=== PATIENT | male | born 1960 | race American Indian/Alaskan Native ===

== ENCOUNTER 2018-09-25 06:04 | Inpatient (IN) | payer BC, OTHER, SELFPAY ==
[2018-09-25] MEDS ORDERED: NACL 0.9% 1000 ML 1,000 ML IV ONE ×2 (06:51→07:56)
[2018-09-25 07:13] LABS: Hematocrit 41.3 % (35.5-45.6); Hemoglobin 13.7 gm/dl (11.8-15.2); Mean Corpuscular HGB Conc 33 % (32-34); Mean Corpuscular Volume 85 fl (84-94); Platelet Count 237 K/mm3 (140-440); Red Blood Count 4.87 M/mm3 (3.65-5.03); Red Cell Distribution Width 15.4 % (13.2-15.2)
[2018-09-25 07:32] LABS: Albumin 3.8 g/dL (3.9-5); Calcium 9.1 mg/dL (8.4-10.2)
[2018-09-25 07:45] LABS: Bilirubin,Urine NEG (Negative); Blood,Urine MOD (Negative); Color,Urine Amber (Yellow)
[2018-09-25] MEDS ORDERED: ZOSYN/NS 4.5GM/100ML 4.5 GM/100 ML VIAL IV ONE (07:56)
[2018-09-25] MEDS ORDERED: SUBLIMAZE IV ONE (08:05)
[2018-09-25] MEDS ORDERED: ZOFRAN IV ONE (08:05)
--- NOTE | 2018-09-25 08:10 | Emergency Department Report ---
ED Abdominal Pain HPI - General Chief Complaint: Abdominal Pain Stated Complaint: ABD PAIN Time Seen by Provider: 09/25/18 07:47 Source: patient Mode of arrival: Ambulatory Limitations: No Limitations - History of Present Illness Initial Comments: This is a 50-year-old male with abdominal pain who has just been recently placed in the bed. He tells me he's had left lower quadrant pain for the past approximately 3 days. He is a bit vague as to the acuity of onset. He states it's been progressive over the last 3 days and have bring his ability to walk. This is his first medical evaluation. The pain is severe. He is found to have an exquisitely tender abdomen. He states he's had no prior abdominal surgery however examination revealed presence of a previous inguinal hernia repair. He states he's had a lumbar fusion. MD Complaint: abdominal pain -: Gradual Location: LLQ Radiation: none Migration to: no migration Severity scale (0 -10): 10 Consistency: constant Improves With: nothing Worsens With: nothing - Related Data Allergies Allergy/AdvReac Type Severity Reaction Status Date / Time No Known Allergies Allergy Unverified 09/25/18 06:51 ED Review of Systems ROS: Stated complaint: ABD PAIN Other details as noted in HPI Constitutional: denies: chills, fever Eyes: denies: eye pain, eye discharge, vision change ENT: denies: ear pain, throat pain Respiratory: denies: cough, shortness of breath, wheezing Cardiovascular: denies: chest pain, palpitations Endocrine: no symptoms reported Gastrointestinal: as per HPI, abdominal pain. denies: diarrhea Genitourinary: denies: urgency, dysuria Musculoskeletal: denies: back pain, joint swelling, arthralgia Skin: denies: rash, lesions Neurological: denies: headache, weakness, paresthesias Psychiatric: denies: anxiety, depression Hematological/Lymphatic: denies: easy bleeding, easy bruising ED Past Medical Hx - Past Medical History Hx Hypertension: Yes - Surgical History Additional Surgical History: Back Fusion, Bilateral Knee Replacement. - Social History Smoking Status: Current Every Day Smoker Substance Use Type: None ED Physical Exam - General Limitations: No Limitations General appearance: alert, in no apparent distress - Head Head exam: Present: atraumatic, normocephalic - Eye Eye exam: Present: normal appearance - ENT ENT exam: Present: mucous membranes moist - Neck Neck exam: Present: normal inspection - Respiratory Respiratory exam: Present: normal lung sounds bilaterally. Absent: respiratory distress - Cardiovascular Cardiovascular Exam: Present: regular rate, normal rhythm. Absent: systolic murmur, diastolic murmur, rubs, gallop - GI/Abdominal GI/Abdominal exam: Present: soft, distended, tenderness, guarding, rebound, rigid (somewhat), diminished bowel sounds - Rectal Rectal exam: Present: deferred - Extremities Exam Extremities exam: Present: normal inspection - Back Exam Back exam: Present: normal inspection - Neurological Exam Neurological exam: Present: alert, oriented X3, CN II-XII intact. Absent: motor sensory deficit - Psychiatric Psychiatric exam: Present: normal affect, normal mood - Skin Skin exam: Present: warm, dry, intact, normal color. Absent: rash ED Course Vital Signs 09/25/18 09/25/18 09/25/18 06:07 08:21 09:00 Temperature 99.7 F H Pulse Rate 129 H 121 H Respiratory 18 16 18 Rate Blood Pressure 131/79 Blood Pressure 138/92 [Left] O2 Sat by Pulse 96 95 Oximetry - Reevaluation(s) Reevaluation #1: Chest x-ray suggesting the possibility of pneumoperitoneum on the right. An emergency plain CT will be performed. The surgeon has been paged. 09/25/18 08:21 Reevaluation #2: Discussed with radiologist. Discussed with general surgeon. He requested admission to medicine. Surgeon has assumed care. 09/25/18 10:31 ED Medical Decision Making - Lab Data Result diagrams: 09/25/18 07:03 09/25/18 07:03 Critical Care Time: Yes Critical care time in (mins) excluding proc time.: 70 Critical care attestation.: If time is entered above; I have spent that time in minutes in the direct care of this critically ill patient, excluding procedure time. ED Disposition Clinical Impression: Perforation bowel, Diverticulitis, Phlegmon Abdominal pain Qualifiers: Abdominal location: generalized Qualified Code(s): R10.84 - Generalized abdominal pain Disposition: OP ADMIT IP TO THIS HOSP Is pt being admited?: Yes Does the pt Need Aspirin: No Condition: Stable Time of Disposition: 10:33
[2018-09-25 08:36] LABS: INR 1.14 (0.87-1.13)
[2018-09-25 08:37] LABS: Partial Thromboplastin Time 36.5 Sec. (24.2-36.6)
--- NOTE | 2018-09-25 08:52 | XRay Report ---
FINAL REPORT EXAM: XR CHEST 1V AP HISTORY: hypertension TECHNIQUE: AP portable view(s) of the chest obtained. PRIORS: None. FINDINGS: No mediastinal shift. Cardiac silhouette is not enlarged. No pneumothorax, effusion, or focal pulmona ry opacity identified. No acute skeletal findings. IMPRESSION: No acute pulmonary finding identified.
[2018-09-25 09:37] LABS: Basophils % (Manual) 0 % (0.0-1.8); Eosinophils % (Manual) 0 % (0.0-4.3); Total Cells Counted 100
[2018-09-25] MEDS ORDERED: SODIUM CHLORIDE FLUSH SYRINGE 10 ML IV PRN ×2 (09:38→09:42)
[2018-09-25] MEDS ORDERED: TYLENOL PO PRN ×2 (09:38→09:42)
[2018-09-25] MEDS ORDERED: ZOFRAN IV PRN (09:38)
[2018-09-25 09:39] LABS: Platelet Estimate Consistent w Auto; RBC Morphology Normal
--- NOTE | 2018-09-25 09:41 | Cat Scan Report ---
FINAL REPORT EXAM: CT ABDOMEN PELVIS WO CON HISTORY: abd pain, suspect pneumoperitoneum TECHNIQUE: CT of the abdomen and pelvis without IV contrast. Coronal and sagittal reconstructed imag ing provided. PRIORS: None currently available. FINDINGS: ABDOMEN: Discoid atelectasis and or linear scarring both lung bases appears mild. Mild cardiomegaly. No pericardial effusion. No significant coronary artery disease. Kidneys: Fat attenuating lesion in the mid right renal cortex measures 5.4 mm. No hydronephrosis. No nephroureteral stones. Liver: Low-attenuation lesion the left liver on series 2:21 measures 12 mm. Nonspecific. Gallbladder, stomach, spleen, pancreas, and adrenals are unremarkable. There is no abdominal aortic aneurysm. Mild atherosclerotic disease noted. IVC is unremarkable. There is no periaortic or retroperitoneal adenopathy or mass. Wall thickening of the sigmoid colon. Surrounding stranding. Series 2:120 demonstrates a pocket of ga s outside of the sigmoid colon which may represent a contained micro perforation. Nearby anterior flu id collection measures 4.0 x 1.7 cm. Stranding and fluid in the left colonic gutter. Remainder of the colon does not demonstrate any wall thickening. Fluid stool in the right colon with [id number] distension. Appendix is normal. Terminal ileum is unremarkable. Small bowel loops do not demonstrate any obstructive pattern. Mild wall thickening of the small bowel loops around the sigmoid colon inflammation. No evidence for fistula. Fat containing umbilical hernia without strangulation. PELVIS: Limited CT images of the prostate are grossly unremarkable. Bladder is unremarkable. There is no pelvic mass or adenopathy. Inguinal regions are unremarkable. Bones: No suspicious osseous lesions on this limited examination of the skeleton. Metastatic disease better evaluated with bone scan. Degenerative changes are in the spine. Bilateral L5 spondylolysis. Grade 1 anterior subluxation and s evere degenerative disc at L5-S1. Bilateral fusion hardware at L5-S1 is grossly intact. IMPRESSION: Sigmoid colitis or diverticulitis with contained micro perforation. Nearby fluid collection may repre sent fluid or abscess. Mild collateral inflammation of the adjacent with small-bowel loops. No eviden ce for fistula at this time. Suspect diarrhea in the right colon. 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 Nonspecific low-attenuation lesion the left liver. Differential diagnosis includes cyst and hemangiom a. September 25, 2018 at 0634 PST: I discussed the findings over phone with Dr. Costa.
--- NOTE | 2018-09-25 09:48 | History and Physical Report ---
History of Present Illness Date of examination: 09/25/18 Date of admission: 09/25/18 Chief complaint: Severe Abd pain for 3 days History of present illness: Severe abdominal pain for 3 days.Progressively increasing over last 3 days.Pain is 10/10.No fever.Nausea present.Pain is sharp. Past History Past Medical History: No medical history Past Surgical History: No surgical history Social history: no significant social history, lives with family, full code Family history: hypertension Medications and Allergies Allergies Allergy/AdvReac Type Severity Reaction Status Date / Time No Known Allergies Allergy Unverified 09/25/18 06:51 Active Meds: Active Medications Acetaminophen (Tylenol) 650 mg PO Q4H PRN PRN Reason: Pain MILD(1-3)/Fever >100.5/QUEVEDO Acetaminophen (Tylenol) 650 mg PO Q4H PRN PRN Reason: Pain MILD(1-3)/Fever >100.5/QUEVEDO Hydromorphone HCl (Dilaudid) 1 mg IV Q3H PRN PRN Reason: Pain , Severe (7-10) Sodium Chloride (Nacl 0.9% 1000 Ml) 1,000 mls @ 250 mls/hr IV ONCE ONE Stop: 09/25/18 10:50 Last Admin: 09/25/18 08:26 Dose: 250 mls/hr Documented by: Sodium Chloride (Nacl 0.9% 1000 Ml) 1,000 mls @ 125 mls/hr IV DIRECT SAMMY Ondansetron HCl (Zofran) 4 mg IV Q8H PRN PRN Reason: Nausea And Vomiting Ondansetron HCl (Zofran) 4 mg IV Q3H PRN PRN Reason: Nausea And Vomiting Sodium Chloride (Sodium Chloride Flush Syringe 10 Ml) 10 ml IV BID SAMMY Sodium Chloride (Sodium Chloride Flush Syringe 10 Ml) 10 ml IV PRN PRN PRN Reason: LINE FLUSH Sodium Chloride (Sodium Chloride Flush Syringe 10 Ml) 10 ml IV BID SAMMY Sodium Chloride (Sodium Chloride Flush Syringe 10 Ml) 10 ml IV PRN PRN PRN Reason: LINE FLUSH Review of Systems All systems: negative Gastrointestinal: abdominal pain (10/10 sharpin nature), nausea Exam - Constitutional Vitals: Temp Pulse Resp BP Pulse Ox 99.7 F H 129 H 16 131/79 96 09/25/18 06:07 09/25/18 06:07 09/25/18 08:21 09/25/18 06:07 09/25/18 06:07 General appearance: Present: mild distress, well-nourished - EENT Eyes: Present: PERRL ENT: hearing intact, clear oral mucosa - Neck Neck: Present: supple, normal ROM - Respiratory Respiratory effort: normal Respiratory: bilateral: CTA - Cardiovascular Heart rate: 98 Rhythm: regular Heart Sounds: Present: S1 & S2. Absent: rub, click - Extremities Extremities: no ischemia, pulses intact, pulses symmetrical, No edema Peripheral Pulses: within normal limits - Abdominal General gastrointestinal: Present: tender, non-distended, hypoactive bowel sounds Localized gastrointestinal: tender: diffuse, guarding: diffuse, rebound: diffuse Male genitourinary: Present: normal - Integumentary Integumentary: Present: clear, warm, dry - Musculoskeletal Musculoskeletal: gait normal, strength equal bilaterally - Psychiatric Psychiatric: appropriate mood/affect, intact judgment & insight - Neurologic Neurologic: CNII-XII intact, moves all extremities Results - Labs CBC & Chem 7: 09/26/18 05:46 09/26/18 05:46 Labs: Laboratory Last Values WBC 20.2 K/mm3 (4.5-11.0) H 09/25/18 07:03 RBC 4.87 M/mm3 (3.65-5.03) 09/25/18 07:03 Hgb 13.7 gm/dl (11.8-15.2) 09/25/18 07:03 Hct 41.3 % (35.5-45.6) 09/25/18 07:03 MCV 85 fl (84-94) 09/25/18 07:03 MCH 28 pg (28-32) 09/25/18 07:03 MCHC 33 % (32-34) 09/25/18 07:03 RDW 15.4 % (13.2-15.2) H 09/25/18 07:03 Plt Count 237 K/mm3 (140-440) 09/25/18 07:03 Add Manual Diff Complete 09/25/18 07:03 Total Counted 100 09/25/18 07:03 Seg Neutrophils % Director Of Business Applications 09/25/18 07:03 Seg Neuts % (Manual) 89.0 % (40.0-70.0) H 09/25/18 07:03 Band Neutrophils % 0 % 09/25/18 07:03 Lymphocytes % (Manual) 5.0 % (13.4-35.0) L 09/25/18 07:03 Reactive Lymphs % (Man) 0 % 09/25/18 07:03 Monocytes % (Manual) 6.0 % (0.0-7.3) 09/25/18 07:03 Eosinophils % (Manual) 0 % (0.0-4.3) 09/25/18 07:03 Basophils % (Manual) 0 % (0.0-1.8) 09/25/18 07:03 Metamyelocytes % 0 % 09/25/18 07:03 Myelocytes % 0 % 09/25/18 07:03 Promyelocytes % 0 % 09/25/18 07:03 Blast Cells % 0 % 09/25/18 07:03 Nucleated RBC % Not Reportable 09/25/18 07:03 Seg Neutrophils # Man 18.0 K/mm3 (1.8-7.7) H 09/25/18 07:03 Band Neutrophils # 0.0 K/mm3 09/25/18 07:03 Lymphocytes # (Manual) 1.0 K/mm3 (1.2-5.4) L 09/25/18 07:03 Abs React Lymphs (Man) 0.0 K/mm3 09/25/18 07:03 Monocytes # (Manual) 1.2 K/mm3 (0.0-0.8) H 09/25/18 07:03 Eosinophils # (Manual) 0.0 K/mm3 (0.0-0.4) 09/25/18 07:03 Basophils # (Manual) 0.0 K/mm3 (0.0-0.1) 09/25/18 07:03 Metamyelocytes # 0.0 K/mm3 09/25/18 07:03 Myelocytes # 0.0 K/mm3 09/25/18 07:03 Promyelocytes # 0.0 K/mm3 09/25/18 07:03 Blast Cells # 0.0 K/mm3 09/25/18 07:03 WBC Morphology Not Reportable 09/25/18 07:03 Hypersegmented Neuts Not Reportable 09/25/18 07:03 Hyposegmented Neuts Not Reportable 09/25/18 07:03 Hypogranular Neuts Not Reportable 09/25/18 07:03 Smudge Cells Not Reportable 09/25/18 07:03 Toxic Granulation Not Reportable 09/25/18 07:03 Toxic Vacuolation Not Reportable 09/25/18 07:03 Dohle Bodies Not Reportable 09/25/18 07:03 Pelger-Huet Anomaly Not Reportable 09/25/18 07:03 Nkechi Rods Not Reportable 09/25/18 07:03 Platelet Estimate Consistent w auto 09/25/18 07:03 Clumped Platelets Not Reportable 09/25/18 07:03 Plt Clumps, EDTA Not Reportable 09/25/18 07:03 Large Platelets Not Reportable 09/25/18 07:03 Giant Platelets Not Reportable 09/25/18 07:03 Platelet Satelliting Not Reportable 09/25/18 07:03 Plt Morphology Comment Not Reportable 09/25/18 07:03 RBC Morphology Normal 09/25/18 07:03 Dimorphic RBCs Not Reportable 09/25/18 07:03 Polychromasia Not Reportable 09/25/18 07:03 Hypochromasia Not Reportable 09/25/18 07:03 Poikilocytosis Not Reportable 09/25/18 07:03 Anisocytosis Not Reportable 09/25/18 07:03 Microcytosis Not Reportable 09/25/18 07:03 Macrocytosis Not Reportable 09/25/18 07:03 Spherocytes Not Reportable 09/25/18 07:03 Pappenheimer Bodies Not Reportable 09/25/18 07:03 Sickle Cells Not Reportable 09/25/18 07:03 Target Cells Not Reportable 09/25/18 07:03 Tear Drop Cells Not Reportable 09/25/18 07:03 Ovalocytes Not Reportable 09/25/18 07:03 Helmet Cells Not Reportable 09/25/18 07:03 Garcia-Bovey Bodies Not Reportable 09/25/18 07:03 [place] Rings Not Reportable 09/25/18 07:03 [place] Cells Not Reportable 09/25/18 07:03 Bite Cells Not Reportable 09/25/18 07:03 Crenated Cell Not Reportable 09/25/18 07:03 Elliptocytes Not Reportable 09/25/18 07:03 Acanthocytes (Spur) Not Reportable 09/25/18 07:03 Rouleaux Not Reportable 09/25/18 07:03 Hemoglobin C Crystals Not Reportable 09/25/18 07:03 Schistocytes Not Reportable 09/25/18 07:03 Malaria parasites Not Reportable 09/25/18 07:03 Salo Bodies Not Reportable 09/25/18 07:03 Hem Pathologist Commnt No 09/25/18 07:03 PT 15.0 Sec. (12.2-14.9) H 09/25/18 08:00 INR 1.14 (0.87-1.13) H 09/25/18 08:00 APTT 36.5 Sec. (24.2-36.6) 09/25/18 08:00 Sodium 139 mmol/L (137-145) 09/25/18 07:03 Potassium 4.2 mmol/L (3.6-5.0) 09/25/18 07:03 Chloride 101.6 mmol/L (98-107) 09/25/18 07:03 Carbon Dioxide 26 mmol/L (22-30) 09/25/18 07:03 Anion Gap 16 mmol/L 09/25/18 07:03 BUN 14 mg/dL (9-20) 09/25/18 07:03 Creatinine 1.4 mg/dL (0.8-1.5) 09/25/18 07:03 Estimated GFR 52 ml/min 09/25/18 07:03 BUN/Creatinine Ratio 10 % 09/25/18 07:03 Glucose 122 mg/dL (75-100) H 09/25/18 07:03 Lactic Acid 1.10 mmol/L (0.7-2.0) 09/25/18 08:00 Calcium 9.1 mg/dL (8.4-10.2) 09/25/18 07:03 Magnesium 1.90 mg/dL (1.7-2.3) 09/25/18 08:00 Total Bilirubin 1.40 mg/dL (0.1-1.2) H 09/25/18 07:03 AST 25 units/L (5-40) 09/25/18 07:03 ALT 17 units/L (7-56) 09/25/18 07:03 Alkaline Phosphatase 89 units/L (35-129) 09/25/18 07:03 NT-Pro-B Natriuret Pep 160.5 pg/mL (0-900) 09/25/18 08:00 Total Protein 8.1 g/dL (6.3-8.2) 09/25/18 07:03 Albumin 3.8 g/dL (3.9-5) L 09/25/18 07:03 Albumin/Globulin Ratio 0.9 % 09/25/18 07:03 Lipase 13 units/L (13-60) 09/25/18 07:03 Urine Color Tania (Yellow) 09/25/18 07:25 Urine Turbidity Clear (Clear) 09/25/18 07:25 Urine pH 5.0 (5.0-7.0) 09/25/18 07:25 Ur Specific Margie 1.014 (1.003-1.030) 09/25/18 07:25 Urine Protein 30 mg/dl mg/dL (Negative) 09/25/18 07:25 Urine Glucose (UA) Neg mg/dL (Negative) 09/25/18 07:25 Urine Ketones Neg mg/dL (Negative) 09/25/18 07:25 Urine Blood Mod (Negative) 09/25/18 07:25 Urine Nitrite Neg (Negative) 09/25/18 07:25 Urine Bilirubin Neg (Negative) 09/25/18 07:25 Urine Urobilinogen 4.0 mg/dL (<2.0) 09/25/18 07:25 Ur Leukocyte Esterase Neg (Negative) 09/25/18 07:25 Urine WBC (Auto) 7.0 /HPF (0.0-6.0) H 09/25/18 07:25 Urine RBC (Auto) 2.0 /HPF (0.0-6.0) 09/25/18 07:25 U Epithel Cells (Auto) < 1.0 /HPF (0-13.0) 09/25/18 07:25 Blood Type O POSITIVE 09/25/18 08:00 - Imaging and Cardiology Chest x-ray: report reviewed CT scan - abdomen: report reviewed Assessment and Plan Advance Directives: Yes (Full code) VTE prophylaxis?: Chemical Plan of care discussed with patient/family: Yes - Patient Problems (1) Sepsis Current Visit: Yes Status: Acute Plan to address problem: IV abx (2) Diverticulitis Current Visit: Yes Status: Acute Plan to address problem: Sigmoid diverticulitis with micro perforation IV Abx for now Surgery on board (3) Perforation bowel Current Visit: Yes Status: Acute Plan to address problem: Possible perforated appendix? Surgery consult Medically cleared for surgery (4) Abdominal pain Current Visit: Yes Status: Acute Qualifiers: Abdominal location: generalized Qualified Code(s): R10.84 - Generalized abdominal pain Plan to address problem: Pain management (5) DVT prophylaxis Current Visit: Yes Status: Acute Plan to address problem: On Scds
[2018-09-25] MEDS ORDERED: SODIUM CHLORIDE FLUSH SYRINGE 10 ML IV SCH (10:00)
--- NOTE | 2018-09-25 10:05 | Anesthesia Day of Surgery ---
Anesthesia Day of Surgery - Day of Surgery Patient Examined: Yes Patient H&P Reviewed: Yes Patient is NPO: Yes
--- NOTE | 2018-09-25 10:05 | Anesthesia Consultation ---
Anesthesia Consult and Med Hx Date of service: 09/25/18 - Airway Anesthetic Teeth Evaluation: Good ROM Head & Neck: Adequate Mental/Hyoid Distance: Adequate Mallampati Class: Class II Intubation Access Assessment: Good - Pulmonary Exam CTA: Yes - Cardiac Exam Cardiac Exam: No Murmur - Pre-Operative Health Status ASA Pre-Surgery Classification: ASA2 Proposed Anesthetic Plan: General - Pulmonary Hx Smoking: Yes - Cardiovascular System Hx Hypertension: Yes
[2018-09-25] MEDS ORDERED: DIPRIVAN 10 MG/ML IV ONE (10:09)
[2018-09-25] MEDS ORDERED: TORADOL ONE (10:09)
[2018-09-25] MEDS ORDERED: DECADRON ONE (10:09)
[2018-09-25] MEDS ORDERED: SUBLIMAZE ONE (10:11)
[2018-09-25] MEDS ORDERED: LEVAQUIN 500MG/100ML 500 MG/100 ML BAG IV SCH (11:00)
--- NOTE | 2018-09-25 11:26 | Consultation ---
History of Present Illness - Reason for Consult Consult date: 09/25/18 Diverticulitis, perforation Requesting physician: DEREK MARRERO - History of Present Illness The patient is a 58-year-old male who presented to the emergency room earlier today with complaints of abdominal pain that started about 3 days ago. Started off with some nausea and vomiting followed by abdominal pain. His appetite also went down and he was trying to force feed himself. He did not really notice any fevers or chills. Due to the worsening abdominal pain, almost 05/25, he came to the ER where he underwent a CT abdomen and pelvis which revealed findings concerning for diverticulitis with possible microperforation and associated abscess. General surgery and infectious diseases were consulted. Patient currently continues to have left lower quadrant abdominal pain. Denies any shortness of breath or cough. He denies any drug allergies. Denies any recreational drug use or alcohol use. He does smoke about half a pack of cigarettes per day. Denies any previous history of diverticulitis. He reports having a colonoscopy about 3 years ago which was reportedly unremarkable. Review of Systems: General: no fevers,chills or rigors HEENT: no new visual disturbance Respiratory: No cough, sputum, hemoptysis or shortness of breath Cardiovascular: No chest pain, syncope Gastrointestinal: + for nausea, vomiting and diarrhea Genitourinary: No dysuria or hematuria Musculoskeletal: No new or worsening neck pain or back pain Neurologic: No headaches, seizures Hematologic: No easy bruising or bleeding Endocrine: No night sweats or acute weight loss Skin: negative for rash, jaundice Psychiatric: No suicidal or homicidal ideation Past History Past Medical History: No medical history Past Surgical History: No surgical history Social history: no significant social history, lives with family, full code Family history: hypertension Medications and Allergies Allergies Allergy/AdvReac Type Severity Reaction Status Date / Time No Known Allergies Allergy Unverified 09/25/18 06:51 Active Meds: Active Medications Acetaminophen (Tylenol) 650 mg PO Q4H PRN PRN Reason: Pain MILD(1-3)/Fever >100.5/QUEVEDO Hydromorphone HCl (Dilaudid) 1 mg IV Q3H PRN PRN Reason: Pain , Severe (7-10) Sodium Chloride (Nacl 0.9% 1000 Ml) 1,000 mls @ 125 mls/hr IV DIRECT SAMMY Potassium Chloride/Dextrose/Sod Cl (D5w/0.45% Nacl/Kcl 30 Meq) 30 meq in 1,000 mls @ 125 mls/hr IV DIRECT SAMMY Levofloxacin/Dextrose (Levaquin 500mg/100ml) 500 mg in 100 mls @ 100 mls/hr IV Q24HR SAMMY; Protocol Metronidazole (Flagyl 500 Mg/100 Ml) 500 mg in 100 mls @ 100 mls/hr IV Q8HR SAMMY; Protocol Morphine Sulfate (Morphine) 2 mg IV Q3H PRN PRN Reason: Pain, Moderate (4-6) Ondansetron HCl (Zofran) 4 mg IV Q3H PRN PRN Reason: Nausea And Vomiting Sodium Chloride (Sodium Chloride Flush Syringe 10 Ml) 10 ml IV BID SAMMY Sodium Chloride (Sodium Chloride Flush Syringe 10 Ml) 10 ml IV PRN PRN PRN Reason: LINE FLUSH Physical Examination - Physical Exam Narrative exam: Physical Exam: Constitutional: Alert, cooperative. No acute distress Head, Ears, Nose: Normocephalic, atraumatic. External ears, nose normal Eyes: Conjunctivae/corneas clear. No icterus. No ptosis. Neck: Supple, no meningeal signs Oral: dentition few missing teeth, no thrush Cardiovascular: S1, S2 normal. Respiratory: Good air entry, clear to auscultation bilaterally GI: moderate to severe tenderness, much more in LLQ; bowel sounds + Musculoskeletal: No pedal edema, no cyanosis. Skin: No rash or abscess Hem/Lymphatic: No palpable cervical or supraclavicular nodes. No lymphangitis Psych: Mood ok. Affect normal Neurological: Awake, alert, oriented. No gross abnormality - Constitutional Vitals: Vital Signs Temp Pulse Resp BP Pulse Ox 99.7 F H 121 H 18 138/92 95 09/25/18 06:07 09/25/18 09:00 09/25/18 09:00 09/25/18 09:00 09/25/18 09:00 Temperature -Last 24 Hours Temperature 99.7 F Results - Labs CBC & Chem 7: 09/25/18 07:03 09/25/18 07:03 Labs: Abnormal lab results 09/25/18 09/25/18 09/25/18 Range/Units 07:03 07:03 07:25 WBC 20.2 H (4.5-11.0) K/mm3 RDW 15.4 H (13.2-15.2) % Seg Neuts % (Manual) 89.0 H (40.0-70.0) % Lymphocytes % (Manual) 5.0 L (13.4-35.0) % Seg Neutrophils # Man 18.0 H (1.8-7.7) K/mm3 Lymphocytes # (Manual) 1.0 L (1.2-5.4) K/mm3 Monocytes # (Manual) 1.2 H (0.0-0.8) K/mm3 PT (12.2-14.9) Sec. INR (0.87-1.13) Glucose 122 H (75-100) mg/dL Total Bilirubin 1.40 H (0.1-1.2) mg/dL Albumin 3.8 L (3.9-5) g/dL Urine WBC (Auto) 7.0 H (0.0-6.0) /HPF 09/25/18 Range/Units 08:00 WBC (4.5-11.0) K/mm3 RDW (13.2-15.2) % Seg Neuts % (Manual) (40.0-70.0) % Lymphocytes % (Manual) (13.4-35.0) % Seg Neutrophils # Man (1.8-7.7) K/mm3 Lymphocytes # (Manual) (1.2-5.4) K/mm3 Monocytes # (Manual) (0.0-0.8) K/mm3 PT 15.0 H (12.2-14.9) Sec. INR 1.14 H (0.87-1.13) Glucose (75-100) mg/dL Total Bilirubin (0.1-1.2) mg/dL Albumin (3.9-5) g/dL Urine WBC (Auto) (0.0-6.0) /HPF - Imaging and Cardiology Chest x-ray: report reviewed, image reviewed (no obvious pneumonia) CT scan - abdomen: report reviewed, image reviewed (Sigmoid colitis or diverticulitis with contained micro perforation. Nearby fluid collection? abscess.) Assessment and Plan Cultures: None this admission A/P: 58-year-old male with tobacco abuse admitted with: #1 SIRS v/s Sepsis secondary to intra-abdominal infection: CT scan revealed fi ndings of diverticulitis possible microperforation and associated intra- abdominal abscess: Gen. surgery on board, surgical plan not decided yet: Open drainage v/s IR. From an ID standpoint, we will start him on ceftriaxone and Flagyl and follow along. #2 RAMANDEEP: creatinine 1.4. on IV fluids. Monitor. Recs: Discontinued levofloxacin Started IV ceftriaxone 2 g every 24 hours Continue IV Flagyl 500 mg every 8 hours Pending source control: surgical v/s IR drainage Will follow. Please call with questions. MD Vandana Ferrara [facility] C: [phone] O: [phone] F: [phone]
[2018-09-25] MEDS: ROCEPHIN/NS 2 GM/100 ML 2 GM/100 ML BAG IV SCH (12:24)
[2018-09-25] MEDS: NACL 0.9% 1000 ML 1,000 ML IV SCH (12:25)
[2018-09-25] MEDS: MORPHINE IV PRN ×2 (12:25→20:16)
--- NOTE | 2018-09-25 12:25 | Consultation ---
REASON FOR CONSULTATION: Diverticulitis with contained microperforation. HISTORY OF PRESENT ILLNESS: The patient is a pleasant 58-year-old gentleman who presented to the Emergency Room with approximately 3-day history of progressively worsening left lower quadrant abdominal pain. Also had one episode of nausea and vomiting. PAST MEDICAL HISTORY: Negative. PAST SURGICAL HISTORY: Status post bilateral total knee replacements. Also back fusion. An umbilical hernia repair. ALLERGIES: No known allergies. MEDICATIONS: No medications. FAMILY HISTORY: Negative. SOCIAL HISTORY: Smokes half a pack a day for approximately 10 years. Denies any ethanol intake. PHYSICAL EXAMINATION: GENERAL: At this time reveals the patient to be awake, alert, cooperative, in moderate discomfort, but no acute distress. VITAL SIGNS: Show her to be running a low-grade temperature of 99.7. Blood pressure is 138/92, pulse of 121, respirations of 18. ABDOMEN: Reveals to be moderately obese. There is localized left lower quadrant tenderness with mild guarding. The other portions of the abdomen are much less tender. Bowel sounds are hypoactive. LABORATORY DATA: Lab work at present includes a CBC, which shows a white count of 20.2, H and H is 13.7 and 41.3. Electrolytes are essentially within normal limits including sodium 139, potassium 4.2, chloride 101, BUN is 14, creatinine is 1.4. LFTs are essentially normal. Total bilirubin is 1.4. Lipase is 13. CT scan of the abdomen has been performed, which I have reviewed with the radiologist. The CT is without any IV or p.o. contrast. There are significant inflammatory changes noted around the sigmoid colon with possible contained microperforation. No evidence of any free air or abscess formation at this time. IMPRESSION: At this time is that of 58-year-old gentleman, rule out diverticulitis with contained microperforation. Plans at this time would be to keep the patient n.p.o. Start IV Levaquin and Flagyl. Also, we will obtain Infectious Disease evaluation. We will also order a CT scan with p.o. and IV contrast to rule out any abscess formation. I will follow closely with you. Thank you very much for consultation. JOB# [id number] JULIAN/NTS
--- NOTE | 2018-09-25 15:14 | Cat Scan Report ---
FINAL REPORT EXAM: CT ABDOMEN PELVIS W CON HISTORY: r/o sigmoid diverticular abscess TECHNIQUE: CT of the abdomen and pelvis was performed after the administration of intravenous contra st. Subsequently, CT of the abdomen and pelvis was performed in the delayed phase. 100 cc of Omnipaqu e 300 intravenous contrast were given. Reconstructions were included in the coronal and sagittal planes. PRIORS: CT of the abdomen and pelvis from earlier today. FINDINGS: Lower thorax: Bilateral dependent atelectasis is seen. The visualized portions of the heart are natalee l. Liver: The liver is normal in attenuation. No intrahepatic biliary duct dilation. Probable simple lef t hepatic cyst is unchanged. Gallbladder/ biliary system: No cholelithiasis. The common bile duct appears nondilated. Spleen: No splenic lesions are seen. Pancreas: No pancreatic lesions are seen. No pancreatic duct dilation. Kidneys: Several small bilateral low attenuation renal lesions are seen. The largest is seen in the i nterpolar region of the right kidney on series 2, image 67 measuring 1.2 centimeters. This is higher in attenuation than a simple cyst although there is likely no significant enhancement. This lesion li ramsey represents a hemorrhagic cyst. No hydronephrosis is seen on either side. No ureteral filling def ects. An additional simple right renal cyst is seen. Adrenal glands: No adrenal masses. Vasculature: The abdominal and pelvic vasculature is patent without variant anatomy. Lymph nodes: No enlarged lymph nodes are seen in the abdomen or pelvis. Bowel, mesentery, peritoneum: No bowel obstruction. The appendix is normal. Again seen is wall thicke kevin with surrounding inflammation of the sigmoid colon with perforation with extraluminal gas along the anterior and inferior aspect of the sigmoid colon. Small adjacent focal fluid collection demonstr ates mild peripheral enhancement on series 2, image 138 measuring 4.4 x 1.4 centimeters. Urinary bladder: No filling defects are seen. Pelvis: Normal anatomy is noted. No masses. Abdominal wall: There is a small fat containing right inguinal hernia. There is a small fat containin g umbilical hernia. Bones: Degenerative changes are seen in the spine. Post lumbar fusion. Grade 1 anterolisthesis of L5 on S1 at the level of the spinal fusion is likely chronic. 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 IMPRESSION: Again seen are findings of sigmoid colon diverticulitis with evidence of perforation with contained e xtraluminal gas. Small adjacent focal fluid collection concerning for a small abscess.
[2018-09-25] MEDS: FLAGYL 500 MG/100 ML 500 MG/100 ML BAG IV SCH ×2 (15:35→21:35)
[2018-09-25] MEDS ORDERED: TYLENOL PR PRN (21:17)
[2018-09-25] MEDS: SODIUM CHLORIDE FLUSH SYRINGE 10 ML IV SCH (21:36)
[2018-09-26] MEDS: NACL 0.9% 1000 ML 1,000 ML IV SCH ×3 (00:54→22:47)
[2018-09-26] MEDS: FLAGYL 500 MG/100 ML 500 MG/100 ML BAG IV SCH ×3 (05:29→22:46)
[2018-09-26] MEDS: MORPHINE IV PRN ×2 (05:29→18:38)
[2018-09-26 06:29] LABS: Basophils % (Auto) 0.2 % (0.0-1.8); Eosinophils # (Auto) 0.1 K/mm3 (0.0-0.4); Eosinophils % (Auto) 0.5 % (0.0-4.3); Hemoglobin 12.1 gm/dl (11.8-15.2); Lymphocytes # (Auto) 0.7 K/mm3 (1.2-5.4); Lymphocytes % (Auto) 4.6 % (13.4-35.0); Mean Corpuscular HGB Conc 34 % (32-34); Mean Corpuscular Volume 86 fl (84-94); Monocytes # (Auto) 0.8 K/mm3 (0.0-0.8); Monocytes % (Auto) 5.8 % (0.0-7.3); Platelet Count 159 K/mm3 (140-440); Red Blood Count 4.21 M/mm3 (3.65-5.03); Red Cell Distribution Width 15.5 % (13.2-15.2)
[2018-09-26 06:52] LABS: BUN/Creatinine Ratio 13; Blood Urea Nitrogen 12 mg/dL (9-20); Calcium 8.2 mg/dL (8.4-10.2); Hemolysis Index 8
[2018-09-26] MEDS: ROCEPHIN/NS 2 GM/100 ML 2 GM/100 ML BAG IV SCH (09:38)
[2018-09-26] MEDS: SODIUM CHLORIDE FLUSH SYRINGE 10 ML IV SCH (09:39)
[2018-09-26] MEDS: DILAUDID IV PRN (11:56)
--- NOTE | 2018-09-26 13:02 | Progress Note ---
Assessment and Plan HD #1 Pt feeling slightly better. Abd - slightly decreased LLQ tenderness but still present along with some muscle guarding. -BS wbc down. CT with contrast reviewed with Dr. Abraham. feels too early to call any possible small abscess formation. stable continue NPO until pain completely resolved off of narcotics IV antibiotics as per ID may transfer to floor from surg perspective continue present care will need f/u CT in around I wk. will also need outpt colonoscopy in 1-2 months, once acute diverticulitis resolves. Selected Entries 09/26/18 09/26/18 03:50 04:00 Temperature 99.4 F Pulse Rate 85 Blood Pressure 129/84 Laboratory Tests 09/25/18 09/26/18 09/26/18 07:03 05:46 05:46 WBC 20.2 H 14.3 H Hgb 13.7 12.1 Hct 41.3 36.0 Sodium 142 Potassium 3.8 Chloride 109.6 H Carbon Dioxide 20 L BUN 12 Creatinine 0.9 Objective Vital Signs - 12hr 09/26/18 09/26/18 09/26/18 01:00 01:10 01:20 Temperature Pulse Rate 109 H 109 H 109 H Respiratory 20 22 21 Rate Blood Pressure 126/83 126/83 126/83 O2 Sat by Pulse 96 97 98 Oximetry 09/26/18 09/26/18 09/26/18 01:30 01:40 01:50 Temperature Pulse Rate 109 H 108 H 109 H Respiratory 18 18 19 Rate Blood Pressure 126/83 126/83 126/83 O2 Sat by Pulse 96 96 98 Oximetry 09/26/18 09/26/18 09/26/18 02:00 02:10 02:20 Temperature Pulse Rate 106 H 106 H 111 H Respiratory 19 17 23 Rate Blood Pressure 131/81 131/81 131/81 O2 Sat by Pulse 97 97 95 Oximetry 09/26/18 09/26/18 09/26/18 02:30 02:40 02:50 Temperature Pulse Rate 107 H 107 H 108 H Respiratory 21 21 23 Rate Blood Pressure 131/81 131/81 131/81 O2 Sat by Pulse 96 98 96 Oximetry 09/26/18 09/26/18 09/26/18 03:00 03:10 03:20 Temperature Pulse Rate 108 H 108 H 107 H Respiratory 23 23 19 Rate Blood Pressure 129/84 129/84 129/84 O2 Sat by Pulse 96 98 98 Oximetry 09/26/18 09/26/18 09/26/18 03:30 03:40 03:50 Temperature Pulse Rate 108 H 108 H 108 H Respiratory 22 23 22 Rate Blood Pressure 129/84 129/84 129/84 O2 Sat by Pulse 95 97 98 Oximetry 09/26/18 09/26/18 09/26/18 04:00 04:10 04:20 Temperature 99.4 F Pulse Rate 106 H 105 H 102 H Respiratory 25 H 19 18 Rate Blood Pressure 111/65 111/65 111/65 O2 Sat by Pulse 98 96 97 Oximetry 09/26/18 09/26/18 09/26/18 04:30 04:40 04:50 Temperature Pulse Rate 107 H 106 H 107 H Respiratory 21 22 22 Rate Blood Pressure 111/65 111/65 111/65 O2 Sat by Pulse 98 97 98 Oximetry 09/26/18 09/26/18 09/26/18 05:00 05:10 05:20 Temperature Pulse Rate 107 H 106 H 108 H Respiratory 23 21 24 Rate Blood Pressure 111/65 111/65 111/65 O2 Sat by Pulse 98 96 97 Oximetry 09/26/18 09/26/18 09/26/18 05:30 05:40 05:50 Temperature Pulse Rate 105 H 106 H 107 H Respiratory 22 24 13 Rate Blood Pressure 135/79 135/79 135/79 O2 Sat by Pulse 97 97 98 Oximetry 09/26/18 09/26/18 09/26/18 06:00 06:10 06:20 Temperature Pulse Rate 105 H 108 H 107 H Respiratory 15 23 21 Rate Blood Pressure 118/85 118/85 118/85 O2 Sat by Pulse 97 96 98 Oximetry 09/26/18 09/26/18 09/26/18 06:30 06:40 06:50 Temperature Pulse Rate 110 H 105 H 106 H Respiratory 22 18 18 Rate Blood Pressure 118/85 118/85 118/85 O2 Sat by Pulse 95 95 95 Oximetry 09/26/18 09/26/18 09/26/18 07:00 07:10 07:20 Temperature Pulse Rate 107 H 106 H 108 H Respiratory 21 22 21 Rate Blood Pressure 122/78 122/78 122/78 O2 Sat by Pulse 96 97 97 Oximetry 09/26/18 09/26/18 09/26/18 07:30 07:40 07:50 Temperature Pulse Rate 104 H 105 H 105 H Respiratory 15 19 22 Rate Blood Pressure 122/78 122/78 122/78 O2 Sat by Pulse 98 97 97 Oximetry - Labs 09/26/18 05:46 09/26/18 05:46 Diabetes panel 09/26/18 Range/Units 05:46 Sodium 142 (137-145) mmol/L Potassium 3.8 (3.6-5.0) mmol/L Chloride 109.6 H (98-107) mmol/L Carbon Dioxide 20 L (22-30) mmol/L BUN 12 (9-20) mg/dL Creatinine 0.9 (0.8-1.5) mg/dL Glucose 87 (75-100) mg/dL Calcium 8.2 L (8.4-10.2) mg/dL Calcium panel 09/26/18 Range/Units 05:46 Calcium 8.2 L (8.4-10.2) mg/dL Pituitary panel 09/26/18 Range/Units 05:46 Sodium 142 (137-145) mmol/L Potassium 3.8 (3.6-5.0) mmol/L Chloride 109.6 H (98-107) mmol/L Carbon Dioxide 20 L (22-30) mmol/L BUN 12 (9-20) mg/dL Creatinine 0.9 (0.8-1.5) mg/dL Glucose 87 (75-100) mg/dL Calcium 8.2 L (8.4-10.2) mg/dL Adrenal panel 09/26/18 Range/Units 05:46 Sodium 142 (137-145) mmol/L Potassium 3.8 (3.6-5.0) mmol/L Chloride 109.6 H (98-107) mmol/L Carbon Dioxide 20 L (22-30) mmol/L BUN 12 (9-20) mg/dL Creatinine 0.9 (0.8-1.5) mg/dL Glucose 87 (75-100) mg/dL Calcium 8.2 L (8.4-10.2) mg/dL
--- NOTE | 2018-09-26 15:14 | Progress Note ---
Assessment and Plan Cultures: blood culture: no growth A/P: 58-year-old male with tobacco abuse admitted with: #1 SIRS v/s Sepsis secondary to intra-abdominal infection: CT scan revealed findings of diverticulitis possible microperforation and associated intra- abdominal abscess: Gen. surgery on board, surgical plan not decided yet: conservative management v/s open drainage v/s IR depending on repeat CT. Currently planned for conservative management. From an ID standpoint, we will continue him on ceftriaxone and Flagyl and follow along. #2 RAMANDEEP: resolved. Monitor. Recs: continue IV ceftriaxone 2 g every 24 hours continue IV Flagyl 500 mg every 8 hours conservative management v/s open drainage v/s IR depending on repeat CT. Currently planned for conservative management. Will follow. Please call with questions. Gabo Umanzor MD [facility] C: [phone] O: [phone] F: [phone] Subjective Date of service: 09/26/18 Interval history: No fever. continues with left lower abdominal pain. remains NPO. Objective - Exam Narrative Exam: Physical Exam: Constitutional: Alert, cooperative. No acute distress Head, Ears, Nose: Normocephalic, atraumatic. External ears, nose normal Eyes: Conjunctivae/corneas clear. No icterus. No ptosis. Neck: Supple, no meningeal signs Oral: dentition few missing teeth, no thrush Cardiovascular: S1, S2 normal. Respiratory: Good air entry, clear to auscultation bilaterally GI: moderate tenderness, much more in LLQ; bowel sounds + Musculoskeletal: No pedal edema, no cyanosis. Skin: No rash or abscess Hem/Lymphatic: No palpable cervical or supraclavicular nodes. No lymphangitis Psych: Mood ok. Affect normal Neurological: Awake, alert, oriented. No gross abnormality - Constitutional Vitals: Vital Signs Temp Pulse Resp BP Pulse Ox 99.0 F 109 H 12 137/85 97 09/26/18 12:00 09/26/18 13:20 09/26/18 13:20 09/26/18 13:20 09/26/18 13:20 Temperature -Last 24 Hours Temperature 99.0 F Temperature 98.4 F Temperature 99.4 F Temperature 98.8 F Temperature 100.2 F - Labs CBC & Chem 7: 09/26/18 05:46 09/26/18 05:46 Labs: Abnormal lab results 09/26/18 09/26/18 Range/Units 05:46 05:46 WBC 14.3 H (4.5-11.0) K/mm3 RDW 15.5 H (13.2-15.2) % Lymph % (Auto) 4.6 L (13.4-35.0) % Lymph # 0.7 L (1.2-5.4) K/mm3 Seg Neutrophils % 88.9 H (40.0-70.0) % Seg Neutrophils # 12.7 H (1.8-7.7) K/mm3 Chloride 109.6 H (98-107) mmol/L Carbon Dioxide 20 L (22-30) mmol/L Calcium 8.2 L (8.4-10.2) mg/dL
[2018-09-27] MEDS: MORPHINE IV PRN ×2 (02:43→11:55)
[2018-09-27] MEDS: FLAGYL 500 MG/100 ML 500 MG/100 ML BAG IV SCH ×3 (06:02→21:17)
--- NOTE | 2018-09-27 07:38 | Progress Note ---
Assessment and Plan - Patient Problems (1) Sepsis Current Visit: Yes Status: Acute Plan to address problem: IV abx (2) Diverticulitis Current Visit: Yes Status: Acute Plan to address problem: Sigmoid diverticulitis with micro perforation IV Abx for now Surgery on board (3) Perforation bowel Current Visit: Yes Status: Acute Plan to address problem: Possible perforated appendix? Surgery consult Medically cleared for surgery (4) Abdominal pain Current Visit: Yes Status: Acute Qualifiers: Abdominal location: generalized Qualified Code(s): R10.84 - Generalized abdominal pain Plan to address problem: Pain management (5) DVT prophylaxis Current Visit: Yes Status: Acute Plan to address problem: On Scds Subjective Date of service: 09/26/18 Principal diagnosis: Acute diverticulitis and sepsis Interval history: Sx better Objective - Constitutional Vitals: Vital Signs - 12hr 09/26/18 09/26/18 09/26/18 19:40 19:50 20:00 Temperature 100.4 F H Pulse Rate 106 H 102 H 101 H Pulse Rate [ 97 H From Monitor] Respiratory 11 L 18 17 Rate Respiratory Rate [Left Lower Abdomen] Blood Pressure 147/88 147/88 142/80 O2 Sat by Pulse 98 97 96 Oximetry 09/26/18 09/26/18 09/26/18 20:10 20:20 20:30 Temperature Pulse Rate 102 H 102 H 100 H Pulse Rate [ From Monitor] Respiratory 20 13 19 Rate Respiratory Rate [Left Lower Abdomen] Blood Pressure 142/80 142/80 142/80 O2 Sat by Pulse 97 98 96 Oximetry 09/26/18 09/26/18 09/26/18 20:34 20:40 20:50 Temperature Pulse Rate 102 H 102 H 98 H Pulse Rate [ From Monitor] Respiratory 18 22 17 Rate Respiratory Rate [Left Lower Abdomen] Blood Pressure 142/80 142/80 142/80 O2 Sat by Pulse 97 97 97 Oximetry 09/26/18 09/26/18 09/26/18 21:00 21:10 21:20 Temperature Pulse Rate 99 H 99 H 100 H Pulse Rate [ From Monitor] Respiratory 11 L 22 15 Rate Respiratory Rate [Left Lower Abdomen] Blood Pressure 147/91 147/91 147/91 O2 Sat by Pulse 93 98 98 Oximetry 09/26/18 09/26/18 09/26/18 21:30 21:40 21:50 Temperature Pulse Rate 99 H 98 H 102 H Pulse Rate [ From Monitor] Respiratory 13 18 16 Rate Respiratory Rate [Left Lower Abdomen] Blood Pressure 147/91 147/91 147/91 O2 Sat by Pulse 98 99 98 Oximetry 09/26/18 09/26/18 09/26/18 22:00 22:10 22:20 Temperature Pulse Rate 97 H 98 H 99 H Pulse Rate [ From Monitor] Respiratory 13 21 19 Rate Respiratory 20 Rate [Left Lower Abdomen] Blood Pressure 141/90 141/90 141/90 O2 Sat by Pulse 92 98 97 Oximetry 09/26/18 09/26/18 09/26/18 22:30 22:40 22:50 Temperature Pulse Rate 105 H 97 H 93 H Pulse Rate [ From Monitor] Respiratory 10 L 20 19 Rate Respiratory Rate [Left Lower Abdomen] Blood Pressure 141/90 141/90 141/90 O2 Sat by Pulse 99 99 98 Oximetry 09/26/18 09/26/18 09/26/18 23:00 23:10 23:20 Temperature Pulse Rate 96 H 96 H 102 H Pulse Rate [ From Monitor] Respiratory 17 11 L 20 Rate Respiratory Rate [Left Lower Abdomen] Blood Pressure 129/88 129/88 129/88 O2 Sat by Pulse 95 100 100 Oximetry 09/26/18 09/26/18 09/26/18 23:30 23:40 23:50 Temperature Pulse Rate 101 H 99 H 96 H Pulse Rate [ From Monitor] Respiratory 12 22 10 L Rate Respiratory Rate [Left Lower Abdomen] Blood Pressure 129/88 129/88 129/88 O2 Sat by Pulse 99 97 98 Oximetry 09/27/18 09/27/18 09/27/18 00:00 00:10 00:20 Temperature 95.7 F L Pulse Rate 96 H 96 H 98 H Pulse Rate [ 97 H From Monitor] Respiratory 15 21 11 L Rate Respiratory Rate [Left Lower Abdomen] Blood Pressure 144/90 144/90 144/90 O2 Sat by Pulse 93 99 99 Oximetry 09/27/18 09/27/18 09/27/18 00:30 00:40 00:50 Temperature Pulse Rate 96 H 98 H 99 H Pulse Rate [ From Monitor] Respiratory 18 18 25 H Rate Respiratory Rate [Left Lower Abdomen] Blood Pressure 144/90 144/90 144/90 O2 Sat by Pulse 94 99 96 Oximetry 09/27/18 09/27/18 09/27/18 01:00 01:10 01:20 Temperature Pulse Rate 95 H 97 H 100 H Pulse Rate [ From Monitor] Respiratory 18 12 13 Rate Respiratory Rate [Left Lower Abdomen] Blood Pressure 144/90 144/90 131/82 O2 Sat by Pulse 97 99 97 Oximetry 09/27/18 09/27/18 09/27/18 01:30 01:40 01:50 Temperature Pulse Rate 99 H 98 H 100 H Pulse Rate [ From Monitor] Respiratory 16 20 16 Rate Respiratory Rate [Left Lower Abdomen] Blood Pressure 131/82 131/82 131/82 O2 Sat by Pulse 97 98 96 Oximetry 09/27/18 09/27/18 09/27/18 02:00 02:10 02:20 Temperature Pulse Rate 95 H 94 H 101 H Pulse Rate [ From Monitor] Respiratory 17 16 18 Rate Respiratory Rate [Left Lower Abdomen] Blood Pressure 120/70 120/70 120/70 O2 Sat by Pulse 93 96 98 Oximetry 09/27/18 09/27/18 09/27/18 02:30 02:40 02:50 Temperature Pulse Rate 99 H 101 H 97 H Pulse Rate [ From Monitor] Respiratory 14 19 21 Rate Respiratory Rate [Left Lower Abdomen] Blood Pressure 120/70 120/70 120/70 O2 Sat by Pulse 96 96 98 Oximetry 09/27/18 09/27/18 09/27/18 03:00 03:10 03:20 Temperature Pulse Rate 96 H 95 H 97 H Pulse Rate [ From Monitor] Respiratory 21 20 20 Rate Respiratory Rate [Left Lower Abdomen] Blood Pressure 128/68 128/68 128/68 O2 Sat by Pulse 95 96 97 Oximetry 09/27/18 09/27/18 09/27/18 04:00 04:10 04:20 Temperature 98.9 F Pulse Rate 95 H 100 H 98 H Pulse Rate [ 95 H From Monitor] Respiratory 17 13 23 Rate Respiratory Rate [Left Lower Abdomen] Blood Pressure 128/68 148/93 148/93 O2 Sat by Pulse 97 97 97 Oximetry 09/27/18 09/27/18 09/27/18 04:30 04:40 04:50 Temperature Pulse Rate 97 H 99 H 101 H Pulse Rate [ From Monitor] Respiratory 21 21 12 Rate Respiratory Rate [Left Lower Abdomen] Blood Pressure 148/93 148/93 148/93 O2 Sat by Pulse 97 97 98 Oximetry 09/27/18 09/27/18 09/27/18 05:00 05:10 05:20 Temperature Pulse Rate 97 H 94 H 93 H Pulse Rate [ From Monitor] Respiratory 24 14 16 Rate Respiratory Rate [Left Lower Abdomen] Blood Pressure 146/90 146/90 146/90 O2 Sat by Pulse 96 96 97 Oximetry 09/27/18 09/27/18 09/27/18 05:30 05:40 05:50 Temperature Pulse Rate 98 H 93 H 94 H Pulse Rate [ From Monitor] Respiratory 22 15 17 Rate Respiratory Rate [Left Lower Abdomen] Blood Pressure 146/90 146/90 146/90 O2 Sat by Pulse 97 96 95 Oximetry 09/27/18 09/27/18 06:00 06:10 Temperature Pulse Rate 96 H 96 H Pulse Rate [ From Monitor] Respiratory 11 L 16 Rate Respiratory Rate [Left Lower Abdomen] Blood Pressure 142/90 142/90 O2 Sat by Pulse 96 96 Oximetry General appearance: Present: no acute distress, well-nourished - EENT Eyes: PERRL, EOM intact ENT: hearing intact, clear oral mucosa Ears: bilateral: normal - Neck Neck: supple, normal ROM - Respiratory Respiratory effort: normal Respiratory: bilateral: CTA - Breasts Breasts: normal - Cardiovascular Rhythm: regular Heart Sounds: Present: S1 & S2. Absent: gallop, rub Extremities: pulses intact, No edema, normal color, Full ROM - Gastrointestinal General gastrointestinal: Present: soft, tender, non-distended, hypoactive bowel sounds - Genitourinary Male genitourinary: normal - Integumentary Integumentary: clear, warm, dry - Musculoskeletal Musculoskeletal: 1, strength equal bilaterally - Neurologic Neurologic: moves all extremities - Psychiatric Psychiatric: memory intact, appropriate mood/affect, intact judgment & insight - Labs CBC & Chem 7: 09/26/18 05:46 09/26/18 05:46
[2018-09-27 08:13] LABS: Basophils % (Auto) 0.4 % (0.0-1.8); Eosinophils # (Auto) 0.1 K/mm3 (0.0-0.4); Eosinophils % (Auto) 1.2 % (0.0-4.3); Hematocrit 32.8 % (35.5-45.6); Hemoglobin 11.1 gm/dl (11.8-15.2); Lymphocytes # (Auto) 0.6 K/mm3 (1.2-5.4); Lymphocytes % (Auto) 5.9 % (13.4-35.0); Mean Corpuscular HGB Conc 34 % (32-34); Mean Corpuscular Volume 85 fl (84-94); Monocytes # (Auto) 0.7 K/mm3 (0.0-0.8); Monocytes % (Auto) 7.1 % (0.0-7.3); Platelet Count 174 K/mm3 (140-440); Red Blood Count 3.85 M/mm3 (3.65-5.03); Red Cell Distribution Width 15.4 % (13.2-15.2)
[2018-09-27 08:33] LABS: BUN/Creatinine Ratio 13; Blood Urea Nitrogen 10 mg/dL (9-20); Calcium 8.2 mg/dL (8.4-10.2); Hemolysis Index 10
--- NOTE | 2018-09-27 08:52 | Progress Note ---
Assessment and Plan Pt feeling "better". slightly less pain Abd soft, slightly decreased tenderness wbc down to 9.3 (from 20) slow clinical improvement surgically stable continue present care may transfer to surgical floor (3 [facility]) Selected Entries 09/27/18 09/27/18 06:10 08:00 Temperature 98.8 F Pulse Rate 96 H Respiratory 16 Rate Blood Pressure 142/90 Laboratory Tests 09/27/18 09/27/18 07:54 07:54 WBC 9.3 Hgb 11.1 L Hct 32.8 L Sodium 141 Potassium 3.4 L Chloride 104.2 BUN 10 Creatinine 0.8 Objective Vital Signs - 12hr 09/26/18 09/26/18 09/26/18 21:00 21:10 21:20 Temperature Pulse Rate 99 H 99 H 100 H Pulse Rate [ From Monitor] Respiratory 11 L 22 15 Rate Respiratory Rate [Left Lower Abdomen] Blood Pressure 147/91 147/91 147/91 O2 Sat by Pulse 93 98 98 Oximetry 09/26/18 09/26/18 09/26/18 21:30 21:40 21:50 Temperature Pulse Rate 99 H 98 H 102 H Pulse Rate [ From Monitor] Respiratory 13 18 16 Rate Respiratory Rate [Left Lower Abdomen] Blood Pressure 147/91 147/91 147/91 O2 Sat by Pulse 98 99 98 Oximetry 09/26/18 09/26/18 09/26/18 22:00 22:10 22:20 Temperature Pulse Rate 97 H 98 H 99 H Pulse Rate [ From Monitor] Respiratory 13 21 19 Rate Respiratory 20 Rate [Left Lower Abdomen] Blood Pressure 141/90 141/90 141/90 O2 Sat by Pulse 92 98 97 Oximetry 09/26/18 09/26/18 09/26/18 22:30 22:40 22:50 Temperature Pulse Rate 105 H 97 H 93 H Pulse Rate [ From Monitor] Respiratory 10 L 20 19 Rate Respiratory Rate [Left Lower Abdomen] Blood Pressure 141/90 141/90 141/90 O2 Sat by Pulse 99 99 98 Oximetry 09/26/18 09/26/18 09/26/18 23:00 23:10 23:20 Temperature Pulse Rate 96 H 96 H 102 H Pulse Rate [ From Monitor] Respiratory 17 11 L 20 Rate Respiratory Rate [Left Lower Abdomen] Blood Pressure 129/88 129/88 129/88 O2 Sat by Pulse 95 100 100 Oximetry 09/26/18 09/26/18 09/26/18 23:30 23:40 23:50 Temperature Pulse Rate 101 H 99 H 96 H Pulse Rate [ From Monitor] Respiratory 12 22 10 L Rate Respiratory Rate [Left Lower Abdomen] Blood Pressure 129/88 129/88 129/88 O2 Sat by Pulse 99 97 98 Oximetry 09/27/18 09/27/18 09/27/18 00:00 00:10 00:20 Temperature 95.7 F L Pulse Rate 96 H 96 H 98 H Pulse Rate [ 97 H From Monitor] Respiratory 15 21 11 L Rate Respiratory Rate [Left Lower Abdomen] Blood Pressure 144/90 144/90 144/90 O2 Sat by Pulse 93 99 99 Oximetry 09/27/18 09/27/18 09/27/18 00:30 00:40 00:50 Temperature Pulse Rate 96 H 98 H 99 H Pulse Rate [ From Monitor] Respiratory 18 18 25 H Rate Respiratory Rate [Left Lower Abdomen] Blood Pressure 144/90 144/90 144/90 O2 Sat by Pulse 94 99 96 Oximetry 09/27/18 09/27/18 09/27/18 01:00 01:10 01:20 Temperature Pulse Rate 95 H 97 H 100 H Pulse Rate [ From Monitor] Respiratory 18 12 13 Rate Respiratory Rate [Left Lower Abdomen] Blood Pressure 144/90 144/90 131/82 O2 Sat by Pulse 97 99 97 Oximetry 09/27/18 09/27/18 09/27/18 01:30 01:40 01:50 Temperature Pulse Rate 99 H 98 H 100 H Pulse Rate [ From Monitor] Respiratory 16 20 16 Rate Respiratory Rate [Left Lower Abdomen] Blood Pressure 131/82 131/82 131/82 O2 Sat by Pulse 97 98 96 Oximetry 09/27/18 09/27/18 09/27/18 02:00 02:10 02:20 Temperature Pulse Rate 95 H 94 H 101 H Pulse Rate [ From Monitor] Respiratory 17 16 18 Rate Respiratory Rate [Left Lower Abdomen] Blood Pressure 120/70 120/70 120/70 O2 Sat by Pulse 93 96 98 Oximetry 09/27/18 09/27/18 09/27/18 02:30 02:40 02:50 Temperature Pulse Rate 99 H 101 H 97 H Pulse Rate [ From Monitor] Respiratory 14 19 21 Rate Respiratory Rate [Left Lower Abdomen] Blood Pressure 120/70 120/70 120/70 O2 Sat by Pulse 96 96 98 Oximetry 09/27/18 09/27/18 09/27/18 03:00 03:10 03:20 Temperature Pulse Rate 96 H 95 H 97 H Pulse Rate [ From Monitor] Respiratory 21 20 20 Rate Respiratory Rate [Left Lower Abdomen] Blood Pressure 128/68 128/68 128/68 O2 Sat by Pulse 95 96 97 Oximetry 09/27/18 09/27/18 09/27/18 04:00 04:10 04:20 Temperature 98.9 F Pulse Rate 95 H 100 H 98 H Pulse Rate [ 95 H From Monitor] Respiratory 17 13 23 Rate Respiratory Rate [Left Lower Abdomen] Blood Pressure 128/68 148/93 148/93 O2 Sat by Pulse 97 97 97 Oximetry 09/27/18 09/27/18 09/27/18 04:30 04:40 04:50 Temperature Pulse Rate 97 H 99 H 101 H Pulse Rate [ From Monitor] Respiratory 21 21 12 Rate Respiratory Rate [Left Lower Abdomen] Blood Pressure 148/93 148/93 148/93 O2 Sat by Pulse 97 97 98 Oximetry 09/27/18 09/27/18 09/27/18 05:00 05:10 05:20 Temperature Pulse Rate 97 H 94 H 93 H Pulse Rate [ From Monitor] Respiratory 24 14 16 Rate Respiratory Rate [Left Lower Abdomen] Blood Pressure 146/90 146/90 146/90 O2 Sat by Pulse 96 96 97 Oximetry 09/27/18 09/27/18 09/27/18 05:30 05:40 05:50 Temperature Pulse Rate 98 H 93 H 94 H Pulse Rate [ From Monitor] Respiratory 22 15 17 Rate Respiratory Rate [Left Lower Abdomen] Blood Pressure 146/90 146/90 146/90 O2 Sat by Pulse 97 96 95 Oximetry 09/27/18 09/27/18 09/27/18 06:00 06:10 08:00 Temperature 98.8 F Pulse Rate 96 H 96 H Pulse Rate [ From Monitor] Respiratory 11 L 16 Rate Respiratory Rate [Left Lower Abdomen] Blood Pressure 142/90 142/90 O2 Sat by Pulse 96 96 Oximetry - Labs 09/27/18 07:54 09/27/18 07:54 Diabetes panel 09/27/18 Range/Units 07:54 Sodium 141 (137-145) mmol/L Potassium 3.4 L (3.6-5.0) mmol/L Chloride 104.2 (98-107) mmol/L Carbon Dioxide 22 (22-30) mmol/L BUN 10 (9-20) mg/dL Creatinine 0.8 (0.8-1.5) mg/dL Glucose 77 (75-100) mg/dL Calcium 8.2 L (8.4-10.2) mg/dL Calcium panel 09/27/18 Range/Units 07:54 Calcium 8.2 L (8.4-10.2) mg/dL Pituitary panel 09/27/18 Range/Units 07:54 Sodium 141 (137-145) mmol/L Potassium 3.4 L (3.6-5.0) mmol/L Chloride 104.2 (98-107) mmol/L Carbon Dioxide 22 (22-30) mmol/L BUN 10 (9-20) mg/dL Creatinine 0.8 (0.8-1.5) mg/dL Glucose 77 (75-100) mg/dL Calcium 8.2 L (8.4-10.2) mg/dL Adrenal panel 09/27/18 Range/Units 07:54 Sodium 141 (137-145) mmol/L Potassium 3.4 L (3.6-5.0) mmol/L Chloride 104.2 (98-107) mmol/L Carbon Dioxide 22 (22-30) mmol/L BUN 10 (9-20) mg/dL Creatinine 0.8 (0.8-1.5) mg/dL Glucose 77 (75-100) mg/dL Calcium 8.2 L (8.4-10.2) mg/dL
[2018-09-27] MEDS: ROCEPHIN/NS 2 GM/100 ML 2 GM/100 ML BAG IV SCH (10:21)
[2018-09-27] MEDS: SODIUM CHLORIDE FLUSH SYRINGE 10 ML IV SCH ×2 (14:22→21:16)
[2018-09-27] MEDS: D5W/0.45% NACL/KCL 30 MEQ 30 MEQ/1,000 ML BAG IV SCH (16:30)
--- NOTE | 2018-09-27 16:53 | Progress Note ---
Assessment and Plan Cultures: blood culture: no growth A/P: 58-year-old male with tobacco abuse admitted with: #1 SIRS v/s Sepsis secondary to intra-abdominal infection: CT scan revealed findings of diverticulitis possible microperforation and associated intra- abdominal abscess: Gen. surgery on board, surgical plan not decided yet: conservative management v/s open drainage v/s IR depending on repeat CT. Currently planned for conservative management. From an ID standpoint, we will continue him on ceftriaxone and Flagyl and follow along. #2 RAMANDEEP: resolved. Monitor. Recs: continue IV ceftriaxone 2 g every 24 hours continue IV Flagyl 500 mg every 8 hours conservative management v/s open drainage v/s IR depending on repeat CT. Currently planned for conservative management. [facility] M: [phone] O:[phone] Subjective Date of service: 09/27/18 Principal diagnosis: Acute diverticulitis and sepsis Interval history: Patient seen and examined. Denied generalized pain, fever or rashes. Stated that he was feeling much better today. Nurses notes, labs and reports reviewed, discussed with patient, questions answered. Objective - Exam Narrative Exam: Constitutional: Alert, cooperative. No acute distress Head, Ears, Nose: Normocephalic, atraumatic. External ears, nose normal Eyes: Conjunctivae/corneas clear. No icterus. No ptosis. Neck: Supple, no meningeal signs Oral: dentition few missing teeth, no thrush Cardiovascular: S1, S2 normal. Respiratory: Good air entry, clear to auscultation bilaterally GI: moderate tenderness, much more in LLQ; bowel sounds + Musculoskeletal: No pedal edema, no cyanosis. Skin: No rash or abscess Hem/Lymphatic: No palpable cervical or supraclavicular nodes. No lymphangitis Psych: Mood ok. Affect normal Neurological: Awake, alert, oriented. No gross abnormality - Constitutional Vitals: Vital Signs Temp Pulse Resp BP Pulse Ox 98.5 F 98 H 15 146/66 95 09/27/18 13:00 09/27/18 15:49 09/27/18 15:41 09/27/18 15:41 09/27/18 15:49 Temperature -Last 24 Hours Temperature 98.5 F Temperature 98.2 F Temperature 98.8 F Temperature 98.9 F Temperature 95.7 F Temperature 98.7 F Temperature 100.4 F Temperature 100 F - Labs CBC & Chem 7: 09/27/18 07:54 09/27/18 07:54 Labs: Abnormal lab results 09/27/18 09/27/18 Range/Units 07:54 07:54 Hgb 11.1 L (11.8-15.2) gm/dl Hct 32.8 L (35.5-45.6) % RDW 15.4 H (13.2-15.2) % Lymph % (Auto) 5.9 L (13.4-35.0) % Lymph # 0.6 L (1.2-5.4) K/mm3 Seg Neutrophils % 85.4 H (40.0-70.0) % Seg Neutrophils # 7.9 H (1.8-7.7) K/mm3 Potassium 3.4 L (3.6-5.0) mmol/L Calcium 8.2 L (8.4-10.2) mg/dL
--- NOTE | 2018-09-27 17:53 | Progress Note ---
Assessment and Plan Assessment and plan: Sigmoid diverticulitis with perforation - Patient's nothing by mouth - IV fluids - IV antibiotics - Showed improvement, conservative management - Surgery and ID is on board Disposition - Continue inpatient care History Interval history: Patient was seen and evaluated this morning, patient was admitted for diverticulitis with perforation. Hospitalist Physical - Physical exam Narrative exam: Patient was in distress from pain. The patient appeared well nourished and normally developed. Vital signs as documented. Head exam is unremarkable. No scleral icterus . Neck is without jugular venous distension, thyromegaly, or carotid bruits. Lungs are clear to auscultation. Cardiac exam reveals regular rate and Rhythm. First and second heart sounds normal. No murmurs, rubs or gallops. Abdominal exam reveals soft nontender, no guarding or rigidity. Extremities are nonedematous and both femoral and pedal pulses are normal. BRANCH ASSISTANT: Alert and oriented 3. No focal weakness. - Constitutional Vitals: Temp Pulse Resp BP Pulse Ox 98.5 F 98 H 15 146/66 95 09/27/18 13:00 09/27/18 15:49 09/27/18 15:41 09/27/18 15:41 09/27/18 15:49 General appearance: Present: no acute distress, well-nourished Results - Labs CBC & Chem 7: 09/28/18 11:15 09/28/18 11:15 Labs: Laboratory Last Values WBC 9.3 K/mm3 (4.5-11.0) 09/27/18 07:54 RBC 3.85 M/mm3 (3.65-5.03) 09/27/18 07:54 Hgb 11.1 gm/dl (11.8-15.2) L 09/27/18 07:54 Hct 32.8 % (35.5-45.6) L 09/27/18 07:54 MCV 85 fl (84-94) 09/27/18 07:54 MCH 29 pg (28-32) 09/27/18 07:54 MCHC 34 % (32-34) 09/27/18 07:54 RDW 15.4 % (13.2-15.2) H 09/27/18 07:54 Plt Count 174 K/mm3 (140-440) 09/27/18 07:54 Lymph % (Auto) 5.9 % (13.4-35.0) L 09/27/18 07:54 [place] % (Auto) 7.1 % (0.0-7.3) 09/27/18 07:54 Eos % (Auto) 1.2 % (0.0-4.3) 09/27/18 07:54 Baso % (Auto) 0.4 % (0.0-1.8) 09/27/18 07:54 Lymph # 0.6 K/mm3 (1.2-5.4) L 09/27/18 07:54 [place] # 0.7 K/mm3 (0.0-0.8) 09/27/18 07:54 Eos # 0.1 K/mm3 (0.0-0.4) 09/27/18 07:54 Baso # 0.0 K/mm3 (0.0-0.1) 09/27/18 07:54 Add Manual Diff Complete 09/25/18 07:03 Total Counted 100 09/25/18 07:03 Seg Neutrophils % 85.4 % (40.0-70.0) H 09/27/18 07:54 Seg Neuts % (Manual) 89.0 % (40.0-70.0) H 09/25/18 07:03 Band Neutrophils % 0 % 09/25/18 07:03 Lymphocytes % (Manual) 5.0 % (13.4-35.0) L 09/25/18 07:03 Reactive Lymphs % (Man) 0 % 09/25/18 07:03 Monocytes % (Manual) 6.0 % (0.0-7.3) 09/25/18 07:03 Eosinophils % (Manual) 0 % (0.0-4.3) 09/25/18 07:03 Basophils % (Manual) 0 % (0.0-1.8) 09/25/18 07:03 Metamyelocytes % 0 % 09/25/18 07:03 Myelocytes % 0 % 09/25/18 07:03 Promyelocytes % 0 % 09/25/18 07:03 Blast Cells % 0 % 09/25/18 07:03 Nucleated RBC % Not Reportable 09/25/18 07:03 Seg Neutrophils # 7.9 K/mm3 (1.8-7.7) H 09/27/18 07:54 Seg Neutrophils # Man 18.0 K/mm3 (1.8-7.7) H 09/25/18 07:03 Band Neutrophils # 0.0 K/mm3 09/25/18 07:03 Lymphocytes # (Manual) 1.0 K/mm3 (1.2-5.4) L 09/25/18 07:03 Abs React Lymphs (Man) 0.0 K/mm3 09/25/18 07:03 Monocytes # (Manual) 1.2 K/mm3 (0.0-0.8) H 09/25/18 07:03 Eosinophils # (Manual) 0.0 K/mm3 (0.0-0.4) 09/25/18 07:03 Basophils # (Manual) 0.0 K/mm3 (0.0-0.1) 09/25/18 07:03 Metamyelocytes # 0.0 K/mm3 09/25/18 07:03 Myelocytes # 0.0 K/mm3 09/25/18 07:03 Promyelocytes # 0.0 K/mm3 09/25/18 07:03 Blast Cells # 0.0 K/mm3 09/25/18 07:03 WBC Morphology Not Reportable 09/25/18 07:03 Hypersegmented Neuts Not Reportable 09/25/18 07:03 Hyposegmented Neuts Not Reportable 09/25/18 07:03 Hypogranular Neuts Not Reportable 09/25/18 07:03 Smudge Cells Not Reportable 09/25/18 07:03 Toxic Granulation Not Reportable 09/25/18 07:03 Toxic Vacuolation Not Reportable 09/25/18 07:03 Dohle Bodies Not Reportable 09/25/18 07:03 Pelger-Huet Anomaly Not Reportable 09/25/18 07:03 Nkechi Rods Not Reportable 09/25/18 07:03 Platelet Estimate Consistent w auto 09/25/18 07:03 Clumped Platelets Not Reportable 09/25/18 07:03 Plt Clumps, EDTA Not Reportable 09/25/18 07:03 Large Platelets Not Reportable 09/25/18 07:03 Giant Platelets Not Reportable 09/25/18 07:03 Platelet Satelliting Not Reportable 09/25/18 07:03 Plt Morphology Comment Not Reportable 09/25/18 07:03 RBC Morphology Normal 09/25/18 07:03 Dimorphic RBCs Not Reportable 09/25/18 07:03 Polychromasia Not Reportable 09/25/18 07:03 Hypochromasia Not Reportable 09/25/18 07:03 Poikilocytosis Not Reportable 09/25/18 07:03 Anisocytosis Not Reportable 09/25/18 07:03 Microcytosis Not Reportable 09/25/18 07:03 Macrocytosis Not Reportable 09/25/18 07:03 Spherocytes Not Reportable 09/25/18 07:03 Pappenheimer Bodies Not Reportable 09/25/18 07:03 Sickle Cells Not Reportable 09/25/18 07:03 Target Cells Not Reportable 09/25/18 07:03 Tear Drop Cells Not Reportable 09/25/18 07:03 Ovalocytes Not Reportable 09/25/18 07:03 Helmet Cells Not Reportable 09/25/18 07:03 [place] Bodies Not Reportable 09/25/18 07:03 [place] Rings Not Reportable 09/25/18 07:03 Kati Cells Not Reportable 09/25/18 07:03 Bite Cells Not Reportable 09/25/18 07:03 Crenated Cell Not Reportable 09/25/18 07:03 Elliptocytes Not Reportable 09/25/18 07:03 Acanthocytes (Spur) Not Reportable 09/25/18 07:03 Rouleaux Not Reportable 09/25/18 07:03 Hemoglobin C Crystals Not Reportable 09/25/18 07:03 Schistocytes Not Reportable 09/25/18 07:03 Malaria parasites Not Reportable 09/25/18 07:03 Salo Bodies Not Reportable 09/25/18 07:03 Hem Pathologist Commnt No 09/25/18 07:03 PT 15.0 Sec. (12.2-14.9) H 09/25/18 08:00 INR 1.14 (0.87-1.13) H 09/25/18 08:00 APTT 36.5 Sec. (24.2-36.6) 09/25/18 08:00 Sodium 141 mmol/L (137-145) 09/27/18 07:54 Potassium 3.4 mmol/L (3.6-5.0) L 09/27/18 07:54 Chloride 104.2 mmol/L (98-107) 09/27/18 07:54 Carbon Dioxide 22 mmol/L (22-30) 09/27/18 07:54 Anion Gap 18 mmol/L 09/27/18 07:54 BUN 10 mg/dL (9-20) 09/27/18 07:54 Creatinine 0.8 mg/dL (0.8-1.5) 09/27/18 07:54 Estimated GFR > 60 ml/min 09/27/18 07:54 BUN/Creatinine Ratio 13 % 09/27/18 07:54 Glucose 77 mg/dL (75-100) 09/27/18 07:54 Lactic Acid 1.10 mmol/L (0.7-2.0) 09/25/18 08:00 Calcium 8.2 mg/dL (8.4-10.2) L 09/27/18 07:54 Magnesium 1.90 mg/dL (1.7-2.3) 09/25/18 08:00 Total Bilirubin 1.40 mg/dL (0.1-1.2) H 09/25/18 07:03 AST 25 units/L (5-40) 09/25/18 07:03 ALT 17 units/L (7-56) 09/25/18 07:03 Alkaline Phosphatase 89 units/L (35-129) 09/25/18 07:03 NT-Pro-B Natriuret Pep 160.5 pg/mL (0-900) 09/25/18 08:00 Total Protein 8.1 g/dL (6.3-8.2) 09/25/18 07:03 Albumin 3.8 g/dL (3.9-5) L 09/25/18 07:03 Albumin/Globulin Ratio 0.9 % 09/25/18 07:03 Lipase 13 units/L (13-60) 09/25/18 07:03 Urine Color Tania (Yellow) 09/25/18 07:25 Urine Turbidity Clear (Clear) 09/25/18 07:25 Urine pH 5.0 (5.0-7.0) 09/25/18 07:25 Ur Specific [place] 1.014 (1.003-1.030) 09/25/18 07:25 Urine Protein 30 mg/dl mg/dL (Negative) 09/25/18 07:25 Urine Glucose (UA) Neg mg/dL (Negative) 09/25/18 07:25 Urine Ketones Neg mg/dL (Negative) 09/25/18 07:25 Urine Blood Mod (Negative) 09/25/18 07:25 Urine Nitrite Neg (Negative) 09/25/18 07:25 Urine Bilirubin Neg (Negative) 09/25/18 07:25 Urine Urobilinogen 4.0 mg/dL (<2.0) 09/25/18 07:25 Ur Leukocyte Esterase Neg (Negative) 09/25/18 07:25 Urine WBC (Auto) 7.0 /HPF (0.0-6.0) H 09/25/18 07:25 Urine RBC (Auto) 2.0 /HPF (0.0-6.0) 09/25/18 07:25 U Epithel Cells (Auto) < 1.0 /HPF (0-13.0) 09/25/18 07:25 Blood Type O POSITIVE 09/25/18 08:00 Antibody Screen Negative 09/25/18 08:00
[2018-09-28] MEDS: D5W/0.45% NACL/KCL 30 MEQ 30 MEQ/1,000 ML BAG IV SCH (00:11)
[2018-09-28] MEDS: FLAGYL 500 MG/100 ML 500 MG/100 ML BAG IV SCH ×3 (05:27→21:38)
[2018-09-28 06:10] LABS: BUN/Creatinine Ratio 11; Blood Urea Nitrogen 9 mg/dL (9-20); Calcium 8.6 mg/dL (8.4-10.2); Hemolysis Index 2
[2018-09-28] MEDS: MORPHINE IV PRN (08:24)
[2018-09-28] MEDS: DILAUDID IV PRN ×2 (10:14→21:37)
[2018-09-28] MEDS: ROCEPHIN/NS 2 GM/100 ML 2 GM/100 ML BAG IV SCH (10:35)
--- NOTE | 2018-09-28 10:42 | Progress Note ---
Assessment and Plan Cultures: blood culture: no growth A/P: 58-year-old male with tobacco abuse admitted with: #1 SIRS v/s Sepsis Improved. secondary to intra-abdominal infection: CT scan revealed findings of diverticulitis possible microperforation and associated intra-abdominal abscess: Increased LLQ pain today. Repeat CT today shows Persistent sigmoid diverticulitis. There is increased free intraperitoneal air and fluid since 09/25/18 examination- taken to the OR for exploaratory lap- Surgery following #2 RAMANDEEP: resolved. Monitor. Recs: continue IV ceftriaxone 2 g every 24 hours continue IV Flagyl 500 mg every 8 hours [facility] M: [id number] O:[phone] Subjective Date of service: 09/28/18 Principal diagnosis: Acute diverticulitis and sepsis Interval history: Patient seen and examined. States that he is having LLQ pain 8/10 on numeric pain scale. Nurse at bedside and is aware. Objective - Exam Narrative Exam: Constitutional: Alert, acute distress observed, LLQ pain 8/10 on numeric pain scale Head, Ears, Nose: Normocephalic, atraumatic. External ears, nose normal Eyes: Conjunctivae/corneas clear. No icterus. No ptosis. Neck: Supple, no meningeal signs Oral: dentition few missing teeth, no thrush Cardiovascular: S1, S2 normal. Respiratory: Good air entry, clear to auscultation bilaterally GI: bowel sounds +, +pain LLQ Musculoskeletal: No pedal edema, no cyanosis. Skin: No rash or abscess Hem/Lymphatic: No palpable cervical or supraclavicular nodes. No lymphangitis Psych: Mood ok. Affect normal Neurological: Awake, alert, oriented. No gross abnormality - Constitutional Vitals: Vital Signs Temp Pulse Resp BP Pulse Ox 98.2 F 88 18 142/89 99 09/28/18 07:08 09/28/18 07:08 09/28/18 07:08 09/28/18 07:08 09/28/18 07:08 Temperature -Last 24 Hours Temperature 98.2 F Temperature 98.3 F Temperature 98.5 F Temperature 98.2 F - Labs CBC & Chem 7: 09/28/18 11:15 09/28/18 11:15 Labs: Abnormal lab results 09/28/18 Range/Units 05:26 Glucose 112 H (75-100) mg/dL
[2018-09-28] MEDS ORDERED: DILAUDID IV ONE (10:45)
--- NOTE | 2018-09-28 10:46 | Progress Note ---
Assessment and Plan Pt just began experiencing new onset of sudden lower abd pain Abd - increased lower abd tenderness r/o free perforation with peritonitis? STAT CT abd & pelvis now may need to proceed with expl lap pending CT findings Objective Vital Signs - 12hr 09/28/18 09/28/18 05:22 07:08 Temperature 98.2 F Pulse Rate 89 88 Respiratory 20 18 Rate Blood Pressure 142/96 142/89 O2 Sat by Pulse 98 99 Oximetry - Labs 09/27/18 07:54 09/28/18 05:26 Diabetes panel 09/28/18 Range/Units 05:26 Sodium 140 (137-145) mmol/L Potassium 3.6 (3.6-5.0) mmol/L Chloride 104.5 (98-107) mmol/L Carbon Dioxide 23 (22-30) mmol/L BUN 9 (9-20) mg/dL Creatinine 0.8 (0.8-1.5) mg/dL Glucose 112 H (75-100) mg/dL Calcium 8.6 (8.4-10.2) mg/dL Calcium panel 09/28/18 Range/Units 05:26 Calcium 8.6 (8.4-10.2) mg/dL Pituitary panel 09/28/18 Range/Units 05:26 Sodium 140 (137-145) mmol/L Potassium 3.6 (3.6-5.0) mmol/L Chloride 104.5 (98-107) mmol/L Carbon Dioxide 23 (22-30) mmol/L BUN 9 (9-20) mg/dL Creatinine 0.8 (0.8-1.5) mg/dL Glucose 112 H (75-100) mg/dL Calcium 8.6 (8.4-10.2) mg/dL Adrenal panel 09/28/18 Range/Units 05:26 Sodium 140 (137-145) mmol/L Potassium 3.6 (3.6-5.0) mmol/L Chloride 104.5 (98-107) mmol/L Carbon Dioxide 23 (22-30) mmol/L BUN 9 (9-20) mg/dL Creatinine 0.8 (0.8-1.5) mg/dL Glucose 112 H (75-100) mg/dL Calcium 8.6 (8.4-10.2) mg/dL
[2018-09-28 11:44] LABS: Hemoglobin 13.9 gm/dl (11.8-15.2); Mean Corpuscular HGB Conc 33 % (32-34); Mean Corpuscular Volume 86 fl (84-94); Red Blood Count 4.91 M/mm3 (3.65-5.03); Red Cell Distribution Width 15.2 % (13.2-15.2)
[2018-09-28] MEDS: ZOFRAN IV PRN ×2 (11:45→21:38)
[2018-09-28 11:57] LABS: BUN/Creatinine Ratio 10; Blood Urea Nitrogen 9 mg/dL (9-20); Calcium 8.6 mg/dL (8.4-10.2); Hemolysis Index 15
[2018-09-28 12:43] LABS: Anisocytosis 1+; Basophils % (Manual) 0 % (0.0-1.8); Eosinophils % (Manual) 0 % (0.0-4.3); Ovalocytes Few; Platelet Count 139 K/mm3 (140-440); Platelet Estimate Consistent w Auto; Poikilocytosis 1+; Total Cells Counted 100
[2018-09-28] MEDS ORDERED: DILAUDID ONE (14:03)
[2018-09-28] MEDS ORDERED: XYLOCAINE MPF 2% ONE (14:03)
[2018-09-28] MEDS ORDERED: ZEMURON IV ONE ×2 (14:04→16:19)
[2018-09-28] MEDS ORDERED: QUELICIN ONE (14:04)
[2018-09-28] MEDS ORDERED: AMIDATE IV ONE (14:04)
--- NOTE | 2018-09-28 14:04 | Cat Scan Report ---
CT ABDOMEN PELVIS WITH CONTRAST: HISTORY: Abdominal pain and cramping, peritonitis. COMPARISON: 09/25/18. TECHNIQUE: Helical CT in 1.25mm intervals following IV contrast. Sagittal and coronal reconstructions. FINDINGS: There is increased free intraperitoneal air and fluid since the previous examination. There are persistent findings of sigmoid diverticulitis. The previously described fluid collection in the anterior left lower quadrant measures 4.9 x 1.6 cm in axial plane but today this collection demonstrates trace internal oral contrast and increased gas. A developing abscess is suspected. The liver, biliary system, pancreas, spleen, kidneys, collecting systems and adrenal glands remain unremarkable. Heart size is within normal limits. The visualized lung bases are clear. IMPRESSION: Persistent sigmoid diverticulitis. There is increased free intraperitoneal air and fluid since 09/25/18 examination. Please see above. These findings were discussed with Dr. Antunez at 1343 hrs.
[2018-09-28] MEDS ORDERED: LACTATED RINGERS 1,000 ML ONE ×3 (14:29→18:42)
[2018-09-28] MEDS ORDERED: ZOFRAN IV PRN (14:36)
--- NOTE | 2018-09-28 14:38 | Anesthesia Day of Surgery ---
Anesthesia Day of Surgery - Day of Surgery Patient Examined: Yes Patient H&P Reviewed: Yes Patient is NPO: Yes
[2018-09-28] MEDS ORDERED: DIPRIVAN 10 MG/ML IV ONE (14:50)
[2018-09-28] MEDS ORDERED: VERSED IV NR (15:00)
[2018-09-28] MEDS ORDERED: LACTATED RINGERS 1,000 ML IV SCH (15:27)
--- NOTE | 2018-09-28 17:06 | Progress Note ---
Assessment and Plan Assessment and plan: 58-year-old male was admitted for measurement of sigmoid diverticulitis is perforation. Patient was treated with IV antibiotics and was getting better. Today the patient started to have lower abdominal pain, associated guarding and rigidity Stat CT was done and showed increased air in the peritoneum, and worsening of sigmoid diverticulitis. Surgery was notified and to OR urgently. Patient may go to ICU after surgery. History Interval history: Patient was seen and evaluated this morning, patient was admitted for diverticulitis with perforation. Patient is complaining severe lower abdominal pain, with guarding and tenderness. Hospitalist Physical - Physical exam Narrative exam: Patient was in distress from pain. The patient appeared well nourished and normally developed. Vital signs as documented. Head exam is unremarkable. No scleral icterus . Neck is without jugular venous distension, thyromegaly, or carotid bruits. Lungs are clear to auscultation. Cardiac exam reveals regular rate and Rhythm. First and second heart sounds normal. No murmurs, rubs or gallops. Abdominal exam reveals lower abdominal tenderness, was guarding and rigidity. Extremities are nonedematous and both femoral and pedal pulses are normal. INSTRUCTIONAL TECHNOLOGY FACILITATOR: Alert and oriented 3. No focal weakness. - Constitutional Vitals: Temp Pulse Resp BP Pulse Ox 103 F H 112 H 16 128/80 95 09/28/18 15:03 09/28/18 15:03 09/28/18 15:03 09/28/18 15:03 09/28/18 15:03 General appearance: Present: no acute distress, well-nourished Results - Labs CBC & Chem 7: 09/28/18 11:15 09/28/18 11:15 Labs: Laboratory Last Values WBC 8.7 K/mm3 (4.5-11.0) 09/28/18 11:15 RBC 4.91 M/mm3 (3.65-5.03) 09/28/18 11:15 Hgb 13.9 gm/dl (11.8-15.2) 09/28/18 11:15 Hct 42.0 % (35.5-45.6) D 09/28/18 11:15 MCV 86 fl (84-94) 09/28/18 11:15 MCH 28 pg (28-32) 09/28/18 11:15 MCHC 33 % (32-34) 09/28/18 11:15 RDW 15.2 % (13.2-15.2) 09/28/18 11:15 Plt Count 139 K/mm3 (140-440) L 09/28/18 11:15 Lymph % (Auto) Freezer Assistant 09/28/18 11:15 [place] % (Auto) Freezer Assistant 09/28/18 11:15 Eos % (Auto) Freezer Assistant 09/28/18 11:15 Baso % (Auto) Freezer Assistant 09/28/18 11:15 Lymph # Freezer Assistant 09/28/18 11:15 [place] # Freezer Assistant 09/28/18 11:15 Eos # Freezer Assistant 09/28/18 11:15 Baso # Freezer Assistant 09/28/18 11:15 Add Manual Diff Complete 09/28/18 11:15 Total Counted 100 09/28/18 11:15 Seg Neutrophils % Freezer Assistant 09/28/18 11:15 Seg Neuts % (Manual) 92.0 % (40.0-70.0) H 09/28/18 11:15 Band Neutrophils % 0 % 09/28/18 11:15 Lymphocytes % (Manual) 5.0 % (13.4-35.0) L 09/28/18 11:15 Reactive Lymphs % (Man) 0 % 09/28/18 11:15 Monocytes % (Manual) 3.0 % (0.0-7.3) 09/28/18 11:15 Eosinophils % (Manual) 0 % (0.0-4.3) 09/28/18 11:15 Basophils % (Manual) 0 % (0.0-1.8) 09/28/18 11:15 Metamyelocytes % 0 % 09/28/18 11:15 Myelocytes % 0 % 09/28/18 11:15 Promyelocytes % 0 % 09/28/18 11:15 Blast Cells % 0 % 09/28/18 11:15 Nucleated RBC % Not Reportable 09/28/18 11:15 Seg Neutrophils # Freezer Assistant 09/28/18 11:15 Seg Neutrophils # Man 8.0 K/mm3 (1.8-7.7) H 09/28/18 11:15 Band Neutrophils # 0.0 K/mm3 09/28/18 11:15 Lymphocytes # (Manual) 0.4 K/mm3 (1.2-5.4) L 09/28/18 11:15 Abs React Lymphs (Man) 0.0 K/mm3 09/28/18 11:15 Monocytes # (Manual) 0.3 K/mm3 (0.0-0.8) 09/28/18 11:15 Eosinophils # (Manual) 0.0 K/mm3 (0.0-0.4) 09/28/18 11:15 Basophils # (Manual) 0.0 K/mm3 (0.0-0.1) 09/28/18 11:15 Metamyelocytes # 0.0 K/mm3 09/28/18 11:15 Myelocytes # 0.0 K/mm3 09/28/18 11:15 Promyelocytes # 0.0 K/mm3 09/28/18 11:15 Blast Cells # 0.0 K/mm3 09/28/18 11:15 WBC Morphology Not Reportable 09/28/18 11:15 Hypersegmented Neuts Not Reportable 09/28/18 11:15 Hyposegmented Neuts Not Reportable 09/28/18 11:15 Hypogranular Neuts Not Reportable 09/28/18 11:15 Smudge Cells Not Reportable 09/28/18 11:15 Toxic Granulation Not Reportable 09/28/18 11:15 Toxic Vacuolation Not Reportable 09/28/18 11:15 Dohle Bodies Not Reportable 09/28/18 11:15 Pelger-Huet Anomaly Not Reportable 09/28/18 11:15 Nkechi Rods Not Reportable 09/28/18 11:15 Platelet Estimate Consistent w auto 09/28/18 11:15 Clumped Platelets Not Reportable 09/28/18 11:15 Plt Clumps, EDTA Not Reportable 09/28/18 11:15 Large Platelets Not Reportable 09/28/18 11:15 Giant Platelets Not Reportable 09/28/18 11:15 Platelet Satelliting Not Reportable 09/28/18 11:15 Plt Morphology Comment Not Reportable 09/28/18 11:15 RBC Morphology Not Reportable 09/28/18 11:15 Dimorphic RBCs Not Reportable 09/28/18 11:15 Polychromasia Not Reportable 09/28/18 11:15 Hypochromasia Not Reportable 09/28/18 11:15 Poikilocytosis 1+ 09/28/18 11:15 Anisocytosis 1+ 09/28/18 11:15 Microcytosis Not Reportable 09/28/18 11:15 Macrocytosis Not Reportable 09/28/18 11:15 Spherocytes Not Reportable 09/28/18 11:15 Pappenheimer Bodies Not Reportable 09/28/18 11:15 Sickle Cells Not Reportable 09/28/18 11:15 Target Cells Not Reportable 09/28/18 11:15 Tear Drop Cells Not Reportable 09/28/18 11:15 Ovalocytes Few 09/28/18 11:15 Helmet Cells Not Reportable 09/28/18 11:15 [place] Bodies Not Reportable 09/28/18 11:15 Metcalf Rings Not Reportable 09/28/18 11:15 [place] Cells Not Reportable 09/28/18 11:15 Bite Cells Not Reportable 09/28/18 11:15 Crenated Cell Not Reportable 09/28/18 11:15 Elliptocytes Not Reportable 09/28/18 11:15 Acanthocytes (Spur) Not Reportable 09/28/18 11:15 Rouleaux Not Reportable 09/28/18 11:15 Hemoglobin C Crystals Not Reportable 09/28/18 11:15 Schistocytes Not Reportable 09/28/18 11:15 Malaria parasites Not Reportable 09/28/18 11:15 Salo Bodies Not Reportable 09/28/18 11:15 Hem Pathologist Commnt No 09/28/18 11:15 PT 15.0 Sec. (12.2-14.9) H 09/25/18 08:00 INR 1.14 (0.87-1.13) H 09/25/18 08:00 APTT 36.5 Sec. (24.2-36.6) 09/25/18 08:00 Sodium 141 mmol/L (137-145) 09/28/18 11:15 Potassium 3.3 mmol/L (3.6-5.0) L 09/28/18 11:15 Chloride 103.8 mmol/L (98-107) 09/28/18 11:15 Carbon Dioxide 23 mmol/L (22-30) 09/28/18 11:15 Anion Gap 18 mmol/L 09/28/18 11:15 BUN 9 mg/dL (9-20) 09/28/18 11:15 Creatinine 0.9 mg/dL (0.8-1.5) 09/28/18 11:15 Estimated GFR > 60 ml/min 09/28/18 11:15 BUN/Creatinine Ratio 10 % 09/28/18 11:15 Glucose 113 mg/dL (75-100) H 09/28/18 11:15 Lactic Acid 2.60 mmol/L (0.7-2.0) H* 09/28/18 11:15 Calcium 8.6 mg/dL (8.4-10.2) 09/28/18 11:15 Magnesium 1.90 mg/dL (1.7-2.3) 09/25/18 08:00 Total Bilirubin 1.40 mg/dL (0.1-1.2) H 09/25/18 07:03 AST 25 units/L (5-40) 09/25/18 07:03 ALT 17 units/L (7-56) 09/25/18 07:03 Alkaline Phosphatase 89 units/L (35-129) 09/25/18 07:03 NT-Pro-B Natriuret Pep 160.5 pg/mL (0-900) 09/25/18 08:00 Total Protein 8.1 g/dL (6.3-8.2) 09/25/18 07:03 Albumin 3.8 g/dL (3.9-5) L 09/25/18 07:03 Albumin/Globulin Ratio 0.9 % 09/25/18 07:03 Lipase 13 units/L (13-60) 09/25/18 07:03 Urine Color Tania (Yellow) 09/25/18 07:25 Urine Turbidity Clear (Clear) 09/25/18 07:25 Urine pH 5.0 (5.0-7.0) 09/25/18 07:25 Ur Specific [place] 1.014 (1.003-1.030) 09/25/18 07:25 Urine Protein 30 mg/dl mg/dL (Negative) 09/25/18 07:25 Urine Glucose (UA) Neg mg/dL (Negative) 09/25/18 07:25 Urine Ketones Neg mg/dL (Negative) 09/25/18 07:25 Urine Blood Mod (Negative) 09/25/18 07:25 Urine Nitrite Neg (Negative) 09/25/18 07:25 Urine Bilirubin Neg (Negative) 09/25/18 07:25 Urine Urobilinogen 4.0 mg/dL (<2.0) 09/25/18 07:25 Ur Leukocyte Esterase Neg (Negative) 09/25/18 07:25 Urine WBC (Auto) 7.0 /HPF (0.0-6.0) H 09/25/18 07:25 Urine RBC (Auto) 2.0 /HPF (0.0-6.0) 09/25/18 07:25 U Epithel Cells (Auto) < 1.0 /HPF (0-13.0) 09/25/18 07:25 Blood Type O POSITIVE 09/28/18 14:20 Antibody Screen Negative 09/28/18 14:20 Lactic acidosis
[2018-09-28] MEDS ORDERED: NACL 0.9% IR ONE (17:30)
[2018-09-28] MEDS: SUBLIMAZE IV PRN ×3 (18:34→19:42)
--- NOTE | 2018-09-28 18:39 | Operative Report ---
PREOPERATIVE DIAGNOSIS: Rule out diverticulitis with perforation, abscess formation. POSTOPERATIVE DIAGNOSIS: Rule out diverticulitis with perforation, abscess formation. PROCEDURE: 1. Emergency exploratory laparotomy. 2. Sigmoid colectomy. 3. End colostomy. 4. Vega pouch. 5. Partial omentectomy. 6. Extended mobilization of the colon past the splenic flexure. SURGEON: Nikos Antunez MD CHARGE AUDITOR: Dr. Lam. ANESTHESIA: General. ESTIMATED BLOOD LOSS: 300 mL. PROCEDURE: Triple lumen the wall drain, Sump drain was left draining the left colonic gutter and pelvis. COMPLICATIONS: No complications. PROCEDURE IN THE DETAIL: The patient was taken to the operating room, prepped and draped in usual sterile fashion. Midline incision was made and abdomen entered. Upon entrance into the abdomen, a large phlegmon around the sigmoid colon was noted. Perforation was also seen. Some purulence was noted. Aerobic and anaerobic cultures were taken. OUSMANE was used to transect the colon distal to the area of pathology. The left colon was then mobilized past the splenic flexure. The entire colon was mobilized, past the splenic flexure and again carefully inspected. The area proximal to the pathology was then also transected with a OUSMANE. The mesentery of the perforated site was then secured with the Harmonic scalpel. The entire area was irrigated copiously and dried. Checked for hemostasis and noted to be dry. Then, packing the left colonic gutter and pelvis. The spleen and stomach were inspected and no iatrogenic injuries noted. The colon was then brought out through a colostomy site that had to be brought up in the left upper quadrant of the abdomen. The colon was secured to the fascia with interrupted 3-0 Vicryl sutures. Internally the colon was also sutured to the peritoneum with interrupted 2-0 Vicryl suture. NG tube was then palpated and noted to be within the gastric lumen. The entire abdomen then copiously irrigated and suctioned dry. Checked for hemostasis and noted to be dry. A portion of the omentum were noted to be somewhat necrotic and adhered with a fibrinous infected exudate. A partial omentectomy was then performed. Once again, the entire abdomen was copiously irrigated including the subphrenic space as well as a colonic gutters and pelvis until the aspirate was crystal clear. A triple lumen sump drain was then brought out through the separate stab incision and placed to drain the left colonic gutter and pelvis. The drain was secured to the skin with 3-0 silk sutures. Fascia was closed with interrupted #1 Vicryl suture. Subcutaneous tissues irrigated. Skin closed loosely with minnie and packed with Telfa mason soaked with Betadine. The incision was then covered with a towel. A colostomy was then matured using a Malia type technique closing the skin to the lower portion of the serosa by the fascia and then up on the mucosa on top just to prevent any retraction as the patient is quite obese and there was significant inflammation around the colon as well as mesentery. After completion of maturing the colostomy, small finger with K-wire was then placed through the lumen and noted to be intact. The patient tolerated procedure well, but remains in guarded condition secondary to sepsis and peritonitis. JOB# [id number] JULIAN/LEATHA
[2018-09-28] MEDS ORDERED: NORMODYNE IV ONE (19:35)
--- NOTE | 2018-09-28 20:22 | Post Anesthesia Evaluation ---
- Post Anesthesia Evaluation Patient Participated: Yes Airway Patent: Yes Stable Respiratory Function: Yes Nausea/Vomiting: No Temp > 96.8F: Yes Pain Manageable: Yes Adequeate Hydration: Yes Anesthesia Complications: No Block Receding Appropriately: Not Applicable
[2018-09-28] MEDS: PEPCID IV SCH (21:38)
[2018-09-29] MEDS: DILAUDID IV PRN ×7 (00:06→21:16)
[2018-09-29 06:14] LABS: Basophils % (Auto) 0.3 % (0.0-1.8); Hematocrit 40.9 % (35.5-45.6); Hemoglobin 13.4 gm/dl (11.8-15.2); Lymphocytes # (Auto) 0.4 K/mm3 (1.2-5.4); Lymphocytes % (Auto) 2.6 % (13.4-35.0); Mean Corpuscular HGB Conc 33 % (32-34); Mean Corpuscular Volume 85 fl (84-94); Monocytes # (Auto) 1.2 K/mm3 (0.0-0.8); Monocytes % (Auto) 7.6 % (0.0-7.3); Platelet Count 234 K/mm3 (140-440); Red Blood Count 4.83 M/mm3 (3.65-5.03); Red Cell Distribution Width 15.8 % (13.2-15.2)
[2018-09-29 06:30] LABS: Alanine Aminotransferase 12 units/L (7-56); Albumin 2.6 g/dL (3.9-5); BUN/Creatinine Ratio 8; Blood Urea Nitrogen 9 mg/dL (9-20); Calcium 7.7 mg/dL (8.4-10.2); Hemolysis Index 5
[2018-09-29] MEDS: FLAGYL 500 MG/100 ML 500 MG/100 ML BAG IV SCH (08:34)
[2018-09-29] MEDS: ROCEPHIN/NS 2 GM/100 ML 2 GM/100 ML BAG IV SCH (09:45)
[2018-09-29] MEDS: PEPCID IV SCH ×2 (09:46→21:19)
--- NOTE | 2018-09-29 11:20 | Progress Note ---
Assessment and Plan Cultures: blood culture: no growth 09/28/2018 OR culture: GNR A/P: 58-year-old male with tobacco abuse admitted with: #1 Sepsis secondary to intra-abdominal infection: diverticulitis with microperforation and associated intra-abdominal abscess: now s/p surgery on 09/28/2018. Had ex-lap, sigmoid colectomy with end colostomy creation. Given high fevers, will expand abx coverage to high dose Zosyn. #2 RAMANDEEP: resolved. Monitor. Recs: discontinued Ceftriaxone and Flagyl started high dose IV Zosyn 4.5 gm q6 hrs f/u OR culture results and clinical course Will follow. Please call with questions. Gabo Umanzor MD [facility] C: [phone] O: [phone] F: [phone] Subjective Date of service: 09/29/18 Principal diagnosis: Acute diverticulitis and sepsis Interval history: Spiking fevers. Went to OR yesterday, underwent ex-lap and colostomy. Complaining of abdominal pain. Moved to [facility] post surgery. Objective - Exam Narrative Exam: Physical Exam: Constitutional: Alert, cooperative. No acute distress Head, Ears, Nose: Normocephalic, atraumatic. External ears, nose normal Eyes: Conjunctivae/corneas clear. No icterus. No ptosis. Neck: Supple, no meningeal signs Oral: dentition few missing teeth, no thrush Cardiovascular: S1, S2 normal. Respiratory: Good air entry, clear to auscultation bilaterally GI: tenderness, colostomy +, drain + bowel sounds absent Musculoskeletal: No pedal edema, no cyanosis. Skin: No rash or abscess Hem/Lymphatic: No palpable cervical or supraclavicular nodes. No lymphangitis Psych: Mood ok. Affect normal Neurological: Awake, alert, oriented. No gross abnormality - Constitutional Vitals: Vital Signs Temp Pulse Resp BP Pulse Ox 99.0 F 118 H 17 112/77 95 09/28/18 20:15 09/29/18 09:00 09/29/18 09:00 09/29/18 09:00 09/29/18 09:58 Temperature -Last 24 Hours Temperature 99.0 F Temperature 97.5 F Temperature 103 F Temperature 103 F Temperature 100.1 F Temperature 98.4 F - Labs CBC & Chem 7: 09/29/18 05:42 09/29/18 05:42 Labs: Abnormal lab results 09/28/18 09/28/18 09/28/18 Range/Units 11:15 11:15 11:15 WBC (4.5-11.0) K/mm3 RDW (13.2-15.2) % Plt Count 139 L (140-440) K/mm3 Lymph % (Auto) (13.4-35.0) % [place] % (Auto) (0.0-7.3) % Lymph # (1.2-5.4) K/mm3 [place] # (0.0-0.8) K/mm3 Seg Neutrophils % (40.0-70.0) % Seg Neuts % (Manual) 92.0 H (40.0-70.0) % Lymphocytes % (Manual) 5.0 L (13.4-35.0) % Seg Neutrophils # (1.8-7.7) K/mm3 Seg Neutrophils # Man 8.0 H (1.8-7.7) K/mm3 Lymphocytes # (Manual) 0.4 L (1.2-5.4) K/mm3 Potassium 3.3 L (3.6-5.0) mmol/L Glucose 113 H (75-100) mg/dL Lactic Acid 2.60 H* (0.7-2.0) mmol/L Calcium (8.4-10.2) mg/dL Total Bilirubin (0.1-1.2) mg/dL Total Protein (6.3-8.2) g/dL Albumin (3.9-5) g/dL 09/29/18 09/29/18 Range/Units 05:42 05:42 WBC 16.2 H (4.5-11.0) K/mm3 RDW 15.8 H (13.2-15.2) % Plt Count (140-440) K/mm3 Lymph % (Auto) 2.6 L (13.4-35.0) % [place] % (Auto) 7.6 H (0.0-7.3) % Lymph # 0.4 L (1.2-5.4) K/mm3 [place] # 1.2 H (0.0-0.8) K/mm3 Seg Neutrophils % 89.5 H (40.0-70.0) % Seg Neuts % (Manual) (40.0-70.0) % Lymphocytes % (Manual) (13.4-35.0) % Seg Neutrophils # 14.6 H (1.8-7.7) K/mm3 Seg Neutrophils # Man (1.8-7.7) K/mm3 Lymphocytes # (Manual) (1.2-5.4) K/mm3 Potassium (3.6-5.0) mmol/L Glucose 127 H (75-100) mg/dL Lactic Acid (0.7-2.0) mmol/L Calcium 7.7 L (8.4-10.2) mg/dL Total Bilirubin 2.50 H (0.1-1.2) mg/dL Total Protein 6.2 L D (6.3-8.2) g/dL Albumin 2.6 L (3.9-5) g/dL - Imaging and cardiology CT scan - abdomen: report reviewed, image reviewed (09/28/2018 showed increased free intra-peritoneal air.)
[2018-09-29] MEDS: D5W/0.45% NACL/KCL 30 MEQ 30 MEQ/1,000 ML BAG IV SCH (12:54)
[2018-09-29] MEDS: ZOSYN/NS 4.5GM/100ML 4.5 GM/100 ML VIAL IV SCH ×3 (12:55→23:53)
[2018-09-29] MEDS ORDERED: CHLORASEPTIC MM PRN (13:01)
--- NOTE | 2018-09-29 13:01 | Progress Note ---
Assessment and Plan POD #1 Pt sitting up in bed. resting comfortably. no specific compl Abd soft, dressing dry, ostomy pink surgically stable continue present care Selected Entries 09/28/18 09/29/18 09/29/18 07:08 05:00 05:10 Temperature 98.2 F Pulse Rate 88 115 H Respiratory 18 15 Rate Blood Pressure 142/89 118/56 Laboratory Tests 09/29/18 09/29/18 05:42 05:42 WBC 16.2 H Hgb 13.4 Hct 40.9 Sodium 141 Potassium 4.1 D Chloride 105.9 Carbon Dioxide 24 Anion Gap 15 Glucose 127 H Total Bilirubin 2.50 H AST 17 ALT 12 Alkaline Phosphatase 59 Objective Vital Signs - 12hr 09/29/18 09/29/18 09/29/18 01:10 01:20 01:30 Pulse Rate 116 H 114 H 114 H Pulse Rate [ From Monitor] Respiratory 20 18 13 Rate Blood Pressure 122/81 122/81 122/81 O2 Sat by Pulse 99 99 99 Oximetry 09/29/18 09/29/18 09/29/18 01:40 01:50 02:00 Pulse Rate 113 H 114 H 113 H Pulse Rate [ 114 H From Monitor] Respiratory 12 13 13 Rate Blood Pressure 122/81 122/81 124/77 O2 Sat by Pulse 98 98 98 Oximetry 09/29/18 09/29/18 09/29/18 02:10 02:20 02:30 Pulse Rate 114 H 114 H 116 H Pulse Rate [ From Monitor] Respiratory 11 L 13 16 Rate Blood Pressure 124/77 122/81 122/81 O2 Sat by Pulse 99 98 99 Oximetry 09/29/18 09/29/18 09/29/18 02:40 02:50 03:00 Pulse Rate 115 H 113 H 113 H Pulse Rate [ From Monitor] Respiratory 12 16 24 Rate Blood Pressure 122/81 124/77 124/77 O2 Sat by Pulse 98 99 98 Oximetry 09/29/18 09/29/18 09/29/18 03:10 03:20 03:30 Pulse Rate 112 H 115 H 119 H Pulse Rate [ From Monitor] Respiratory 19 24 13 Rate Blood Pressure 141/81 141/81 141/81 O2 Sat by Pulse 99 99 97 Oximetry 09/29/18 09/29/18 09/29/18 03:40 03:50 04:00 Pulse Rate 115 H 114 H 117 H Pulse Rate [ From Monitor] Respiratory 22 13 22 Rate Blood Pressure 141/81 141/81 139/79 O2 Sat by Pulse 99 98 98 Oximetry 09/29/18 09/29/18 09/29/18 04:10 04:20 04:30 Pulse Rate 112 H 113 H 114 H Pulse Rate [ From Monitor] Respiratory 15 10 L 9 L Rate Blood Pressure 139/79 139/79 139/79 O2 Sat by Pulse 98 99 97 Oximetry 09/29/18 09/29/18 09/29/18 04:40 04:50 05:00 Pulse Rate 118 H 113 H 115 H Pulse Rate [ From Monitor] Respiratory 27 H 17 14 Rate Blood Pressure 139/79 139/79 118/56 O2 Sat by Pulse 98 97 99 Oximetry 09/29/18 09/29/18 09/29/18 05:10 05:20 05:30 Pulse Rate 115 H 115 H 114 H Pulse Rate [ From Monitor] Respiratory 15 13 12 Rate Blood Pressure 118/56 118/56 118/56 O2 Sat by Pulse 98 92 95 Oximetry 09/29/18 09/29/18 09/29/18 05:40 05:50 06:00 Pulse Rate 114 H 116 H 116 H Pulse Rate [ From Monitor] Respiratory 11 L 14 12 Rate Blood Pressure 118/56 118/56 126/67 O2 Sat by Pulse 91 95 95 Oximetry 09/29/18 09/29/18 09/29/18 06:10 06:20 06:30 Pulse Rate 113 H 114 H 114 H Pulse Rate [ From Monitor] Respiratory 10 L 8 L 12 Rate Blood Pressure 126/67 126/67 126/67 O2 Sat by Pulse 95 92 96 Oximetry 09/29/18 09/29/18 09/29/18 06:40 06:50 07:00 Pulse Rate 116 H 115 H 117 H Pulse Rate [ From Monitor] Respiratory 13 12 12 Rate Blood Pressure 126/67 126/67 122/72 O2 Sat by Pulse 97 96 100 Oximetry 09/29/18 09/29/18 09/29/18 07:10 07:20 07:30 Pulse Rate 118 H 114 H 116 H Pulse Rate [ From Monitor] Respiratory 13 17 14 Rate Blood Pressure 122/72 122/72 122/72 O2 Sat by Pulse 97 93 95 Oximetry 09/29/18 09/29/18 09/29/18 07:40 07:50 08:00 Pulse Rate 115 H 115 H 120 H Pulse Rate [ From Monitor] Respiratory 22 12 16 Rate Blood Pressure 122/72 122/72 112/77 O2 Sat by Pulse 91 94 96 Oximetry 09/29/18 09/29/18 09/29/18 08:10 08:20 08:30 Pulse Rate 114 H 119 H 117 H Pulse Rate [ From Monitor] Respiratory 16 13 13 Rate Blood Pressure 112/77 112/77 112/77 O2 Sat by Pulse 95 95 92 Oximetry 09/29/18 09/29/18 09/29/18 08:40 08:50 09:00 Pulse Rate 118 H 117 H 118 H Pulse Rate [ From Monitor] Respiratory 14 16 17 Rate Blood Pressure 112/77 112/77 112/77 O2 Sat by Pulse 96 95 94 Oximetry 09/29/18 09:58 Pulse Rate Pulse Rate [ From Monitor] Respiratory Rate Blood Pressure O2 Sat by Pulse 95 Oximetry - Labs 09/29/18 05:42 09/29/18 05:42 Diabetes panel 09/29/18 Range/Units 05:42 Sodium 141 (137-145) mmol/L Potassium 4.1 D (3.6-5.0) mmol/L Chloride 105.9 (98-107) mmol/L Carbon Dioxide 24 (22-30) mmol/L BUN 9 (9-20) mg/dL Creatinine 1.1 (0.8-1.5) mg/dL Glucose 127 H (75-100) mg/dL Calcium 7.7 L (8.4-10.2) mg/dL AST 17 (5-40) units/L ALT 12 (7-56) units/L Alkaline Phosphatase 59 (35-129) units/L Total Protein 6.2 L D (6.3-8.2) g/dL Albumin 2.6 L (3.9-5) g/dL Calcium panel 09/29/18 Range/Units 05:42 Calcium 7.7 L (8.4-10.2) mg/dL Albumin 2.6 L (3.9-5) g/dL Pituitary panel 09/29/18 Range/Units 05:42 Sodium 141 (137-145) mmol/L Potassium 4.1 D (3.6-5.0) mmol/L Chloride 105.9 (98-107) mmol/L Carbon Dioxide 24 (22-30) mmol/L BUN 9 (9-20) mg/dL Creatinine 1.1 (0.8-1.5) mg/dL Glucose 127 H (75-100) mg/dL Calcium 7.7 L (8.4-10.2) mg/dL Adrenal panel 09/29/18 Range/Units 05:42 Sodium 141 (137-145) mmol/L Potassium 4.1 D (3.6-5.0) mmol/L Chloride 105.9 (98-107) mmol/L Carbon Dioxide 24 (22-30) mmol/L BUN 9 (9-20) mg/dL Creatinine 1.1 (0.8-1.5) mg/dL Glucose 127 H (75-100) mg/dL Calcium 7.7 L (8.4-10.2) mg/dL Total Bilirubin 2.50 H (0.1-1.2) mg/dL AST 17 (5-40) units/L ALT 12 (7-56) units/L Alkaline Phosphatase 59 (35-129) units/L Total Protein 6.2 L D (6.3-8.2) g/dL Albumin 2.6 L (3.9-5) g/dL
--- NOTE | 2018-09-29 15:12 | Progress Note ---
Assessment and Plan Assessment and plan: Sigmoid diverticulitis with perforation, yesterday patient has worsening perforation evidenced by abdominal pain, guarding and rigidity Patient was taken to or and laparotomy with colostomy placement was done - Patient's nothing by mouth - IV fluids - IV antibiotics - Surgery and ID is on board Disposition - Continue inpatient care History Interval history: Patient was seen and evaluated this morning, patient was not in pain or distress. Hospitalist Physical - Physical exam Narrative exam: Patient was in distress from pain. The patient appeared well nourished and normally developed. Vital signs as documented. Head exam is unremarkable. No scleral icterus . Neck is without jugular venous distension, thyromegaly, or carotid bruits. Lungs are clear to auscultation. Cardiac exam reveals regular rate and Rhythm. First and second heart sounds normal. No murmurs, rubs or gallops. Abdominal exam status post laparotomy and ostomy tube in place. Extremities are nonedematous and both femoral and pedal pulses are normal. 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 No focal weakness. - Constitutional Vitals: Temp Pulse Resp BP Pulse Ox 99.0 F 118 H 10 L 92/70 91 09/28/18 20:15 09/29/18 14:40 09/29/18 14:40 09/29/18 14:40 09/29/18 14:40 General appearance: Present: no acute distress, well-nourished Results - Labs CBC & Chem 7: 09/29/18 05:42 09/29/18 05:42 Labs: Laboratory Last Values WBC 16.2 K/mm3 (4.5-11.0) H 09/29/18 05:42 RBC 4.83 M/mm3 (3.65-5.03) 09/29/18 05:42 Hgb 13.4 gm/dl (11.8-15.2) 09/29/18 05:42 Hct 40.9 % (35.5-45.6) 09/29/18 05:42 MCV 85 fl (84-94) 09/29/18 05:42 MCH 28 pg (28-32) 09/29/18 05:42 MCHC 33 % (32-34) 09/29/18 05:42 RDW 15.8 % (13.2-15.2) H 09/29/18 05:42 Plt Count 234 K/mm3 (140-440) 09/29/18 05:42 Lymph % (Auto) 2.6 % (13.4-35.0) L 09/29/18 05:42 [place] % (Auto) 7.6 % (0.0-7.3) H 09/29/18 05:42 Eos % (Auto) 0.0 % (0.0-4.3) 09/29/18 05:42 Baso % (Auto) 0.3 % (0.0-1.8) 09/29/18 05:42 Lymph # 0.4 K/mm3 (1.2-5.4) L 09/29/18 05:42 [place] # 1.2 K/mm3 (0.0-0.8) H 09/29/18 05:42 Eos # 0.0 K/mm3 (0.0-0.4) 09/29/18 05:42 Baso # 0.0 K/mm3 (0.0-0.1) 09/29/18 05:42 Add Manual Diff Complete 09/28/18 11:15 Total Counted 100 09/28/18 11:15 Seg Neutrophils % 89.5 % (40.0-70.0) H 09/29/18 05:42 Seg Neuts % (Manual) 92.0 % (40.0-70.0) H 09/28/18 11:15 Band Neutrophils % 0 % 09/28/18 11:15 Lymphocytes % (Manual) 5.0 % (13.4-35.0) L 09/28/18 11:15 Reactive Lymphs % (Man) 0 % 09/28/18 11:15 Monocytes % (Manual) 3.0 % (0.0-7.3) 09/28/18 11:15 Eosinophils % (Manual) 0 % (0.0-4.3) 09/28/18 11:15 Basophils % (Manual) 0 % (0.0-1.8) 09/28/18 11:15 Metamyelocytes % 0 % 09/28/18 11:15 Myelocytes % 0 % 09/28/18 11:15 Promyelocytes % 0 % 09/28/18 11:15 Blast Cells % 0 % 09/28/18 11:15 Nucleated RBC % Not Reportable 09/28/18 11:15 Seg Neutrophils # 14.6 K/mm3 (1.8-7.7) H 09/29/18 05:42 Seg Neutrophils # Man 8.0 K/mm3 (1.8-7.7) H 09/28/18 11:15 Band Neutrophils # 0.0 K/mm3 09/28/18 11:15 Lymphocytes # (Manual) 0.4 K/mm3 (1.2-5.4) L 09/28/18 11:15 Abs React Lymphs (Man) 0.0 K/mm3 09/28/18 11:15 Monocytes # (Manual) 0.3 K/mm3 (0.0-0.8) 09/28/18 11:15 Eosinophils # (Manual) 0.0 K/mm3 (0.0-0.4) 09/28/18 11:15 Basophils # (Manual) 0.0 K/mm3 (0.0-0.1) 09/28/18 11:15 Metamyelocytes # 0.0 K/mm3 09/28/18 11:15 Myelocytes # 0.0 K/mm3 09/28/18 11:15 Promyelocytes # 0.0 K/mm3 09/28/18 11:15 Blast Cells # 0.0 K/mm3 09/28/18 11:15 WBC Morphology Not Reportable 09/28/18 11:15 Hypersegmented Neuts Not Reportable 09/28/18 11:15 Hyposegmented Neuts Not Reportable 09/28/18 11:15 Hypogranular Neuts Not Reportable 09/28/18 11:15 Smudge Cells Not Reportable 09/28/18 11:15 Toxic Granulation Not Reportable 09/28/18 11:15 Toxic Vacuolation Not Reportable 09/28/18 11:15 Dohle Bodies Not Reportable 09/28/18 11:15 Pelger-Huet Anomaly Not Reportable 09/28/18 11:15 Nkechi Rods Not Reportable 09/28/18 11:15 Platelet Estimate Consistent w auto 09/28/18 11:15 Clumped Platelets Not Reportable 09/28/18 11:15 Plt Clumps, EDTA Not Reportable 09/28/18 11:15 Large Platelets Not Reportable 09/28/18 11:15 Giant Platelets Not Reportable 09/28/18 11:15 Platelet Satelliting Not Reportable 09/28/18 11:15 Plt Morphology Comment Not Reportable 09/28/18 11:15 RBC Morphology Not Reportable 09/28/18 11:15 Dimorphic RBCs Not Reportable 09/28/18 11:15 Polychromasia Not Reportable 09/28/18 11:15 Hypochromasia Not Reportable 09/28/18 11:15 Poikilocytosis 1+ 09/28/18 11:15 Anisocytosis 1+ 09/28/18 11:15 Microcytosis Not Reportable 09/28/18 11:15 Macrocytosis Not Reportable 09/28/18 11:15 Spherocytes Not Reportable 09/28/18 11:15 Pappenheimer Bodies Not Reportable 09/28/18 11:15 Sickle Cells Not Reportable 09/28/18 11:15 Target Cells Not Reportable 09/28/18 11:15 Tear Drop Cells Not Reportable 09/28/18 11:15 Ovalocytes Few 09/28/18 11:15 Helmet Cells Not Reportable 09/28/18 11:15 Garcia-[place] Bodies Not Reportable 09/28/18 11:15 [place] Rings Not Reportable 09/28/18 11:15 Kati Cells Not Reportable 09/28/18 11:15 Bite Cells Not Reportable 09/28/18 11:15 Crenated Cell Not Reportable 09/28/18 11:15 Elliptocytes Not Reportable 09/28/18 11:15 Acanthocytes (Spur) Not Reportable 09/28/18 11:15 Rouleaux Not Reportable 09/28/18 11:15 Hemoglobin C Crystals Not Reportable 09/28/18 11:15 Schistocytes Not Reportable 09/28/18 11:15 Malaria parasites Not Reportable 09/28/18 11:15 Salo Bodies Not Reportable 09/28/18 11:15 Hem Pathologist Commnt No 09/28/18 11:15 PT 15.0 Sec. (12.2-14.9) H 09/25/18 08:00 INR 1.14 (0.87-1.13) H 09/25/18 08:00 APTT 36.5 Sec. (24.2-36.6) 09/25/18 08:00 Sodium 141 mmol/L (137-145) 09/29/18 05:42 Potassium 4.1 mmol/L (3.6-5.0) D 09/29/18 05:42 Chloride 105.9 mmol/L (98-107) 09/29/18 05:42 Carbon Dioxide 24 mmol/L (22-30) 09/29/18 05:42 Anion Gap 15 mmol/L 09/29/18 05:42 BUN 9 mg/dL (9-20) 09/29/18 05:42 Creatinine 1.1 mg/dL (0.8-1.5) 09/29/18 05:42 Estimated GFR > 60 ml/min 09/29/18 05:42 BUN/Creatinine Ratio 8 % 09/29/18 05:42 Glucose 127 mg/dL (75-100) H 09/29/18 05:42 Lactic Acid 1.10 mmol/L (0.7-2.0) 09/28/18 21:44 Calcium 7.7 mg/dL (8.4-10.2) L 09/29/18 05:42 Magnesium 1.90 mg/dL (1.7-2.3) 09/25/18 08:00 Total Bilirubin 2.50 mg/dL (0.1-1.2) H 09/29/18 05:42 AST 17 units/L (5-40) 09/29/18 05:42 ALT 12 units/L (7-56) 09/29/18 05:42 Alkaline Phosphatase 59 units/L (35-129) 09/29/18 05:42 NT-Pro-B Natriuret Pep 160.5 pg/mL (0-900) 09/25/18 08:00 Total Protein 6.2 g/dL (6.3-8.2) L D 09/29/18 05:42 Albumin 2.6 g/dL (3.9-5) L 09/29/18 05:42 Albumin/Globulin Ratio 0.7 % 09/29/18 05:42 Lipase 13 units/L (13-60) 09/25/18 07:03 Urine Color Tania (Yellow) 09/25/18 07:25 Urine Turbidity Clear (Clear) 09/25/18 07:25 Urine pH 5.0 (5.0-7.0) 09/25/18 07:25 Ur Specific [place] 1.014 (1.003-1.030) 09/25/18 07:25 Urine Protein 30 mg/dl mg/dL (Negative) 09/25/18 07:25 Urine Glucose (UA) Neg mg/dL (Negative) 09/25/18 07:25 Urine Ketones Neg mg/dL (Negative) 09/25/18 07:25 Urine Blood Mod (Negative) 09/25/18 07:25 Urine Nitrite Neg (Negative) 09/25/18 07:25 Urine Bilirubin Neg (Negative) 09/25/18 07:25 Urine Urobilinogen 4.0 mg/dL (<2.0) 09/25/18 07:25 Ur Leukocyte Esterase Neg (Negative) 09/25/18 07:25 Urine WBC (Auto) 7.0 /HPF (0.0-6.0) H 09/25/18 07:25 Urine RBC (Auto) 2.0 /HPF (0.0-6.0) 09/25/18 07:25 U Epithel Cells (Auto) < 1.0 /HPF (0-13.0) 09/25/18 07:25 Blood Type O POSITIVE 09/28/18 14:20 Antibody Screen Negative 09/28/18 14:20
--- NOTE | 2018-09-29 22:31 | XRay Report ---
FINAL REPORT PROCEDURE: XR ABDOMEN 1V AP TECHNIQUE: Two views of the abdomen HISTORY: nasal gastric tube placement COMPARISON: No prior studies are available for comparison. FINDINGS: Feeding tube extends to the stomach in the left upper quadrant. There is no dilated bowel. There is c ontrast in the colon. There is skin minnie. There is postoperative change of the spine. IMPRESSION: Feeding tube extends to the stomach.
[2018-09-30] MEDS: DILAUDID IV PRN ×5 (02:36→21:46)
[2018-09-30 05:01] LABS: Basophils # (Auto) 0.1 K/mm3 (0.0-0.1); Basophils % (Auto) 0.7 % (0.0-1.8); Eosinophils # (Auto) 0.2 K/mm3 (0.0-0.4); Eosinophils % (Auto) 1.2 % (0.0-4.3); Hematocrit 34.8 % (35.5-45.6); Hemoglobin 11.5 gm/dl (11.8-15.2); Lymphocytes # (Auto) 0.6 K/mm3 (1.2-5.4); Lymphocytes % (Auto) 3.7 % (13.4-35.0); Mean Corpuscular HGB Conc 33 % (32-34); Mean Corpuscular Volume 85 fl (84-94); Monocytes # (Auto) 1.4 K/mm3 (0.0-0.8); Monocytes % (Auto) 8.7 % (0.0-7.3); Platelet Count 184 K/mm3 (140-440); Red Blood Count 4.09 M/mm3 (3.65-5.03)
[2018-09-30] MEDS: ZOSYN/NS 4.5GM/100ML 4.5 GM/100 ML VIAL IV SCH ×4 (06:23→23:11)
[2018-09-30 06:25] LABS: Alanine Aminotransferase 15 units/L (7-56); Albumin 2.5 g/dL (3.9-5); BUN/Creatinine Ratio 9; Blood Urea Nitrogen 9 mg/dL (9-20); Calcium 7.9 mg/dL (8.4-10.2); Hemolysis Index 31
[2018-09-30] MEDS: D5W/0.45% NACL/KCL 30 MEQ 30 MEQ/1,000 ML BAG IV SCH ×2 (08:47→18:43)
[2018-09-30] MEDS: PEPCID IV SCH ×2 (10:10→23:14)
--- NOTE | 2018-09-30 11:05 | Progress Note ---
Assessment and Plan Cultures: blood culture: no growth 09/28/2018 OR culture: GNR A/P: 58-year-old male with tobacco abuse admitted with: #1 Sepsis secondary to intra-abdominal infection: diverticulitis with microperforation and associated intra-abdominal abscess: now s/p surgery on 09/28/2018. Had ex-lap, sigmoid colectomy with end colostomy creation. Given high fevers, will expand abx coverage to high dose Zosyn. #2 RMAANDEEP: resolved. Monitor. Recs: continue higher dose IV Zosyn 4.5 gm q6 hrs f/u OR culture results and clinical course Will follow. Please call with questions. Gabo Umanzor MD [facility] C: [phone] O: [phone] F: [phone] Subjective Date of service: 09/30/18 Principal diagnosis: Acute diverticulitis and sepsis Interval history: Denies any fever. Abdominal pain well controlled. Tolerating current abx, no rash. Objective - Exam Narrative Exam: Physical Exam: Constitutional: Alert, cooperative. No acute distress Head, Ears, Nose: Normocephalic, atraumatic. External ears, nose normal Eyes: Conjunctivae/corneas clear. No icterus. No ptosis. Neck: Supple, no meningeal signs Oral: dentition few missing teeth, no thrush Cardiovascular: S1, S2 normal. Respiratory: Good air entry, clear to auscultation bilaterally GI: mild distension, tenderness, colostomy +, drain + bowel sounds hypoactive Musculoskeletal: No pedal edema, no cyanosis. Skin: No rash or abscess Hem/Lymphatic: No palpable cervical or supraclavicular nodes. No lymphangitis Psych: Mood ok. Affect normal Neurological: Awake, alert, oriented. No gross abnormality - Constitutional Vitals: Vital Signs Temp Pulse Resp BP Pulse Ox 99.0 F 111 H 15 119/62 95 09/28/18 20:15 09/30/18 09:40 09/30/18 09:40 09/30/18 09:40 09/30/18 09:40 - Labs CBC & Chem 7: 09/30/18 04:28 09/30/18 04:28 Labs: Abnormal lab results 09/30/18 09/30/18 Range/Units 04:28 04:28 WBC 15.8 H (4.5-11.0) K/mm3 Hgb 11.5 L (11.8-15.2) gm/dl Hct 34.8 L D (35.5-45.6) % RDW 16.0 H (13.2-15.2) % Lymph % (Auto) 3.7 L (13.4-35.0) % [place] % (Auto) 8.7 H (0.0-7.3) % Lymph # 0.6 L (1.2-5.4) K/mm3 [place] # 1.4 H (0.0-0.8) K/mm3 Seg Neutrophils % 85.7 H (40.0-70.0) % Seg Neutrophils # 13.5 H (1.8-7.7) K/mm3 Chloride 108.1 H (98-107) mmol/L Glucose 140 H (75-100) mg/dL Calcium 7.9 L (8.4-10.2) mg/dL Total Bilirubin 3.50 H (0.1-1.2) mg/dL Albumin 2.5 L (3.9-5) g/dL
--- NOTE | 2018-09-30 12:21 | Progress Note ---
Assessment and Plan POD # 2 Pt feeling well. no compl Abd soft. non tender surgically stable monitor h/h may transfer to surgical floor from our perspective Selected Entries 09/30/18 00:50 Pulse Rate 122 H Respiratory 19 Rate Blood Pressure 114/68 Laboratory Tests 09/29/18 09/30/18 09/30/18 05:42 04:28 04:28 WBC 16.2 H 15.8 H Hgb 13.4 11.5 L Hct 40.9 34.8 L D Sodium 145 Potassium 4.5 Chloride 108.1 H BUN 9 Creatinine 1.0 Objective Vital Signs - 12hr 09/30/18 09/30/18 09/30/18 00:30 00:40 00:50 Pulse Rate 122 H 121 H 122 H Respiratory 16 14 19 Rate Blood Pressure 114/68 114/68 114/68 O2 Sat by Pulse 93 96 98 Oximetry 09/30/18 09/30/18 09/30/18 01:00 01:10 01:21 Pulse Rate 123 H 121 H 121 H Respiratory 20 19 18 Rate Blood Pressure 114/68 114/68 O2 Sat by Pulse 95 96 97 Oximetry 09/30/18 09/30/18 09/30/18 01:31 01:40 01:51 Pulse Rate 121 H 120 H 119 H Respiratory 19 19 18 Rate Blood Pressure 114/68 114/68 122/82 O2 Sat by Pulse 97 95 96 Oximetry 09/30/18 09/30/18 09/30/18 02:00 02:11 02:20 Pulse Rate 119 H 120 H 121 H Respiratory 15 24 23 Rate Blood Pressure 125/80 125/80 125/80 O2 Sat by Pulse 94 96 98 Oximetry 09/30/18 09/30/18 09/30/18 02:31 02:40 02:50 Pulse Rate 121 H 118 H 119 H Respiratory 14 16 25 H Rate Blood Pressure 125/80 125/80 125/80 O2 Sat by Pulse 93 95 100 Oximetry 09/30/18 09/30/18 09/30/18 03:00 03:10 03:20 Pulse Rate 120 H 118 H 118 H Respiratory 16 13 15 Rate Blood Pressure 121/70 121/70 121/70 O2 Sat by Pulse 92 93 95 Oximetry 09/30/18 09/30/18 09/30/18 03:30 03:40 03:51 Pulse Rate 118 H 117 H 117 H Respiratory 13 11 L 12 Rate Blood Pressure 121/70 121/70 121/70 O2 Sat by Pulse 97 96 97 Oximetry 09/30/18 09/30/18 09/30/18 04:00 04:11 04:21 Pulse Rate 116 H 116 H 116 H Respiratory 16 13 10 L Rate Blood Pressure 116/77 116/77 116/77 O2 Sat by Pulse 96 95 96 Oximetry 09/30/18 09/30/18 09/30/18 04:31 04:40 04:51 Pulse Rate 114 H 116 H 114 H Respiratory 16 11 L 15 Rate Blood Pressure 116/77 116/77 116/77 O2 Sat by Pulse 96 97 94 Oximetry 09/30/18 09/30/18 09/30/18 05:00 05:11 05:20 Pulse Rate 115 H 114 H 117 H Respiratory 13 13 15 Rate Blood Pressure 114/84 114/84 114/84 O2 Sat by Pulse 95 98 96 Oximetry 09/30/18 09/30/18 09/30/18 05:31 05:40 05:51 Pulse Rate 114 H 114 H 115 H Respiratory 15 14 17 Rate Blood Pressure 114/84 114/84 114/84 O2 Sat by Pulse 95 96 98 Oximetry 09/30/18 09/30/18 09/30/18 06:00 06:11 06:20 Pulse Rate 114 H 114 H 112 H Respiratory 13 15 15 Rate Blood Pressure 118/82 118/82 118/82 O2 Sat by Pulse 94 97 96 Oximetry 09/30/18 09/30/18 09/30/18 06:31 06:40 06:51 Pulse Rate 112 H 113 H 119 H Respiratory 12 11 L 28 H Rate Blood Pressure 118/82 118/82 118/82 O2 Sat by Pulse 95 93 95 Oximetry 09/30/18 09/30/18 09/30/18 07:00 07:11 07:20 Pulse Rate 117 H 114 H 117 H Respiratory 20 10 L 13 Rate Blood Pressure 110/86 110/86 110/86 O2 Sat by Pulse 96 95 94 Oximetry 09/30/18 09/30/18 09/30/18 07:31 07:40 07:51 Pulse Rate 113 H 112 H 115 H Respiratory 16 15 28 H Rate Blood Pressure 110/86 110/86 110/86 O2 Sat by Pulse 94 Oximetry 09/30/18 09/30/18 09/30/18 08:00 08:11 08:20 Pulse Rate 116 H 116 H 116 H Respiratory 14 16 16 Rate Blood Pressure 116/81 116/81 116/81 O2 Sat by Pulse 94 94 97 Oximetry 09/30/18 09/30/18 09/30/18 08:27 08:31 08:41 Pulse Rate 111 H 112 H Respiratory 10 L 10 L Rate Blood Pressure 116/81 116/81 O2 Sat by Pulse 98 95 96 Oximetry 09/30/18 09/30/18 09/30/18 08:50 09:00 09:10 Pulse Rate 111 H 115 H 115 H Respiratory 11 L 21 14 Rate Blood Pressure 116/81 119/62 119/62 O2 Sat by Pulse 95 96 96 Oximetry 09/30/18 09/30/18 09/30/18 09:21 09:30 09:40 Pulse Rate 114 H 110 H 111 H Respiratory 10 L 13 15 Rate Blood Pressure 119/62 119/62 119/62 O2 Sat by Pulse 98 97 95 Oximetry - Labs 09/30/18 04:28 09/30/18 04:28 Diabetes panel 09/30/18 Range/Units 04:28 Sodium 145 (137-145) mmol/L Potassium 4.5 (3.6-5.0) mmol/L Chloride 108.1 H (98-107) mmol/L Carbon Dioxide 27 (22-30) mmol/L BUN 9 (9-20) mg/dL Creatinine 1.0 (0.8-1.5) mg/dL Glucose 140 H (75-100) mg/dL Calcium 7.9 L (8.4-10.2) mg/dL AST 33 (5-40) units/L ALT 15 (7-56) units/L Alkaline Phosphatase 69 (35-129) units/L Total Protein 6.4 (6.3-8.2) g/dL Albumin 2.5 L (3.9-5) g/dL Calcium panel 09/30/18 Range/Units 04:28 Calcium 7.9 L (8.4-10.2) mg/dL Albumin 2.5 L (3.9-5) g/dL Pituitary panel 09/30/18 Range/Units 04:28 Sodium 145 (137-145) mmol/L Potassium 4.5 (3.6-5.0) mmol/L Chloride 108.1 H (98-107) mmol/L Carbon Dioxide 27 (22-30) mmol/L BUN 9 (9-20) mg/dL Creatinine 1.0 (0.8-1.5) mg/dL Glucose 140 H (75-100) mg/dL Calcium 7.9 L (8.4-10.2) mg/dL Adrenal panel 09/30/18 Range/Units 04:28 Sodium 145 (137-145) mmol/L Potassium 4.5 (3.6-5.0) mmol/L Chloride 108.1 H (98-107) mmol/L Carbon Dioxide 27 (22-30) mmol/L BUN 9 (9-20) mg/dL Creatinine 1.0 (0.8-1.5) mg/dL Glucose 140 H (75-100) mg/dL Calcium 7.9 L (8.4-10.2) mg/dL Total Bilirubin 3.50 H (0.1-1.2) mg/dL AST 33 (5-40) units/L ALT 15 (7-56) units/L Alkaline Phosphatase 69 (35-129) units/L Total Protein 6.4 (6.3-8.2) g/dL Albumin 2.5 L (3.9-5) g/dL
--- NOTE | 2018-09-30 16:27 | Progress Note ---
Assessment and Plan Assessment and plan: Sigmoid diverticulitis with perforation status post sigmoid colectomy with end colostomy Sepsis - Patient's nothing by mouth - IV fluids - IV zosyn - Surgery and ID is on board Disposition - Continue inpatient care History Interval history: Patient was seen and evaluated this morning, patient was not in pain or distress. Hospitalist Physical - Physical exam Narrative exam: Patient was in distress from pain. The patient appeared well nourished and normally developed. Vital signs as documented. Head exam is unremarkable. No scleral icterus . Neck is without jugular venous distension, thyromegaly, or carotid bruits. Lungs are clear to auscultation. Cardiac exam reveals regular rate and Rhythm. First and second heart sounds normal. No murmurs, rubs or gallops. Abdominal exam status post laparotomy and ostomy tube in place. Extremities are nonedematous and both femoral and pedal pulses are normal. 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 No focal weakness. - Constitutional Vitals: Temp Pulse Resp BP Pulse Ox 99.0 F 111 H 15 119/62 95 09/28/18 20:15 09/30/18 09:40 09/30/18 09:40 09/30/18 09:40 09/30/18 09:40 General appearance: Present: no acute distress, well-nourished Results - Labs CBC & Chem 7: 09/30/18 04:28 09/30/18 04:28 Labs: Laboratory Last Values WBC 15.8 K/mm3 (4.5-11.0) H 09/30/18 04:28 RBC 4.09 M/mm3 (3.65-5.03) 09/30/18 04:28 Hgb 11.5 gm/dl (11.8-15.2) L 09/30/18 04:28 Hct 34.8 % (35.5-45.6) L D 09/30/18 04:28 MCV 85 fl (84-94) 09/30/18 04:28 MCH 28 pg (28-32) 09/30/18 04:28 MCHC 33 % (32-34) 09/30/18 04:28 RDW 16.0 % (13.2-15.2) H 09/30/18 04:28 Plt Count 184 K/mm3 (140-440) 09/30/18 04:28 Lymph % (Auto) 3.7 % (13.4-35.0) L 09/30/18 04:28 [place] % (Auto) 8.7 % (0.0-7.3) H 09/30/18 04:28 Eos % (Auto) 1.2 % (0.0-4.3) 09/30/18 04:28 Baso % (Auto) 0.7 % (0.0-1.8) 09/30/18 04:28 Lymph # 0.6 K/mm3 (1.2-5.4) L 09/30/18 04:28 [place] # 1.4 K/mm3 (0.0-0.8) H 09/30/18 04:28 Eos # 0.2 K/mm3 (0.0-0.4) 09/30/18 04:28 Baso # 0.1 K/mm3 (0.0-0.1) 09/30/18 04:28 Add Manual Diff Complete 09/28/18 11:15 Total Counted 100 09/28/18 11:15 Seg Neutrophils % 85.7 % (40.0-70.0) H 09/30/18 04:28 Seg Neuts % (Manual) 92.0 % (40.0-70.0) H 09/28/18 11:15 Band Neutrophils % 0 % 09/28/18 11:15 Lymphocytes % (Manual) 5.0 % (13.4-35.0) L 09/28/18 11:15 Reactive Lymphs % (Man) 0 % 09/28/18 11:15 Monocytes % (Manual) 3.0 % (0.0-7.3) 09/28/18 11:15 Eosinophils % (Manual) 0 % (0.0-4.3) 09/28/18 11:15 Basophils % (Manual) 0 % (0.0-1.8) 09/28/18 11:15 Metamyelocytes % 0 % 09/28/18 11:15 Myelocytes % 0 % 09/28/18 11:15 Promyelocytes % 0 % 09/28/18 11:15 Blast Cells % 0 % 09/28/18 11:15 Nucleated RBC % Not Reportable 09/28/18 11:15 Seg Neutrophils # 13.5 K/mm3 (1.8-7.7) H 09/30/18 04:28 Seg Neutrophils # Man 8.0 K/mm3 (1.8-7.7) H 09/28/18 11:15 Band Neutrophils # 0.0 K/mm3 09/28/18 11:15 Lymphocytes # (Manual) 0.4 K/mm3 (1.2-5.4) L 09/28/18 11:15 Abs React Lymphs (Man) 0.0 K/mm3 09/28/18 11:15 Monocytes # (Manual) 0.3 K/mm3 (0.0-0.8) 09/28/18 11:15 Eosinophils # (Manual) 0.0 K/mm3 (0.0-0.4) 09/28/18 11:15 Basophils # (Manual) 0.0 K/mm3 (0.0-0.1) 09/28/18 11:15 Metamyelocytes # 0.0 K/mm3 09/28/18 11:15 Myelocytes # 0.0 K/mm3 09/28/18 11:15 Promyelocytes # 0.0 K/mm3 09/28/18 11:15 Blast Cells # 0.0 K/mm3 09/28/18 11:15 WBC Morphology Not Reportable 09/28/18 11:15 Hypersegmented Neuts Not Reportable 09/28/18 11:15 Hyposegmented Neuts Not Reportable 09/28/18 11:15 Hypogranular Neuts Not Reportable 09/28/18 11:15 Smudge Cells Not Reportable 09/28/18 11:15 Toxic Granulation Not Reportable 09/28/18 11:15 Toxic Vacuolation Not Reportable 09/28/18 11:15 Dohle Bodies Not Reportable 09/28/18 11:15 Pelger-Huet Anomaly Not Reportable 09/28/18 11:15 Nkechi Rods Not Reportable 09/28/18 11:15 Platelet Estimate Consistent w auto 09/28/18 11:15 Clumped Platelets Not Reportable 09/28/18 11:15 Plt Clumps, EDTA Not Reportable 09/28/18 11:15 Large Platelets Not Reportable 09/28/18 11:15 Giant Platelets Not Reportable 09/28/18 11:15 Platelet Satelliting Not Reportable 09/28/18 11:15 Plt Morphology Comment Not Reportable 09/28/18 11:15 RBC Morphology Not Reportable 09/28/18 11:15 Dimorphic RBCs Not Reportable 09/28/18 11:15 Polychromasia Not Reportable 09/28/18 11:15 Hypochromasia Not Reportable 09/28/18 11:15 Poikilocytosis 1+ 09/28/18 11:15 Anisocytosis 1+ 09/28/18 11:15 Microcytosis Not Reportable 09/28/18 11:15 Macrocytosis Not Reportable 09/28/18 11:15 Spherocytes Not Reportable 09/28/18 11:15 Pappenheimer Bodies Not Reportable 09/28/18 11:15 Sickle Cells Not Reportable 09/28/18 11:15 Target Cells Not Reportable 09/28/18 11:15 Tear Drop Cells Not Reportable 09/28/18 11:15 Ovalocytes Few 09/28/18 11:15 Helmet Cells Not Reportable 09/28/18 11:15 Garcia-[place] Bodies Not Reportable 09/28/18 11:15 [place] Rings Not Reportable 09/28/18 11:15 Kati Cells Not Reportable 09/28/18 11:15 Bite Cells Not Reportable 09/28/18 11:15 Crenated Cell Not Reportable 09/28/18 11:15 Elliptocytes Not Reportable 09/28/18 11:15 Acanthocytes (Spur) Not Reportable 09/28/18 11:15 Rouleaux Not Reportable 09/28/18 11:15 Hemoglobin C Crystals Not Reportable 09/28/18 11:15 Schistocytes Not Reportable 09/28/18 11:15 Malaria parasites Not Reportable 09/28/18 11:15 Salo Bodies Not Reportable 09/28/18 11:15 Hem Pathologist Commnt No 09/28/18 11:15 PT 15.0 Sec. (12.2-14.9) H 09/25/18 08:00 INR 1.14 (0.87-1.13) H 09/25/18 08:00 APTT 36.5 Sec. (24.2-36.6) 09/25/18 08:00 Sodium 145 mmol/L (137-145) 09/30/18 04:28 Potassium 4.5 mmol/L (3.6-5.0) 09/30/18 04:28 Chloride 108.1 mmol/L (98-107) H 09/30/18 04:28 Carbon Dioxide 27 mmol/L (22-30) 09/30/18 04:28 Anion Gap 14 mmol/L 09/30/18 04:28 BUN 9 mg/dL (9-20) 09/30/18 04:28 Creatinine 1.0 mg/dL (0.8-1.5) 09/30/18 04:28 Estimated GFR > 60 ml/min 09/30/18 04:28 BUN/Creatinine Ratio 9 % 09/30/18 04:28 Glucose 140 mg/dL (75-100) H 09/30/18 04:28 POC Glucose 114 (70-105) H 09/30/18 09:40 Lactic Acid 1.10 mmol/L (0.7-2.0) 09/28/18 21:44 Calcium 7.9 mg/dL (8.4-10.2) L 09/30/18 04:28 Magnesium 1.90 mg/dL (1.7-2.3) 09/25/18 08:00 Total Bilirubin 3.50 mg/dL (0.1-1.2) H 09/30/18 04:28 AST 33 units/L (5-40) 09/30/18 04:28 ALT 15 units/L (7-56) 09/30/18 04:28 Alkaline Phosphatase 69 units/L (35-129) 09/30/18 04:28 NT-Pro-B Natriuret Pep 160.5 pg/mL (0-900) 09/25/18 08:00 Total Protein 6.4 g/dL (6.3-8.2) 09/30/18 04:28 Albumin 2.5 g/dL (3.9-5) L 09/30/18 04:28 Albumin/Globulin Ratio 0.6 % 09/30/18 04:28 Lipase 13 units/L (13-60) 09/25/18 07:03 Urine Color Tania (Yellow) 09/25/18 07:25 Urine Turbidity Clear (Clear) 09/25/18 07:25 Urine pH 5.0 (5.0-7.0) 09/25/18 07:25 Ur Specific G[place]rie 1.014 (1.003-1.030) 09/25/18 07:25 Urine Protein 30 mg/dl mg/dL (Negative) 09/25/18 07:25 Urine Glucose (UA) Neg mg/dL (Negative) 09/25/18 07:25 Urine Ketones Neg mg/dL (Negative) 09/25/18 07:25 Urine Blood Mod (Negative) 09/25/18 07:25 Urine Nitrite Neg (Negative) 09/25/18 07:25 Urine Bilirubin Neg (Negative) 09/25/18 07:25 Urine Urobilinogen 4.0 mg/dL (<2.0) 09/25/18 07:25 Ur Leukocyte Esterase Neg (Negative) 09/25/18 07:25 Urine WBC (Auto) 7.0 /HPF (0.0-6.0) H 09/25/18 07:25 Urine RBC (Auto) 2.0 /HPF (0.0-6.0) 09/25/18 07:25 U Epithel Cells (Auto) < 1.0 /HPF (0-13.0) 09/25/18 07:25 Blood Type O POSITIVE 09/28/18 14:20 Antibody Screen Negative 09/28/18 14:20 Nutrition/Malnutrition Assess - Dietary Evaluation Nutrition/Malnutrition Findings: Nutrition Notes Start: 09/30/18 12:11 Freq: Status: Active Protocol: Document 09/30/18 12:11 CT (Rec: 09/30/18 12:25 CT [id number]) Co-Sign 09/30/18 12:11 LP Nutrition Notes Need for Assessment generated from: LOS Initial or Follow up Brief Note Current Diagnosis Sepsis Other Pertinent Diagnosis diverticulitis Current Diet NPO Subjective/Other Information Screened for LOS. Pt asleep at time of visit and s/p colostomy yesterday. Nutrition Intervention Follow-Up By: 10/04/18 Additional Comments F/U: diet advancement, diverticulitis education
[2018-10-01] MEDS: D5W/0.45% NACL/KCL 30 MEQ 30 MEQ/1,000 ML BAG IV SCH (02:14)
[2018-10-01 05:13] LABS: Basophils # (Auto) 0.1 K/mm3 (0.0-0.1); Basophils % (Auto) 0.6 % (0.0-1.8); Eosinophils # (Auto) 0.6 K/mm3 (0.0-0.4); Eosinophils % (Auto) 4.1 % (0.0-4.3); Hematocrit 32.8 % (35.5-45.6); Hemoglobin 10.9 gm/dl (11.8-15.2); Lymphocytes # (Auto) 0.7 K/mm3 (1.2-5.4); Lymphocytes % (Auto) 4.8 % (13.4-35.0); Mean Corpuscular HGB Conc 33 % (32-34); Mean Corpuscular Volume 85 fl (84-94); Monocytes # (Auto) 0.9 K/mm3 (0.0-0.8); Monocytes % (Auto) 6.5 % (0.0-7.3); Platelet Count 300 K/mm3 (140-440); Red Blood Count 3.88 M/mm3 (3.65-5.03); Red Cell Distribution Width 15.8 % (13.2-15.2)
[2018-10-01] MEDS: DILAUDID IV PRN ×4 (05:16→21:24)
[2018-10-01] MEDS: ZOSYN/NS 4.5GM/100ML 4.5 GM/100 ML VIAL IV SCH (05:18)
--- NOTE | 2018-10-01 09:18 | Progress Note ---
Assessment and Plan POD # 3 Pt feeling well. hungry Abd non tender. dressings dry. ostomy pink. neg flatus in bag stable may transfer to surgical floor from our perspective ambulate down halls as chuckie continue present care Selected Entries 10/01/18 10/01/18 03:59 05:30 Temperature 99.4 F Pulse Rate 111 H O2 Sat by Pulse 82 L Oximetry Blood Pressure 151/99 Laboratory Tests 09/30/18 10/01/18 04:28 04:52 WBC 14.7 H Hgb 11.5 L 10.9 L Hct 34.8 L D 32.8 L Objective Vital Signs - 12hr 09/30/18 09/30/18 09/30/18 21:20 21:30 21:40 Temperature Pulse Rate 114 H 109 H 111 H Pulse Rate [ From Monitor] Respiratory 17 22 24 Rate Blood Pressure 143/89 143/89 143/89 O2 Sat by Pulse 93 94 96 Oximetry 09/30/18 09/30/18 09/30/18 21:50 22:00 22:10 Temperature Pulse Rate 110 H 109 H 110 H Pulse Rate [ From Monitor] Respiratory 17 8 L 12 Rate Blood Pressure 143/89 119/83 119/83 O2 Sat by Pulse 94 97 96 Oximetry 09/30/18 09/30/18 09/30/18 22:20 22:30 22:40 Temperature Pulse Rate 108 H 113 H 108 H Pulse Rate [ From Monitor] Respiratory 11 L 12 13 Rate Blood Pressure 143/89 143/89 143/89 O2 Sat by Pulse 95 90 89 Oximetry 09/30/18 09/30/18 09/30/18 22:50 23:00 23:10 Temperature Pulse Rate 109 H 105 H 109 H Pulse Rate [ From Monitor] Respiratory 13 10 L 14 Rate Blood Pressure 143/89 143/89 143/89 O2 Sat by Pulse 90 91 90 Oximetry 09/30/18 09/30/18 09/30/18 23:20 23:30 23:40 Temperature Pulse Rate 108 H 102 H 100 H Pulse Rate [ From Monitor] Respiratory 13 19 17 Rate Blood Pressure 143/89 143/89 143/89 O2 Sat by Pulse 92 90 92 Oximetry 09/30/18 10/01/18 10/01/18 23:50 00:00 00:10 Temperature 98.6 F Pulse Rate 101 H 99 H 107 H Pulse Rate [ 100 H From Monitor] Respiratory 13 18 15 Rate Blood Pressure 143/89 143/89 143/89 O2 Sat by Pulse 89 99 90 Oximetry 10/01/18 10/01/18 10/01/18 00:20 00:30 00:40 Temperature Pulse Rate 99 H 101 H 106 H Pulse Rate [ From Monitor] Respiratory 15 12 19 Rate Blood Pressure 143/89 143/89 143/89 O2 Sat by Pulse 90 91 90 Oximetry 10/01/18 10/01/18 10/01/18 00:50 01:00 01:10 Temperature Pulse Rate 106 H 103 H 98 H Pulse Rate [ From Monitor] Respiratory 19 16 14 Rate Blood Pressure 143/89 143/89 143/89 O2 Sat by Pulse 87 89 90 Oximetry 10/01/18 10/01/18 10/01/18 01:20 01:30 01:40 Temperature Pulse Rate 106 H 107 H 102 H Pulse Rate [ From Monitor] Respiratory 21 14 16 Rate Blood Pressure 143/89 143/89 143/89 O2 Sat by Pulse 89 89 90 Oximetry 10/01/18 10/01/18 10/01/18 01:50 02:00 02:10 Temperature Pulse Rate 103 H 101 H 102 H Pulse Rate [ From Monitor] Respiratory 17 24 15 Rate Blood Pressure 143/89 143/89 143/89 O2 Sat by Pulse 91 91 91 Oximetry 10/01/18 10/01/18 10/01/18 02:20 02:30 02:40 Temperature Pulse Rate 105 H 106 H 105 H Pulse Rate [ From Monitor] Respiratory 22 18 17 Rate Blood Pressure 138/90 138/90 138/90 O2 Sat by Pulse 91 92 93 Oximetry 10/01/18 10/01/18 10/01/18 02:50 03:00 03:10 Temperature Pulse Rate 102 H 102 H 102 H Pulse Rate [ From Monitor] Respiratory 16 14 15 Rate Blood Pressure 138/90 127/83 127/83 O2 Sat by Pulse 92 90 90 Oximetry 10/01/18 10/01/18 10/01/18 03:20 03:30 03:40 Temperature Pulse Rate 108 H 107 H 111 H Pulse Rate [ From Monitor] Respiratory 20 19 20 Rate Blood Pressure 127/83 138/90 138/90 O2 Sat by Pulse 90 90 92 Oximetry 10/01/18 10/01/18 10/01/18 03:50 03:59 04:00 Temperature 99.4 F Pulse Rate 110 H 106 H Pulse Rate [ 102 H From Monitor] Respiratory 17 16 Rate Blood Pressure 138/90 142/95 O2 Sat by Pulse 89 92 Oximetry 10/01/18 10/01/18 10/01/18 04:10 04:20 04:30 Temperature Pulse Rate 106 H 104 H 108 H Pulse Rate [ From Monitor] Respiratory 18 19 16 Rate Blood Pressure 142/95 142/95 142/95 O2 Sat by Pulse 92 92 88 Oximetry 10/01/18 10/01/18 10/01/18 04:40 04:50 05:00 Temperature Pulse Rate 104 H 113 H 110 H Pulse Rate [ From Monitor] Respiratory 16 26 H 21 Rate Blood Pressure 142/95 142/95 151/99 O2 Sat by Pulse 91 91 89 Oximetry 10/01/18 10/01/18 10/01/18 05:10 05:20 05:30 Temperature Pulse Rate 112 H 112 H 111 H Pulse Rate [ From Monitor] Respiratory 14 14 15 Rate Blood Pressure 151/99 151/99 151/99 O2 Sat by Pulse 90 87 82 L Oximetry 10/01/18 10/01/18 10/01/18 05:40 05:50 06:00 Temperature Pulse Rate 107 H 111 H 114 H Pulse Rate [ From Monitor] Respiratory 14 16 11 L Rate Blood Pressure 151/99 151/99 152/90 O2 Sat by Pulse 87 86 89 Oximetry 10/01/18 10/01/18 06:10 06:20 Temperature Pulse Rate 102 H 115 H Pulse Rate [ From Monitor] Respiratory 14 18 Rate Blood Pressure 152/90 152/90 O2 Sat by Pulse 89 87 Oximetry - Labs 10/01/18 04:52 09/30/18 04:28
[2018-10-01] MEDS: MAXIPIME/NS 1 GM/100 ML 1 GM/100 ML BAG IV SCH (09:43)
[2018-10-01] MEDS: PEPCID IV SCH ×2 (09:44→21:23)
--- NOTE | 2018-10-01 14:14 | Event Note ---
Date: 10/01/18 Noted surgical culture growing E.coli x 2 types, one of them is I to Zosyn. Switched to Cefepime 2 gm q8 hrs and Flagyl 500 mg q8 hrs.
--- NOTE | 2018-10-01 14:32 | Progress Note ---
Assessment and Plan Assessment and plan: Sigmoid diverticulitis with perforation status post sigmoid colectomy with end colostomy Sepsis - Patient's nothing by mouth - IV fluids - IV zosyn changed to cefepime and falgyl per culture result - WBC is trending down - Surgery and ID is on board Sinus tach - likely due to the above - No chest pain or shortness of breath Disposition -Transfer to surgical floor History Interval history: Patient was seen and evaluated this morning, patient was not in pain or distress. Hospitalist Physical - Physical exam Narrative exam: Patient was in distress from pain. The patient appeared well nourished and normally developed. Vital signs as documented. Head exam is unremarkable. No scleral icterus . Neck is without jugular venous distension, thyromegaly, or carotid bruits. Lungs are clear to auscultation. Cardiac exam reveals regular rate and Rhythm. First and second heart sounds normal. No murmurs, rubs or gallops. Abdominal exam status post laparotomy and ostomy tube in place. Extremities are nonedematous and both femoral and pedal pulses are normal. [employer]: Alert and oriented 3. No focal weakness. - Constitutional Vitals: Temp Pulse Resp BP Pulse Ox 99.4 F 99 H 17 144/102 98 10/01/18 03:59 10/01/18 12:00 10/01/18 12:00 10/01/18 12:00 10/01/18 12:00 General appearance: Present: no acute distress, well-nourished Results - Labs CBC & Chem 7: 10/01/18 04:52 09/30/18 04:28 Labs: Laboratory Last Values WBC 14.7 K/mm3 (4.5-11.0) H 10/01/18 04:52 RBC 3.88 M/mm3 (3.65-5.03) 10/01/18 04:52 Hgb 10.9 gm/dl (11.8-15.2) L 10/01/18 04:52 Hct 32.8 % (35.5-45.6) L 10/01/18 04:52 MCV 85 fl (84-94) 10/01/18 04:52 MCH 28 pg (28-32) 10/01/18 04:52 MCHC 33 % (32-34) 10/01/18 04:52 RDW 15.8 % (13.2-15.2) H 10/01/18 04:52 Plt Count 300 K/mm3 (140-440) 10/01/18 04:52 Lymph % (Auto) 4.8 % (13.4-35.0) L 10/01/18 04:52 [place] % (Auto) 6.5 % (0.0-7.3) 10/01/18 04:52 Eos % (Auto) 4.1 % (0.0-4.3) 10/01/18 04:52 Baso % (Auto) 0.6 % (0.0-1.8) 10/01/18 04:52 Lymph # 0.7 K/mm3 (1.2-5.4) L 10/01/18 04:52 [place] # 0.9 K/mm3 (0.0-0.8) H 10/01/18 04:52 Eos # 0.6 K/mm3 (0.0-0.4) H 10/01/18 04:52 Baso # 0.1 K/mm3 (0.0-0.1) 10/01/18 04:52 Add Manual Diff Complete 09/28/18 11:15 Total Counted 100 09/28/18 11:15 Seg Neutrophils % 84.0 % (40.0-70.0) H 10/01/18 04:52 Seg Neuts % (Manual) 92.0 % (40.0-70.0) H 09/28/18 11:15 Band Neutrophils % 0 % 09/28/18 11:15 Lymphocytes % (Manual) 5.0 % (13.4-35.0) L 09/28/18 11:15 Reactive Lymphs % (Man) 0 % 09/28/18 11:15 Monocytes % (Manual) 3.0 % (0.0-7.3) 09/28/18 11:15 Eosinophils % (Manual) 0 % (0.0-4.3) 09/28/18 11:15 Basophils % (Manual) 0 % (0.0-1.8) 09/28/18 11:15 Metamyelocytes % 0 % 09/28/18 11:15 Myelocytes % 0 % 09/28/18 11:15 Promyelocytes % 0 % 09/28/18 11:15 Blast Cells % 0 % 09/28/18 11:15 Nucleated RBC % Not Reportable 09/28/18 11:15 Seg Neutrophils # 12.3 K/mm3 (1.8-7.7) H 10/01/18 04:52 Seg Neutrophils # Man 8.0 K/mm3 (1.8-7.7) H 09/28/18 11:15 Band Neutrophils # 0.0 K/mm3 09/28/18 11:15 Lymphocytes # (Manual) 0.4 K/mm3 (1.2-5.4) L 09/28/18 11:15 Abs React Lymphs (Man) 0.0 K/mm3 09/28/18 11:15 Monocytes # (Manual) 0.3 K/mm3 (0.0-0.8) 09/28/18 11:15 Eosinophils # (Manual) 0.0 K/mm3 (0.0-0.4) 09/28/18 11:15 Basophils # (Manual) 0.0 K/mm3 (0.0-0.1) 09/28/18 11:15 Metamyelocytes # 0.0 K/mm3 09/28/18 11:15 Myelocytes # 0.0 K/mm3 09/28/18 11:15 Promyelocytes # 0.0 K/mm3 09/28/18 11:15 Blast Cells # 0.0 K/mm3 09/28/18 11:15 WBC Morphology Not Reportable 09/28/18 11:15 Hypersegmented Neuts Not Reportable 09/28/18 11:15 Hyposegmented Neuts Not Reportable 09/28/18 11:15 Hypogranular Neuts Not Reportable 09/28/18 11:15 Smudge Cells Not Reportable 09/28/18 11:15 Toxic Granulation Not Reportable 09/28/18 11:15 Toxic Vacuolation Not Reportable 09/28/18 11:15 Dohle Bodies Not Reportable 09/28/18 11:15 Pelger-Huet Anomaly Not Reportable 09/28/18 11:15 [place] Rods Not Reportable 09/28/18 11:15 Platelet Estimate Consistent w auto 09/28/18 11:15 Clumped Platelets Not Reportable 09/28/18 11:15 Plt Clumps, EDTA Not Reportable 09/28/18 11:15 Large Platelets Not Reportable 09/28/18 11:15 Giant Platelets Not Reportable 09/28/18 11:15 Platelet Satelliting Not Reportable 09/28/18 11:15 Plt Morphology Comment Not Reportable 09/28/18 11:15 RBC Morphology Not Reportable 09/28/18 11:15 Dimorphic RBCs Not Reportable 09/28/18 11:15 Polychromasia Not Reportable 09/28/18 11:15 Hypochromasia Not Reportable 09/28/18 11:15 Poikilocytosis 1+ 09/28/18 11:15 Anisocytosis 1+ 09/28/18 11:15 Microcytosis Not Reportable 09/28/18 11:15 Macrocytosis Not Reportable 09/28/18 11:15 Spherocytes Not Reportable 09/28/18 11:15 Pappenheimer Bodies Not Reportable 09/28/18 11:15 Sickle Cells Not Reportable 09/28/18 11:15 Target Cells Not Reportable 09/28/18 11:15 Tear Drop Cells Not Reportable 09/28/18 11:15 Ovalocytes Few 09/28/18 11:15 Helmet Cells Not Reportable 09/28/18 11:15 [place] Bodies Not Reportable 09/28/18 11:15 [place] Rings Not Reportable 09/28/18 11:15 [place] Cells Not Reportable 09/28/18 11:15 Bite Cells Not Reportable 09/28/18 11:15 Crenated Cell Not Reportable 09/28/18 11:15 Elliptocytes Not Reportable 09/28/18 11:15 Acanthocytes (Spur) Not Reportable 09/28/18 11:15 Rouleaux Not Reportable 09/28/18 11:15 Hemoglobin C Crystals Not Reportable 09/28/18 11:15 Schistocytes Not Reportable 09/28/18 11:15 Malaria parasites Not Reportable 09/28/18 11:15 Salo Bodies Not Reportable 09/28/18 11:15 Hem Pathologist Commnt No 09/28/18 11:15 PT 15.0 Sec. (12.2-14.9) H 09/25/18 08:00 INR 1.14 (0.87-1.13) H 09/25/18 08:00 APTT 36.5 Sec. (24.2-36.6) 09/25/18 08:00 Sodium 145 mmol/L (137-145) 09/30/18 04:28 Potassium 4.5 mmol/L (3.6-5.0) 09/30/18 04:28 Chloride 108.1 mmol/L (98-107) H 09/30/18 04:28 Carbon Dioxide 27 mmol/L (22-30) 09/30/18 04:28 Anion Gap 14 mmol/L 09/30/18 04:28 BUN 9 mg/dL (9-20) 09/30/18 04:28 Creatinine 1.0 mg/dL (0.8-1.5) 09/30/18 04:28 Estimated GFR > 60 ml/min 09/30/18 04:28 BUN/Creatinine Ratio 9 % 09/30/18 04:28 Glucose 140 mg/dL (75-100) H 09/30/18 04:28 POC Glucose 114 (70-105) H 09/30/18 09:40 Lactic Acid 1.10 mmol/L (0.7-2.0) 09/28/18 21:44 Calcium 7.9 mg/dL (8.4-10.2) L 09/30/18 04:28 Magnesium 1.90 mg/dL (1.7-2.3) 09/25/18 08:00 Total Bilirubin 3.50 mg/dL (0.1-1.2) H 09/30/18 04:28 AST 33 units/L (5-40) 09/30/18 04:28 ALT 15 units/L (7-56) 09/30/18 04:28 Alkaline Phosphatase 69 units/L (35-129) 09/30/18 04:28 NT-Pro-B Natriuret Pep 160.5 pg/mL (0-900) 09/25/18 08:00 Total Protein 6.4 g/dL (6.3-8.2) 09/30/18 04:28 Albumin 2.5 g/dL (3.9-5) L 09/30/18 04:28 Albumin/Globulin Ratio 0.6 % 09/30/18 04:28 Lipase 13 units/L (13-60) 09/25/18 07:03 Urine Color [place] (Yellow) 09/25/18 07:25 Urine Turbidity Clear (Clear) 09/25/18 07:25 Urine pH 5.0 (5.0-7.0) 09/25/18 07:25 Ur Specific [place] 1.014 (1.003-1.030) 09/25/18 07:25 Urine Protein 30 mg/dl mg/dL (Negative) 09/25/18 07:25 Urine Glucose (UA) Neg mg/dL (Negative) 09/25/18 07:25 Urine Ketones Neg mg/dL (Negative) 09/25/18 07:25 Urine Blood Mod (Negative) 09/25/18 07:25 Urine Nitrite Neg (Negative) 09/25/18 07:25 Urine Bilirubin Neg (Negative) 09/25/18 07:25 Urine Urobilinogen 4.0 mg/dL (<2.0) 09/25/18 07:25 Ur Leukocyte Esterase Neg (Negative) 09/25/18 07:25 Urine WBC (Auto) 7.0 /HPF (0.0-6.0) H 09/25/18 07:25 Urine RBC (Auto) 2.0 /HPF (0.0-6.0) 09/25/18 07:25 U Epithel Cells (Auto) < 1.0 /HPF (0-13.0) 09/25/18 07:25 Blood Type O POSITIVE 09/28/18 14:20 Antibody Screen Negative 09/28/18 14:20 Nutrition/Malnutrition Assess - Dietary Evaluation Nutrition/Malnutrition Findings: Nutrition Notes Start: 09/30/18 12:11 Freq: Status: Active Protocol: Document 09/30/18 12:11 CT (Rec: 09/30/18 12:25 CT [id number]) Co-Sign 09/30/18 12:11 LP Nutrition Notes Need for Assessment generated from: LOS Initial or Follow up Brief Note Current Diagnosis Sepsis Other Pertinent Diagnosis diverticulitis Current Diet NPO Subjective/Other Information Screened for LOS. Pt asleep at time of visit and s/p colostomy yesterday. Nutrition Intervention Follow-Up By: 10/04/18 Additional Comments F/U: diet advancement, diverticulitis education
[2018-10-01] MEDS: MAXIPIME/NS 2 GM/100 ML 2 GM/100 ML BAG IV SCH ×2 (16:39→21:24)
[2018-10-01] MEDS: FLAGYL 500 MG/100 ML 500 MG/100 ML BAG IV SCH ×2 (18:22→22:51)
[2018-10-02] MEDS: D5/0.45NS 1,000 ML IV SCH ×3 (00:04→21:53)
[2018-10-02] MEDS: DILAUDID IV PRN ×5 (03:17→23:36)
[2018-10-02] MEDS: MAXIPIME/NS 1 GM/100 ML 1 GM/100 ML BAG IV SCH (03:23)
[2018-10-02 04:44] LABS: Basophils # (Auto) 0.1 K/mm3 (0.0-0.1); Basophils % (Auto) 0.6 % (0.0-1.8); Eosinophils # (Auto) 0.4 K/mm3 (0.0-0.4); Eosinophils % (Auto) 3.5 % (0.0-4.3); Hemoglobin 10.9 gm/dl (11.8-15.2); Lymphocytes # (Auto) 0.6 K/mm3 (1.2-5.4); Lymphocytes % (Auto) 4.9 % (13.4-35.0); Mean Corpuscular HGB Conc 34 % (32-34); Mean Corpuscular Volume 84 fl (84-94); Monocytes # (Auto) 0.8 K/mm3 (0.0-0.8); Platelet Count 265 K/mm3 (140-440); Red Cell Distribution Width 15.8 % (13.2-15.2)
[2018-10-02] MEDS: FLAGYL 500 MG/100 ML 500 MG/100 ML BAG IV SCH ×3 (05:30→21:51)
[2018-10-02] MEDS: MAXIPIME/NS 2 GM/100 ML 2 GM/100 ML BAG IV SCH ×3 (06:33→21:51)
[2018-10-02] MEDS: PEPCID IV SCH ×2 (09:02→21:51)
--- NOTE | 2018-10-02 10:24 | Progress Note ---
Assessment and Plan POD #4 Pt feeling well. Abd soft. dressings dry. + BS. minimal gas and fluid in osotmy bag stable probable d/c of ng in am Selected Entries 10/02/18 08:58 Temperature 99.2 F Pulse Rate 107 H Respiratory 20 Rate Blood Pressure 163/98 Laboratory Tests 10/01/18 10/02/18 04:52 04:17 WBC 14.7 H 11.4 H Hgb 10.9 L 10.9 L Hct 32.8 L 32.0 L Objective Vital Signs - 12hr 10/01/18 10/02/18 10/02/18 23:44 04:23 08:58 Temperature 99.8 F H 99.6 F 99.2 F Pulse Rate 98 H 106 H 107 H Respiratory 20 20 20 Rate Blood Pressure 158/93 147/92 163/98 O2 Sat by Pulse 93 91 92 Oximetry 10/02/18 09:08 Temperature Pulse Rate Respiratory Rate Blood Pressure O2 Sat by Pulse 94 Oximetry - Labs 10/02/18 04:17 09/30/18 04:28
--- NOTE | 2018-10-02 10:58 | Progress Note ---
Assessment and Plan Assessment and plan: Sigmoid diverticulitis with perforation status post sigmoid colectomy with end colostomy Sepsis - Patient's nothing by mouth - IV fluids - IV zosyn changed to cefepime and falgyl per culture result - WBC is trending down - Surgery and ID is on board - surgery said possible NG tube removal in the morning Sinus tach - likely due to the above - No chest pain or shortness of breath Disposition -Transfer to surgical floor History Interval history: Patient was seen and evaluated this morning, patient was not in pain or distress. Patient was asking when is going to start eating. Hospitalist Physical - Physical exam Narrative exam: Patient was in distress from pain. The patient appeared well nourished and normally developed. Vital signs as documented. Head exam is unremarkable. No scleral icterus . Neck is without jugular venous distension, thyromegaly, or carotid bruits. Lungs are clear to auscultation. Cardiac exam reveals regular rate and Rhythm. First and second heart sounds normal. No murmurs, rubs or gallops. Abdominal exam status post laparotomy and ostomy tube in place. Extremities are nonedematous and both femoral and pedal pulses are normal. CONDENSER TESTER: Alert and oriented 3. No focal weakness. - Constitutional Vitals: Temp Pulse Resp BP Pulse Ox 99.2 F 107 H 20 163/98 94 10/02/18 08:58 10/02/18 08:58 10/02/18 08:58 10/02/18 08:58 10/02/18 09:08 General appearance: Present: no acute distress, well-nourished Results - Labs CBC & Chem 7: 10/02/18 04:17 09/30/18 04:28 Labs: Laboratory Last Values WBC 11.4 K/mm3 (4.5-11.0) H 10/02/18 04:17 RBC 3.80 M/mm3 (3.65-5.03) 10/02/18 04:17 Hgb 10.9 gm/dl (11.8-15.2) L 10/02/18 04:17 Hct 32.0 % (35.5-45.6) L 10/02/18 04:17 MCV 84 fl (84-94) 10/02/18 04:17 MCH 29 pg (28-32) 10/02/18 04:17 MCHC 34 % (32-34) 10/02/18 04:17 RDW 15.8 % (13.2-15.2) H 10/02/18 04:17 Plt Count 265 K/mm3 (140-440) 10/02/18 04:17 Lymph % (Auto) 4.9 % (13.4-35.0) L 10/02/18 04:17 [place] % (Auto) 7.0 % (0.0-7.3) 10/02/18 04:17 Eos % (Auto) 3.5 % (0.0-4.3) 10/02/18 04:17 Baso % (Auto) 0.6 % (0.0-1.8) 10/02/18 04:17 Lymph # 0.6 K/mm3 (1.2-5.4) L 10/02/18 04:17 [place] # 0.8 K/mm3 (0.0-0.8) 10/02/18 04:17 Eos # 0.4 K/mm3 (0.0-0.4) 10/02/18 04:17 Baso # 0.1 K/mm3 (0.0-0.1) 10/02/18 04:17 Add Manual Diff Complete 09/28/18 11:15 Total Counted 100 09/28/18 11:15 Seg Neutrophils % 84.0 % (40.0-70.0) H 10/02/18 04:17 Seg Neuts % (Manual) 92.0 % (40.0-70.0) H 09/28/18 11:15 Band Neutrophils % 0 % 09/28/18 11:15 Lymphocytes % (Manual) 5.0 % (13.4-35.0) L 09/28/18 11:15 Reactive Lymphs % (Man) 0 % 09/28/18 11:15 Monocytes % (Manual) 3.0 % (0.0-7.3) 09/28/18 11:15 Eosinophils % (Manual) 0 % (0.0-4.3) 09/28/18 11:15 Basophils % (Manual) 0 % (0.0-1.8) 09/28/18 11:15 Metamyelocytes % 0 % 09/28/18 11:15 Myelocytes % 0 % 09/28/18 11:15 Promyelocytes % 0 % 09/28/18 11:15 Blast Cells % 0 % 09/28/18 11:15 Nucleated RBC % Not Reportable 09/28/18 11:15 Seg Neutrophils # 9.6 K/mm3 (1.8-7.7) H 10/02/18 04:17 Seg Neutrophils # Man 8.0 K/mm3 (1.8-7.7) H 09/28/18 11:15 Band Neutrophils # 0.0 K/mm3 09/28/18 11:15 Lymphocytes # (Manual) 0.4 K/mm3 (1.2-5.4) L 09/28/18 11:15 Abs React Lymphs (Man) 0.0 K/mm3 09/28/18 11:15 Monocytes # (Manual) 0.3 K/mm3 (0.0-0.8) 09/28/18 11:15 Eosinophils # (Manual) 0.0 K/mm3 (0.0-0.4) 09/28/18 11:15 Basophils # (Manual) 0.0 K/mm3 (0.0-0.1) 09/28/18 11:15 Metamyelocytes # 0.0 K/mm3 09/28/18 11:15 Myelocytes # 0.0 K/mm3 09/28/18 11:15 Promyelocytes # 0.0 K/mm3 09/28/18 11:15 Blast Cells # 0.0 K/mm3 09/28/18 11:15 WBC Morphology Not Reportable 09/28/18 11:15 Hypersegmented Neuts Not Reportable 09/28/18 11:15 Hyposegmented Neuts Not Reportable 09/28/18 11:15 Hypogranular Neuts Not Reportable 09/28/18 11:15 Smudge Cells Not Reportable 09/28/18 11:15 Toxic Granulation Not Reportable 09/28/18 11:15 Toxic Vacuolation Not Reportable 09/28/18 11:15 Dohle Bodies Not Reportable 09/28/18 11:15 Pelger-Huet Anomaly Not Reportable 09/28/18 11:15 Nkechi Rods Not Reportable 09/28/18 11:15 Platelet Estimate Consistent w auto 09/28/18 11:15 Clumped Platelets Not Reportable 09/28/18 11:15 Plt Clumps, EDTA Not Reportable 09/28/18 11:15 Large Platelets Not Reportable 09/28/18 11:15 Giant Platelets Not Reportable 09/28/18 11:15 Platelet Satelliting Not Reportable 09/28/18 11:15 Plt Morphology Comment Not Reportable 09/28/18 11:15 RBC Morphology Not Reportable 09/28/18 11:15 Dimorphic RBCs Not Reportable 09/28/18 11:15 Polychromasia Not Reportable 09/28/18 11:15 Hypochromasia Not Reportable 09/28/18 11:15 Poikilocytosis 1+ 09/28/18 11:15 Anisocytosis 1+ 09/28/18 11:15 Microcytosis Not Reportable 09/28/18 11:15 Macrocytosis Not Reportable 09/28/18 11:15 Spherocytes Not Reportable 09/28/18 11:15 Pappenheimer Bodies Not Reportable 09/28/18 11:15 Sickle Cells Not Reportable 09/28/18 11:15 Target Cells Not Reportable 09/28/18 11:15 Tear Drop Cells Not Reportable 09/28/18 11:15 Ovalocytes Few 09/28/18 11:15 Helmet Cells Not Reportable 09/28/18 11:15 [place] Bodies Not Reportable 09/28/18 11:15 [place] Rings Not Reportable 09/28/18 11:15 [place] Cells Not Reportable 09/28/18 11:15 Bite Cells Not Reportable 09/28/18 11:15 Crenated Cell Not Reportable 09/28/18 11:15 Elliptocytes Not Reportable 09/28/18 11:15 Acanthocytes (Spur) Not Reportable 09/28/18 11:15 Rouleaux Not Reportable 09/28/18 11:15 Hemoglobin C Crystals Not Reportable 09/28/18 11:15 Schistocytes Not Reportable 09/28/18 11:15 Malaria parasites Not Reportable 09/28/18 11:15 Salo Bodies Not Reportable 09/28/18 11:15 Hem Pathologist Commnt No 09/28/18 11:15 PT 15.0 Sec. (12.2-14.9) H 09/25/18 08:00 INR 1.14 (0.87-1.13) H 09/25/18 08:00 APTT 36.5 Sec. (24.2-36.6) 09/25/18 08:00 Sodium 145 mmol/L (137-145) 09/30/18 04:28 Potassium 4.5 mmol/L (3.6-5.0) 09/30/18 04:28 Chloride 108.1 mmol/L (98-107) H 09/30/18 04:28 Carbon Dioxide 27 mmol/L (22-30) 09/30/18 04:28 Anion Gap 14 mmol/L 09/30/18 04:28 BUN 9 mg/dL (9-20) 09/30/18 04:28 Creatinine 1.0 mg/dL (0.8-1.5) 09/30/18 04:28 Estimated GFR > 60 ml/min 09/30/18 04:28 BUN/Creatinine Ratio 9 % 09/30/18 04:28 Glucose 140 mg/dL (75-100) H 09/30/18 04:28 POC Glucose 114 (70-105) H 09/30/18 09:40 Lactic Acid 1.10 mmol/L (0.7-2.0) 09/28/18 21:44 Calcium 7.9 mg/dL (8.4-10.2) L 09/30/18 04:28 Magnesium 1.90 mg/dL (1.7-2.3) 09/25/18 08:00 Total Bilirubin 3.50 mg/dL (0.1-1.2) H 09/30/18 04:28 AST 33 units/L (5-40) 09/30/18 04:28 ALT 15 units/L (7-56) 09/30/18 04:28 Alkaline Phosphatase 69 units/L (35-129) 09/30/18 04:28 NT-Pro-B Natriuret Pep 160.5 pg/mL (0-900) 09/25/18 08:00 Total Protein 6.4 g/dL (6.3-8.2) 09/30/18 04:28 Albumin 2.5 g/dL (3.9-5) L 09/30/18 04:28 Albumin/Globulin Ratio 0.6 % 09/30/18 04:28 Lipase 13 units/L (13-60) 09/25/18 07:03 Urine Color [place] (Yellow) 09/25/18 07:25 Urine Turbidity Clear (Clear) 09/25/18 07:25 Urine pH 5.0 (5.0-7.0) 09/25/18 07:25 Ur Specific [place] 1.014 (1.003-1.030) 09/25/18 07:25 Urine Protein 30 mg/dl mg/dL (Negative) 09/25/18 07:25 Urine Glucose (UA) Neg mg/dL (Negative) 09/25/18 07:25 Urine Ketones Neg mg/dL (Negative) 09/25/18 07:25 Urine Blood Mod (Negative) 09/25/18 07:25 Urine Nitrite Neg (Negative) 09/25/18 07:25 Urine Bilirubin Neg (Negative) 09/25/18 07:25 Urine Urobilinogen 4.0 mg/dL (<2.0) 09/25/18 07:25 Ur Leukocyte Esterase Neg (Negative) 09/25/18 07:25 Urine WBC (Auto) 7.0 /HPF (0.0-6.0) H 09/25/18 07:25 Urine RBC (Auto) 2.0 /HPF (0.0-6.0) 09/25/18 07:25 U Epithel Cells (Auto) < 1.0 /HPF (0-13.0) 09/25/18 07:25 Blood Type O POSITIVE 09/28/18 14:20 Antibody Screen Negative 09/28/18 14:20 Nutrition/Malnutrition Assess - Dietary Evaluation Nutrition/Malnutrition Findings: Nutrition Notes Start: 09/30/18 12:11 Freq: Status: Active Protocol: Document 09/30/18 12:11 CT (Rec: 09/30/18 12:25 CT [id number]) Co-Sign 09/30/18 12:11 LP Nutrition Notes Need for Assessment generated from: LOS Initial or Follow up Brief Note Current Diagnosis Sepsis Other Pertinent Diagnosis diverticulitis Current Diet NPO Subjective/Other Information Screened for LOS. Pt asleep at time of visit and s/p colostomy yesterday. Nutrition Intervention Follow-Up By: 10/04/18 Additional Comments F/U: diet advancement, diverticulitis education
[2018-10-03] MEDS: DILAUDID IV PRN ×2 (05:42→11:15)
[2018-10-03] MEDS: MAXIPIME/NS 2 GM/100 ML 2 GM/100 ML BAG IV SCH ×3 (05:44→21:47)
[2018-10-03] MEDS: FLAGYL 500 MG/100 ML 500 MG/100 ML BAG IV SCH ×3 (05:44→22:53)
[2018-10-03] MEDS: PEPCID IV SCH ×2 (09:32→21:47)
--- NOTE | 2018-10-03 10:13 | Progress Note ---
Assessment and Plan Cultures: blood culture: no growth 09/28/2018 OR culture: E. coli, E. coli #2 A/P: 58-year-old male with tobacco abuse admitted with: #1 Sepsis secondary to intra-abdominal infection: diverticulitis with micrope rforation and associated intra-abdominal abscess: now s/p surgery on 09/28/2018. Had ex-lap, sigmoid colectomy with end colostomy creation. Given high fevers, will expand abx coverage to high dose Zosyn. #2 RAMANDEEP: resolved. Monitor. Recs: Discontinue IV Zosyn 4.5 gm q6 hrs Contiue Cefepime 2gms IV q 8h and Flagyl 500mg IV q 8 h, D3 [facility] M: [phone] O:[phone] Subjective Date of service: 10/03/18 Principal diagnosis: Acute diverticulitis and sepsis Interval history: Patient seen and examined. Denies generalized pain, fever or SOB. States that he is feeling much better today and has been up walking. Nurses notes, labs and reports reviewed, discussed with patient. Objective - Exam Narrative Exam: Physical Exam: Constitutional: Alert, cooperative. No acute distress Head, Ears, Nose: Normocephalic, atraumatic. External ears, nose normal Eyes: Conjunctivae/corneas clear. No icterus. No ptosis. Neck: Supple, no meningeal signs Oral: dentition few missing teeth, no thrush Cardiovascular: S1, S2 normal. Respiratory: Good air entry, clear to auscultation bilaterally GI: mild distension, abdomen soft, air and fluid in ostomy bag, +, drain + bowel sounds hypoactive Musculoskeletal: No pedal edema, no cyanosis. Skin: No rash or abscess Hem/Lymphatic: No palpable cervical or supraclavicular nodes. No lymphangitis Psych: Mood ok. Affect normal Neurological: Awake, alert, oriented. No gross abnormality - Constitutional Vitals: Vital Signs Temp Pulse Resp BP Pulse Ox 98.8 F 93 H 20 155/94 94 10/03/18 08:00 10/03/18 08:00 10/03/18 10:05 10/03/18 10:05 10/03/18 10:05 Temperature -Last 24 Hours Temperature 98.8 F Temperature 98.8 F Temperature 99.1 F Temperature 99.2 F - Labs CBC & Chem 7: 10/02/18 04:17 09/30/18 04:28
--- NOTE | 2018-10-03 13:17 | Progress Note ---
Assessment and Plan Assessment and plan: Sigmoid diverticulitis with perforation status post sigmoid colectomy with end colostomy Sepsis - Patient's nothing by mouth - IV fluids - IV zosyn changed to cefepime and falgyl per culture result - WBC is trending down - Surgery and ID is on board - surgery said possible NG tube removal in the morning Sinus tach - likely due to the above - No chest pain or shortness of breath Disposition -Transfer to surgical floor History Interval history: Patient was seen and evaluated this morning, patient was not in pain or distress. Patient was asking when is going to start eating. Hospitalist Physical - Physical exam Narrative exam: Patient was in distress from pain. The patient appeared well nourished and normally developed. Vital signs as documented. Head exam is unremarkable. No scleral icterus . Neck is without jugular venous distension, thyromegaly, or carotid bruits. Lungs are clear to auscultation. Cardiac exam reveals regular rate and Rhythm. First and second heart sounds normal. No murmurs, rubs or gallops. Abdominal exam status post laparotomy and ostomy tube in place. Extremities are nonedematous and both femoral and pedal pulses are normal. DENTAL FINANCIAL COORDINATOR: Alert and oriented 3. No focal weakness. - Constitutional Vitals: Temp Pulse Resp BP Pulse Ox 98.8 F 93 H 20 155/94 97 10/03/18 08:00 10/03/18 08:00 10/03/18 11:15 10/03/18 10:05 10/03/18 12:53 General appearance: Present: no acute distress, well-nourished Results - Labs CBC & Chem 7: 10/02/18 04:17 09/30/18 04:28 Labs: Laboratory Last Values WBC 11.4 K/mm3 (4.5-11.0) H 10/02/18 04:17 RBC 3.80 M/mm3 (3.65-5.03) 10/02/18 04:17 Hgb 10.9 gm/dl (11.8-15.2) L 10/02/18 04:17 Hct 32.0 % (35.5-45.6) L 10/02/18 04:17 MCV 84 fl (84-94) 10/02/18 04:17 MCH 29 pg (28-32) 10/02/18 04:17 MCHC 34 % (32-34) 10/02/18 04:17 RDW 15.8 % (13.2-15.2) H 10/02/18 04:17 Plt Count 265 K/mm3 (140-440) 10/02/18 04:17 Lymph % (Auto) 4.9 % (13.4-35.0) L 10/02/18 04:17 [place] % (Auto) 7.0 % (0.0-7.3) 10/02/18 04:17 Eos % (Auto) 3.5 % (0.0-4.3) 10/02/18 04:17 Baso % (Auto) 0.6 % (0.0-1.8) 10/02/18 04:17 Lymph # 0.6 K/mm3 (1.2-5.4) L 10/02/18 04:17 [place] # 0.8 K/mm3 (0.0-0.8) 10/02/18 04:17 Eos # 0.4 K/mm3 (0.0-0.4) 10/02/18 04:17 Baso # 0.1 K/mm3 (0.0-0.1) 10/02/18 04:17 Add Manual Diff Complete 09/28/18 11:15 Total Counted 100 09/28/18 11:15 Seg Neutrophils % 84.0 % (40.0-70.0) H 10/02/18 04:17 Seg Neuts % (Manual) 92.0 % (40.0-70.0) H 09/28/18 11:15 Band Neutrophils % 0 % 09/28/18 11:15 Lymphocytes % (Manual) 5.0 % (13.4-35.0) L 09/28/18 11:15 Reactive Lymphs % (Man) 0 % 09/28/18 11:15 Monocytes % (Manual) 3.0 % (0.0-7.3) 09/28/18 11:15 Eosinophils % (Manual) 0 % (0.0-4.3) 09/28/18 11:15 Basophils % (Manual) 0 % (0.0-1.8) 09/28/18 11:15 Metamyelocytes % 0 % 09/28/18 11:15 Myelocytes % 0 % 09/28/18 11:15 Promyelocytes % 0 % 09/28/18 11:15 Blast Cells % 0 % 09/28/18 11:15 Nucleated RBC % Not Reportable 09/28/18 11:15 Seg Neutrophils # 9.6 K/mm3 (1.8-7.7) H 10/02/18 04:17 Seg Neutrophils # Man 8.0 K/mm3 (1.8-7.7) H 09/28/18 11:15 Band Neutrophils # 0.0 K/mm3 09/28/18 11:15 Lymphocytes # (Manual) 0.4 K/mm3 (1.2-5.4) L 09/28/18 11:15 Abs React Lymphs (Man) 0.0 K/mm3 09/28/18 11:15 Monocytes # (Manual) 0.3 K/mm3 (0.0-0.8) 09/28/18 11:15 Eosinophils # (Manual) 0.0 K/mm3 (0.0-0.4) 09/28/18 11:15 Basophils # (Manual) 0.0 K/mm3 (0.0-0.1) 09/28/18 11:15 Metamyelocytes # 0.0 K/mm3 09/28/18 11:15 Myelocytes # 0.0 K/mm3 09/28/18 11:15 Promyelocytes # 0.0 K/mm3 09/28/18 11:15 Blast Cells # 0.0 K/mm3 09/28/18 11:15 WBC Morphology Not Reportable 09/28/18 11:15 Hypersegmented Neuts Not Reportable 09/28/18 11:15 Hyposegmented Neuts Not Reportable 09/28/18 11:15 Hypogranular Neuts Not Reportable 09/28/18 11:15 Smudge Cells Not Reportable 09/28/18 11:15 Toxic Granulation Not Reportable 09/28/18 11:15 Toxic Vacuolation Not Reportable 09/28/18 11:15 Dohle Bodies Not Reportable 09/28/18 11:15 Pelger-Huet Anomaly Not Reportable 09/28/18 11:15 Nkechi Rods Not Reportable 09/28/18 11:15 Platelet Estimate Consistent w auto 09/28/18 11:15 Clumped Platelets Not Reportable 09/28/18 11:15 Plt Clumps, EDTA Not Reportable 09/28/18 11:15 Large Platelets Not Reportable 09/28/18 11:15 Giant Platelets Not Reportable 09/28/18 11:15 Platelet Satelliting Not Reportable 09/28/18 11:15 Plt Morphology Comment Not Reportable 09/28/18 11:15 RBC Morphology Not Reportable 09/28/18 11:15 Dimorphic RBCs Not Reportable 09/28/18 11:15 Polychromasia Not Reportable 09/28/18 11:15 Hypochromasia Not Reportable 09/28/18 11:15 Poikilocytosis 1+ 09/28/18 11:15 Anisocytosis 1+ 09/28/18 11:15 Microcytosis Not Reportable 09/28/18 11:15 Macrocytosis Not Reportable 09/28/18 11:15 Spherocytes Not Reportable 09/28/18 11:15 Pappenheimer Bodies Not Reportable 09/28/18 11:15 Sickle Cells Not Reportable 09/28/18 11:15 Target Cells Not Reportable 09/28/18 11:15 Tear Drop Cells Not Reportable 09/28/18 11:15 Ovalocytes Few 09/28/18 11:15 Helmet Cells Not Reportable 09/28/18 11:15 [place] Bodies Not Reportable 09/28/18 11:15 [place] Rings Not Reportable 09/28/18 11:15 [place] Cells Not Reportable 09/28/18 11:15 Bite Cells Not Reportable 09/28/18 11:15 Crenated Cell Not Reportable 09/28/18 11:15 Elliptocytes Not Reportable 09/28/18 11:15 Acanthocytes (Spur) Not Reportable 09/28/18 11:15 Rouleaux Not Reportable 09/28/18 11:15 Hemoglobin C Crystals Not Reportable 09/28/18 11:15 Schistocytes Not Reportable 09/28/18 11:15 Malaria parasites Not Reportable 09/28/18 11:15 Salo Bodies Not Reportable 09/28/18 11:15 Hem Pathologist Commnt No 09/28/18 11:15 PT 15.0 Sec. (12.2-14.9) H 09/25/18 08:00 INR 1.14 (0.87-1.13) H 09/25/18 08:00 APTT 36.5 Sec. (24.2-36.6) 09/25/18 08:00 Sodium 145 mmol/L (137-145) 09/30/18 04:28 Potassium 4.5 mmol/L (3.6-5.0) 09/30/18 04:28 Chloride 108.1 mmol/L (98-107) H 09/30/18 04:28 Carbon Dioxide 27 mmol/L (22-30) 09/30/18 04:28 Anion Gap 14 mmol/L 09/30/18 04:28 BUN 9 mg/dL (9-20) 09/30/18 04:28 Creatinine 1.0 mg/dL (0.8-1.5) 09/30/18 04:28 Estimated GFR > 60 ml/min 09/30/18 04:28 BUN/Creatinine Ratio 9 % 09/30/18 04:28 Glucose 140 mg/dL (75-100) H 09/30/18 04:28 POC Glucose 114 (70-105) H 09/30/18 09:40 Lactic Acid 1.10 mmol/L (0.7-2.0) 09/28/18 21:44 Calcium 7.9 mg/dL (8.4-10.2) L 09/30/18 04:28 Magnesium 1.90 mg/dL (1.7-2.3) 09/25/18 08:00 Total Bilirubin 3.50 mg/dL (0.1-1.2) H 09/30/18 04:28 AST 33 units/L (5-40) 09/30/18 04:28 ALT 15 units/L (7-56) 09/30/18 04:28 Alkaline Phosphatase 69 units/L (35-129) 09/30/18 04:28 NT-Pro-B Natriuret Pep 160.5 pg/mL (0-900) 09/25/18 08:00 Total Protein 6.4 g/dL (6.3-8.2) 09/30/18 04:28 Albumin 2.5 g/dL (3.9-5) L 09/30/18 04:28 Albumin/Globulin Ratio 0.6 % 09/30/18 04:28 Lipase 13 units/L (13-60) 09/25/18 07:03 Urine Color [place] (Yellow) 09/25/18 07:25 Urine Turbidity Clear (Clear) 09/25/18 07:25 Urine pH 5.0 (5.0-7.0) 09/25/18 07:25 Ur Specific [place] 1.014 (1.003-1.030) 09/25/18 07:25 Urine Protein 30 mg/dl mg/dL (Negative) 09/25/18 07:25 Urine Glucose (UA) Neg mg/dL (Negative) 09/25/18 07:25 Urine Ketones Neg mg/dL (Negative) 09/25/18 07:25 Urine Blood Mod (Negative) 09/25/18 07:25 Urine Nitrite Neg (Negative) 09/25/18 07:25 Urine Bilirubin Neg (Negative) 09/25/18 07:25 Urine Urobilinogen 4.0 mg/dL (<2.0) 09/25/18 07:25 Ur Leukocyte Esterase Neg (Negative) 09/25/18 07:25 Urine WBC (Auto) 7.0 /HPF (0.0-6.0) H 09/25/18 07:25 Urine RBC (Auto) 2.0 /HPF (0.0-6.0) 09/25/18 07:25 U Epithel Cells (Auto) < 1.0 /HPF (0-13.0) 09/25/18 07:25 Blood Type O POSITIVE 09/28/18 14:20 Antibody Screen Negative 09/28/18 14:20 Nutrition/Malnutrition Assess - Dietary Evaluation Nutrition/Malnutrition Findings: Nutrition Notes Start: 09/30/18 12:11 Freq: Status: Active Protocol: Document 09/30/18 12:11 CT (Rec: 09/30/18 12:25 CT [id number]) Co-Sign 09/30/18 12:11 LP Nutrition Notes Need for Assessment generated from: LOS Initial or Follow up Brief Note Current Diagnosis Sepsis Other Pertinent Diagnosis diverticulitis Current Diet NPO Subjective/Other Information Screened for LOS. Pt asleep at time of visit and s/p colostomy yesterday. Nutrition Intervention Follow-Up By: 10/04/18 Additional Comments F/U: diet advancement, diverticulitis education
[2018-10-03] MEDS ORDERED: NORCO 5/325 PO PRN (13:21)
--- NOTE | 2018-10-03 13:47 | Progress Note ---
Assessment and Plan POD # 5 Pt feeling well. no compl Abd soft. air and fluid noted in ostomy bag. +BS surgically stable d/c ng ice chips and po meds today Selected Entries 10/03/18 12:06 Temperature 98.9 F Pulse Rate 98 H Blood Pressure 148/100 Objective Vital Signs - 12hr 10/03/18 10/03/18 10/03/18 03:48 05:42 08:00 Temperature 98.8 F 98.8 F Pulse Rate 97 H 93 H Respiratory 18 20 20 Rate Blood Pressure 127/96 Blood Pressure 159/101 [Right] O2 Sat by Pulse 97 97 Oximetry 10/03/18 10/03/18 10/03/18 10:05 11:15 12:06 Temperature 98.9 F Pulse Rate 98 H Respiratory 20 20 20 Rate Blood Pressure 148/100 Blood Pressure 155/94 [Right] O2 Sat by Pulse 94 97 Oximetry 10/03/18 12:53 Temperature Pulse Rate Respiratory Rate Blood Pressure Blood Pressure [Right] O2 Sat by Pulse 97 Oximetry - Labs 10/02/18 04:17 09/30/18 04:28
--- NOTE | 2018-10-03 14:16 | XRay Report ---
FINAL REPORT EXAM: XR ABDOMEN 1V AP HISTORY: NGT placement TECHNIQUE: Supine views of the abdomen PRIORS: KUB abdomen 09/29/2018 FINDINGS: Nasogastric tube tip and side port terminate in the stomach. The bowel gas pattern is nonspecific. Residual oral contrast is present in the colon. No free air is identified. Soft tissues have no evidence for mass shadows or calcifications. There is vertical row of midline skin minnie, unchanged. The bony structures bilateral pedicle screws at L5-S1, unchanged. IMPRESSION: Nasogastric tube terminating in the stomach.
[2018-10-03] MEDS: D5/0.45NS 1,000 ML IV SCH (14:18)
[2018-10-03] MEDS ORDERED: DILAUDID IV ONE (21:57)
[2018-10-03] MEDS ORDERED: NORCO 5/325 PO ONE (21:58)
[2018-10-04] MEDS: D5/0.45NS 1,000 ML IV SCH (04:51)
[2018-10-04] MEDS: NORCO 5/325 PO PRN ×3 (04:53→18:29)
[2018-10-04] MEDS: MAXIPIME/NS 2 GM/100 ML 2 GM/100 ML BAG IV SCH (05:00)
[2018-10-04] MEDS: FLAGYL 500 MG/100 ML 500 MG/100 ML BAG IV SCH (06:09)
[2018-10-04] MEDS: PEPCID IV SCH ×3 (08:33→21:25)
--- NOTE | 2018-10-04 10:11 | Progress Note ---
Assessment and Plan POD # 6 Pt feeling well. chuckie d/c of ng without incident Abd soft, + BS stable begin cl liq diet needs home health arrangements for local care Selected Entries 10/04/18 04:29 Temperature 98.4 F Pulse Rate 86 Respiratory 20 Rate Blood Pressure 148/98 Objective Vital Signs - 12hr 10/04/18 10/04/18 00:32 04:29 Temperature 97.4 F L 98.4 F Pulse Rate 86 86 Respiratory 20 20 Rate Blood Pressure 129/88 148/98 O2 Sat by Pulse 95 96 Oximetry - Labs 10/02/18 04:17 09/30/18 04:28
--- NOTE | 2018-10-04 10:17 | Progress Note ---
Assessment and Plan Cultures: blood culture: no growth 09/28/2018 OR culture: E. coli, E. coli #2 A/P: 58-year-old male with tobacco abuse admitted with: #1 Sepsis resolved, still leukocytoisis but trending down, secondary to intra- abdominal infection: diverticulitis with microperforation and associated intra- abdominal abscess: now s/p surgery on 09/28/2018. Had ex-lap, sigmoid colectomy with end colostomy creation. Given high fevers, will expand abx coverage to Cefepime and Flagyl #2 RAMANDEEP: resolved. Monitor. Recs: Discontinue Cefepime 2gms IV q 8h and Flagyl 500mg IV q 8 needs home health arrangements for local wound care Will switch to Levofloxacin and Flagyl PO for 3 more days ending 10/06/18 ID is signing off [facility] M: [id number] O:[phone] Subjective Date of service: 10/04/18 Principal diagnosis: Acute diverticulitis and sepsis Interval history: Patient seen and examined. Denies generalized pain, fever or SOB. States that he is feeling better today, tolerating clears. Family at bedside. Nurses notes, labs and reports reviewed, discussed with patient. Objective - Exam Narrative Exam: Physical Exam: Constitutional: Alert, cooperative. No acute distress Head, Ears, Nose: Normocephalic, atraumatic. External ears, nose normal Eyes: Conjunctivae/corneas clear. No icterus. No ptosis. Neck: Supple, no meningeal signs Oral: dentition few missing teeth, no thrush Cardiovascular: S1, S2 normal. Respiratory: Good air entry, clear to auscultation bilaterally GI: mild distension, abdomen soft, air and minimal fluid in ostomy bag, +, drain + bowel sounds hypoactive Musculoskeletal: No pedal edema, no cyanosis. Skin: No rash or abscess Hem/Lymphatic: No palpable cervical or supraclavicular nodes. No lymphangitis Psych: Mood ok. Affect normal Neurological: Awake, alert, oriented. No gross abnormality - Constitutional Vitals: Vital Signs Temp Pulse Resp BP Pulse Ox 98.4 F 86 20 148/98 96 10/04/18 04:29 10/04/18 04:29 10/04/18 04:29 10/04/18 04:29 10/04/18 04:29 Temperature -Last 24 Hours Temperature 98.4 F Temperature 97.4 F Temperature 99.2 F Temperature 98.0 F Temperature 98.9 F - Labs CBC & Chem 7: 10/02/18 04:17 09/30/18 04:28
--- NOTE | 2018-10-04 14:20 | Progress Note ---
Assessment and Plan Assessment and plan: This is a 50-year-old male with abdominal pain who has just been recently placed in the bed. He tells me he's had left lower quadrant pain for the past approximately 3 days. He is a bit vague as to the acuity of onset. He states it's been progressive over the last 3 days and have bring his ability to walk. This is his first medical evaluation. The pain is severe. He is found to have an exquisitely tender abdomen. He states he's had no prior abdominal surgery however examination revealed presence of a previous inguinal hernia repair. He states he's had a lumbar fusion. On admission patient was seen by surgery and underwent sigmoid colectomy with end colostomy with melody pouch and partial omentectomy Sigmoid diverticulitis with perforation status post sigmoid colectomy with end colostomy - POD #6. - NGT now removed. - Per surgery, ok with ice chips Sepsis - IV fluids - IV zosyn changed to cefepime and flagyl per ID - Continue to follow culture - WBC is trending down - Surgery and ID is on board - surgery said possible NG tube removal in the morning Sinus tach - likely due to the above - No chest pain or shortness of breath RAMANDEEP secondary to Vasomotor Improved DVT/GI prophy Plan discussed with patient in detail. History Interval history: Patient is seen today for: Abdominal pain status post ostomy Seen and examined at bedside; 24hour events reviewed; nursing staff ; no adverse overnight events reported to me; Denies any chest pain, nausea, vomiting, diarrhea No fever noted blood pressure controlled Hospitalist Physical - Physical exam Narrative exam: VITAL SIGNS: Reviewed. GENERAL: The patient appeared well nourished and normally developed. Vital signs as documented. HEAD: No signs of head trauma. EYES: Pupils are equal. Extraocular motions intact. EARS: Hearing grossly intact. MOUTH: Oropharynx is normal. NECK: No adenopathy, no JVD. CHEST: Chest with clear breath sounds bilaterally. No wheezes, rales, or rhonchi. CARDIAC: Regular rate and rhythm. S1 and S2, without murmurs, gallops, or rubs. VASCULAR: No Edema. Peripheral pulses normal and equal in all extremities. ABDOMEN: Soft, colostomy and ostomy. No rebound or guarding, and no masses palpated. Bowel Sounds normal. MUSCULOSKELETAL: Good range of motion of all major joints. Extremities without clubbing, cyanosis or edema. NEUROLOGIC EXAM: Alert and oriented x 3. No focal sensory or strength deficits. Speech normal. Follows commands. PSYCHIATRIC: Mood normal. SKIN: No rash or lesions. - Constitutional Vitals: Temp Pulse Resp BP Pulse Ox 98.4 F 86 18 157/103 98 10/04/18 07:16 10/04/18 07:17 10/04/18 07:16 10/04/18 07:16 10/04/18 07:17 General appearance: Present: no acute distress, well-nourished Results - Labs CBC & Chem 7: 10/02/18 04:17 09/30/18 04:28 Labs: Laboratory Last Values WBC 11.4 K/mm3 (4.5-11.0) H 10/02/18 04:17 RBC 3.80 M/mm3 (3.65-5.03) 10/02/18 04:17 Hgb 10.9 gm/dl (11.8-15.2) L 10/02/18 04:17 Hct 32.0 % (35.5-45.6) L 10/02/18 04:17 MCV 84 fl (84-94) 10/02/18 04:17 MCH 29 pg (28-32) 10/02/18 04:17 MCHC 34 % (32-34) 10/02/18 04:17 RDW 15.8 % (13.2-15.2) H 10/02/18 04:17 Plt Count 265 K/mm3 (140-440) 10/02/18 04:17 Lymph % (Auto) 4.9 % (13.4-35.0) L 10/02/18 04:17 [place] % (Auto) 7.0 % (0.0-7.3) 10/02/18 04:17 Eos % (Auto) 3.5 % (0.0-4.3) 10/02/18 04:17 Baso % (Auto) 0.6 % (0.0-1.8) 10/02/18 04:17 Lymph # 0.6 K/mm3 (1.2-5.4) L 10/02/18 04:17 [place] # 0.8 K/mm3 (0.0-0.8) 10/02/18 04:17 Eos # 0.4 K/mm3 (0.0-0.4) 10/02/18 04:17 Baso # 0.1 K/mm3 (0.0-0.1) 10/02/18 04:17 Add Manual Diff Complete 09/28/18 11:15 Total Counted 100 09/28/18 11:15 Seg Neutrophils % 84.0 % (40.0-70.0) H 10/02/18 04:17 Seg Neuts % (Manual) 92.0 % (40.0-70.0) H 09/28/18 11:15 Band Neutrophils % 0 % 09/28/18 11:15 Lymphocytes % (Manual) 5.0 % (13.4-35.0) L 09/28/18 11:15 Reactive Lymphs % (Man) 0 % 09/28/18 11:15 Monocytes % (Manual) 3.0 % (0.0-7.3) 09/28/18 11:15 Eosinophils % (Manual) 0 % (0.0-4.3) 09/28/18 11:15 Basophils % (Manual) 0 % (0.0-1.8) 09/28/18 11:15 Metamyelocytes % 0 % 09/28/18 11:15 Myelocytes % 0 % 09/28/18 11:15 Promyelocytes % 0 % 09/28/18 11:15 Blast Cells % 0 % 09/28/18 11:15 Nucleated RBC % Not Reportable 09/28/18 11:15 Seg Neutrophils # 9.6 K/mm3 (1.8-7.7) H 10/02/18 04:17 Seg Neutrophils # Man 8.0 K/mm3 (1.8-7.7) H 09/28/18 11:15 Band Neutrophils # 0.0 K/mm3 09/28/18 11:15 Lymphocytes # (Manual) 0.4 K/mm3 (1.2-5.4) L 09/28/18 11:15 Abs React Lymphs (Man) 0.0 K/mm3 09/28/18 11:15 Monocytes # (Manual) 0.3 K/mm3 (0.0-0.8) 09/28/18 11:15 Eosinophils # (Manual) 0.0 K/mm3 (0.0-0.4) 09/28/18 11:15 Basophils # (Manual) 0.0 K/mm3 (0.0-0.1) 09/28/18 11:15 Metamyelocytes # 0.0 K/mm3 09/28/18 11:15 Myelocytes # 0.0 K/mm3 09/28/18 11:15 Promyelocytes # 0.0 K/mm3 09/28/18 11:15 Blast Cells # 0.0 K/mm3 09/28/18 11:15 WBC Morphology Not Reportable 09/28/18 11:15 Hypersegmented Neuts Not Reportable 09/28/18 11:15 Hyposegmented Neuts Not Reportable 09/28/18 11:15 Hypogranular Neuts Not Reportable 09/28/18 11:15 Smudge Cells Not Reportable 09/28/18 11:15 Toxic Granulation Not Reportable 09/28/18 11:15 Toxic Vacuolation Not Reportable 09/28/18 11:15 Dohle Bodies Not Reportable 09/28/18 11:15 Pelger-Huet Anomaly Not Reportable 09/28/18 11:15 Nkechi Rods Not Reportable 09/28/18 11:15 Platelet Estimate Consistent w auto 09/28/18 11:15 Clumped Platelets Not Reportable 09/28/18 11:15 Plt Clumps, EDTA Not Reportable 09/28/18 11:15 Large Platelets Not Reportable 09/28/18 11:15 Giant Platelets Not Reportable 09/28/18 11:15 Platelet Satelliting Not Reportable 09/28/18 11:15 Plt Morphology Comment Not Reportable 09/28/18 11:15 RBC Morphology Not Reportable 09/28/18 11:15 Dimorphic RBCs Not Reportable 09/28/18 11:15 Polychromasia Not Reportable 09/28/18 11:15 Hypochromasia Not Reportable 09/28/18 11:15 Poikilocytosis 1+ 09/28/18 11:15 Anisocytosis 1+ 09/28/18 11:15 Microcytosis Not Reportable 09/28/18 11:15 Macrocytosis Not Reportable 09/28/18 11:15 Spherocytes Not Reportable 09/28/18 11:15 Pappenheimer Bodies Not Reportable 09/28/18 11:15 Sickle Cells Not Reportable 09/28/18 11:15 Target Cells Not Reportable 09/28/18 11:15 Tear Drop Cells Not Reportable 09/28/18 11:15 Ovalocytes Few 09/28/18 11:15 Helmet Cells Not Reportable 09/28/18 11:[address] [place] Bodies Not Reportable 09/28/18 11:15 [place] Rings Not Reportable 09/28/18 11:15 [place] Cells Not Reportable 09/28/18 11:15 Bite Cells Not Reportable 09/28/18 11:15 Crenated Cell Not Reportable 09/28/18 11:15 Elliptocytes Not Reportable 09/28/18 11:15 Acanthocytes (Spur) Not Reportable 09/28/18 11:15 Rouleaux Not Reportable 09/28/18 11:15 Hemoglobin C Crystals Not Reportable 09/28/18 11:15 Schistocytes Not Reportable 09/28/18 11:15 Malaria parasites Not Reportable 09/28/18 11:15 Salo Bodies Not Reportable 09/28/18 11:15 Hem Pathologist Commnt No 09/28/18 11:15 PT 15.0 Sec. (12.2-14.9) H 09/25/18 08:00 INR 1.14 (0.87-1.13) H 09/25/18 08:00 APTT 36.5 Sec. (24.2-36.6) 09/25/18 08:00 Sodium 145 mmol/L (137-145) 09/30/18 04:28 Potassium 4.5 mmol/L (3.6-5.0) 09/30/18 04:28 Chloride 108.1 mmol/L (98-107) H 09/30/18 04:28 Carbon Dioxide 27 mmol/L (22-30) 09/30/18 04:28 Anion Gap 14 mmol/L 09/30/18 04:28 BUN 9 mg/dL (9-20) 09/30/18 04:28 Creatinine 1.0 mg/dL (0.8-1.5) 09/30/18 04:28 Estimated GFR > 60 ml/min 09/30/18 04:28 BUN/Creatinine Ratio 9 % 09/30/18 04:28 Glucose 140 mg/dL (75-100) H 09/30/18 04:28 POC Glucose 114 (70-105) H 09/30/18 09:40 Lactic Acid 1.10 mmol/L (0.7-2.0) 09/28/18 21:44 Calcium 7.9 mg/dL (8.4-10.2) L 09/30/18 04:28 Magnesium 1.90 mg/dL (1.7-2.3) 09/25/18 08:00 Total Bilirubin 3.50 mg/dL (0.1-1.2) H 09/30/18 04:28 AST 33 units/L (5-40) 09/30/18 04:28 ALT 15 units/L (7-56) 09/30/18 04:28 Alkaline Phosphatase 69 units/L (35-129) 09/30/18 04:28 NT-Pro-B Natriuret Pep 160.5 pg/mL (0-900) 09/25/18 08:00 Total Protein 6.4 g/dL (6.3-8.2) 09/30/18 04:28 Albumin 2.5 g/dL (3.9-5) L 09/30/18 04:28 Albumin/Globulin Ratio 0.6 % 09/30/18 04:28 Lipase 13 units/L (13-60) 09/25/18 07:03 Urine Color [place] (Yellow) 09/25/18 07:25 Urine Turbidity Clear (Clear) 09/25/18 07:25 Urine pH 5.0 (5.0-7.0) 09/25/18 07:25 Ur Specific [place] 1.014 (1.003-1.030) 09/25/18 07:25 Urine Protein 30 mg/dl mg/dL (Negative) 09/25/18 07:25 Urine Glucose (UA) Neg mg/dL (Negative) 09/25/18 07:25 Urine Ketones Neg mg/dL (Negative) 09/25/18 07:25 Urine Blood Mod (Negative) 09/25/18 07:25 Urine Nitrite Neg (Negative) 09/25/18 07:25 Urine Bilirubin Neg (Negative) 09/25/18 07:25 Urine Urobilinogen 4.0 mg/dL (<2.0) 09/25/18 07:25 Ur Leukocyte Esterase Neg (Negative) 09/25/18 07:25 Urine WBC (Auto) 7.0 /HPF (0.0-6.0) H 09/25/18 07:25 Urine RBC (Auto) 2.0 /HPF (0.0-6.0) 09/25/18 07:25 U Epithel Cells (Auto) < 1.0 /HPF (0-13.0) 09/25/18 07:25 Blood Type O POSITIVE 09/28/18 14:20 Antibody Screen Negative 09/28/18 14:20 Nutrition/Malnutrition Assess - Dietary Evaluation Nutrition/Malnutrition Findings: Nutrition Notes Start: 09/30/18 12:11 Freq: Status: Active Protocol: Document 09/30/18 12:11 CT (Rec: 09/30/18 12:25 CT [id number]) Co-Sign 09/30/18 12:11 LP Nutrition Notes Need for Assessment generated from: LOS Initial or Follow up Brief Note Current Diagnosis Sepsis Other Pertinent Diagnosis diverticulitis Current Diet NPO Subjective/Other Information Screened for LOS. Pt asleep at time of visit and s/p colostomy yesterday. Nutrition Intervention Follow-Up By: 10/04/18 Additional Comments F/U: diet advancement, diverticulitis education
[2018-10-04] MEDS: FLAGYL PO SCH ×2 (15:33→21:25)
[2018-10-04] MEDS: LEVAQUIN PO SCH (15:34)
[2018-10-05] MEDS: NORCO 5/325 PO PRN ×3 (04:34→21:02)
[2018-10-05] MEDS: FLAGYL PO SCH ×3 (05:11→21:02)
[2018-10-05] MEDS: LEVAQUIN PO SCH (10:44)
[2018-10-05] MEDS: PEPCID PO SCH ×2 (10:44→21:02)
--- NOTE | 2018-10-05 11:53 | Progress Note ---
Assessment and Plan POD # 7 Pt feeling well without compl. chuckie cl liq Abd soft, wds clean and dry. incision healing well stable full liq diet d/c minnie in am will d/c drain in am Selected Entries 10/05/18 08:05 Temperature 98.4 F Pulse Rate 82 Respiratory 15 Rate Blood Pressure 135/93 Objective Vital Signs - 12hr 10/05/18 10/05/18 10/05/18 04:34 05:04 08:05 Temperature 98.6 F 98.4 F Pulse Rate 95 H 82 Respiratory 18 20 15 Rate Blood Pressure 136/97 135/93 O2 Sat by Pulse 95 97 Oximetry - Labs 10/02/18 04:17 09/30/18 04:28
--- NOTE | 2018-10-05 17:27 | Progress Note ---
Assessment and Plan Assessment and plan: This is a 50-year-old male with abdominal pain who has just been recently placed in the bed. He tells me he's had left lower quadrant pain for the past approximately 3 days. He is a bit vague as to the acuity of onset. He states it's been progressive over the last 3 days and have bring his ability to walk. This is his first medical evaluation. The pain is severe. He is found to have an exquisitely tender abdomen. He states he's had no prior abdominal surgery however examination revealed presence of a previous inguinal hernia repair. He states he's had a lumbar fusion. On admission patient was seen by surgery and underwent sigmoid colectomy with end colostomy with melody pouch and partial omentectomy Sigmoid diverticulitis with perforation status post sigmoid colectomy with end colostomy - POD #7 - NGT now removed. - Per surgery, ok with ice chips Sepsis - IV fluids - IV zosyn changed to cefepime and flagyl per ID - Continue to follow culture - WBC is trending down - Surgery and ID is on board - surgery said possible NG tube removal in the morning Sinus tach - likely due to the above - No chest pain or shortness of breath RAMANDEEP secondary to Vasomotor Improved DVT/GI prophy Plan discussed with patient in detail. Anticipate discharge in AM History Interval history: Patient is seen today for: Abdominal pain status post ostomy Seen and examined at bedside; 24hour events reviewed; nursing staff ; no adverse overnight events reported to me; Denies any chest pain, nausea, vomiting, diarrhea No fever noted blood pressure controlled Hospitalist Physical - Physical exam Narrative exam: VITAL SIGNS: Reviewed. GENERAL: The patient appeared well nourished and normally developed. Vital signs as documented. HEAD: No signs of head trauma. EYES: Pupils are equal. Extraocular motions intact. EARS: Hearing grossly intact. MOUTH: Oropharynx is normal. NECK: No adenopathy, no JVD. CHEST: Chest with clear breath sounds bilaterally. No wheezes, rales, or rhonchi. CARDIAC: Regular rate and rhythm. S1 and S2, without murmurs, gallops, or rubs. VASCULAR: No Edema. Peripheral pulses normal and equal in all extremities. ABDOMEN: Soft, colostomy and ostomy. No rebound or guarding, and no masses palpated. Bowel Sounds normal. MUSCULOSKELETAL: Good range of motion of all major joints. Extremities without clubbing, cyanosis or edema. NEUROLOGIC EXAM: Alert and oriented x 3. No focal sensory or strength deficits. Speech normal. Follows commands. PSYCHIATRIC: Mood normal. SKIN: No rash or lesions. - Constitutional Vitals: Temp Pulse Resp BP Pulse Ox 98.4 F 82 15 135/93 97 10/05/18 08:05 10/05/18 08:05 10/05/18 08:05 10/05/18 08:05 10/05/18 11:35 General appearance: Present: no acute distress, well-nourished Results - Labs CBC & Chem 7: 10/02/18 04:17 09/30/18 04:28 Labs: Laboratory Last Values WBC 11.4 K/mm3 (4.5-11.0) H 10/02/18 04:17 RBC 3.80 M/mm3 (3.65-5.03) 10/02/18 04:17 Hgb 10.9 gm/dl (11.8-15.2) L 10/02/18 04:17 Hct 32.0 % (35.5-45.6) L 10/02/18 04:17 MCV 84 fl (84-94) 10/02/18 04:17 MCH 29 pg (28-32) 10/02/18 04:17 MCHC 34 % (32-34) 10/02/18 04:17 RDW 15.8 % (13.2-15.2) H 10/02/18 04:17 Plt Count 265 K/mm3 (140-440) 10/02/18 04:17 Lymph % (Auto) 4.9 % (13.4-35.0) L 10/02/18 04:17 [place] % (Auto) 7.0 % (0.0-7.3) 10/02/18 04:17 Eos % (Auto) 3.5 % (0.0-4.3) 10/02/18 04:17 Baso % (Auto) 0.6 % (0.0-1.8) 10/02/18 04:17 Lymph # 0.6 K/mm3 (1.2-5.4) L 10/02/18 04:17 [place] # 0.8 K/mm3 (0.0-0.8) 10/02/18 04:17 Eos # 0.4 K/mm3 (0.0-0.4) 10/02/18 04:17 Baso # 0.1 K/mm3 (0.0-0.1) 10/02/18 04:17 Add Manual Diff Complete 09/28/18 11:15 Total Counted 100 09/28/18 11:15 Seg Neutrophils % 84.0 % (40.0-70.0) H 10/02/18 04:17 Seg Neuts % (Manual) 92.0 % (40.0-70.0) H 09/28/18 11:15 Band Neutrophils % 0 % 09/28/18 11:15 Lymphocytes % (Manual) 5.0 % (13.4-35.0) L 09/28/18 11:15 Reactive Lymphs % (Man) 0 % 09/28/18 11:15 Monocytes % (Manual) 3.0 % (0.0-7.3) 09/28/18 11:15 Eosinophils % (Manual) 0 % (0.0-4.3) 09/28/18 11:15 Basophils % (Manual) 0 % (0.0-1.8) 09/28/18 11:15 Metamyelocytes % 0 % 09/28/18 11:15 Myelocytes % 0 % 09/28/18 11:15 Promyelocytes % 0 % 09/28/18 11:15 Blast Cells % 0 % 09/28/18 11:15 Nucleated RBC % Not Reportable 09/28/18 11:15 Seg Neutrophils # 9.6 K/mm3 (1.8-7.7) H 10/02/18 04:17 Seg Neutrophils # Man 8.0 K/mm3 (1.8-7.7) H 09/28/18 11:15 Band Neutrophils # 0.0 K/mm3 09/28/18 11:15 Lymphocytes # (Manual) 0.4 K/mm3 (1.2-5.4) L 09/28/18 11:15 Abs React Lymphs (Man) 0.0 K/mm3 09/28/18 11:15 Monocytes # (Manual) 0.3 K/mm3 (0.0-0.8) 09/28/18 11:15 Eosinophils # (Manual) 0.0 K/mm3 (0.0-0.4) 09/28/18 11:15 Basophils # (Manual) 0.0 K/mm3 (0.0-0.1) 09/28/18 11:15 Metamyelocytes # 0.0 K/mm3 09/28/18 11:15 Myelocytes # 0.0 K/mm3 09/28/18 11:15 Promyelocytes # 0.0 K/mm3 09/28/18 11:15 Blast Cells # 0.0 K/mm3 09/28/18 11:15 WBC Morphology Not Reportable 09/28/18 11:15 Hypersegmented Neuts Not Reportable 09/28/18 11:15 Hyposegmented Neuts Not Reportable 09/28/18 11:15 Hypogranular Neuts Not Reportable 09/28/18 11:15 Smudge Cells Not Reportable 09/28/18 11:15 Toxic Granulation Not Reportable 09/28/18 11:15 Toxic Vacuolation Not Reportable 09/28/18 11:15 Dohle Bodies Not Reportable 09/28/18 11:15 Pelger-Huet Anomaly Not Reportable 09/28/18 11:15 Nkechi Rods Not Reportable 09/28/18 11:15 Platelet Estimate Consistent w auto 09/28/18 11:15 Clumped Platelets Not Reportable 09/28/18 11:15 Plt Clumps, EDTA Not Reportable 09/28/18 11:15 Large Platelets Not Reportable 09/28/18 11:15 Giant Platelets Not Reportable 09/28/18 11:15 Platelet Satelliting Not Reportable 09/28/18 11:15 Plt Morphology Comment Not Reportable 09/28/18 11:15 RBC Morphology Not Reportable 09/28/18 11:15 Dimorphic RBCs Not Reportable 09/28/18 11:15 Polychromasia Not Reportable 09/28/18 11:15 Hypochromasia Not Reportable 09/28/18 11:15 Poikilocytosis 1+ 09/28/18 11:15 Anisocytosis 1+ 09/28/18 11:15 Microcytosis Not Reportable 09/28/18 11:15 Macrocytosis Not Reportable 09/28/18 11:15 Spherocytes Not Reportable 09/28/18 11:15 Pappenheimer Bodies Not Reportable 09/28/18 11:15 Sickle Cells Not Reportable 09/28/18 11:15 Target Cells Not Reportable 09/28/18 11:15 Tear Drop Cells Not Reportable 09/28/18 11:15 Ovalocytes Few 09/28/18 11:15 Helmet Cells Not Reportable 09/28/18 11:15 [place] Bodies Not Reportable 09/28/18 11:15 [place] Rings Not Reportable 09/28/18 11:15 Dolores Cells Not Reportable 09/28/18 11:15 Bite Cells Not Reportable 09/28/18 11:15 Crenated Cell Not Reportable 09/28/18 11:15 Elliptocytes Not Reportable 09/28/18 11:15 Acanthocytes (Spur) Not Reportable 09/28/18 11:15 Rouleaux Not Reportable 09/28/18 11:15 Hemoglobin C Crystals Not Reportable 09/28/18 11:15 Schistocytes Not Reportable 09/28/18 11:15 Malaria parasites Not Reportable 09/28/18 11:15 Salo Bodies Not Reportable 09/28/18 11:15 Hem Pathologist Commnt No 09/28/18 11:15 PT 15.0 Sec. (12.2-14.9) H 09/25/18 08:00 INR 1.14 (0.87-1.13) H 09/25/18 08:00 APTT 36.5 Sec. (24.2-36.6) 09/25/18 08:00 Sodium 145 mmol/L (137-145) 09/30/18 04:28 Potassium 4.5 mmol/L (3.6-5.0) 09/30/18 04:28 Chloride 108.1 mmol/L (98-107) H 09/30/18 04:28 Carbon Dioxide 27 mmol/L (22-30) 09/30/18 04:28 Anion Gap 14 mmol/L 09/30/18 04:28 BUN 9 mg/dL (9-20) 09/30/18 04:28 Creatinine 1.0 mg/dL (0.8-1.5) 09/30/18 04:28 Estimated GFR > 60 ml/min 09/30/18 04:28 BUN/Creatinine Ratio 9 % 09/30/18 04:28 Glucose 140 mg/dL (75-100) H 09/30/18 04:28 POC Glucose 114 (70-105) H 09/30/18 09:40 Lactic Acid 1.10 mmol/L (0.7-2.0) 09/28/18 21:44 Calcium 7.9 mg/dL (8.4-10.2) L 09/30/18 04:28 Magnesium 1.90 mg/dL (1.7-2.3) 09/25/18 08:00 Total Bilirubin 3.50 mg/dL (0.1-1.2) H 09/30/18 04:28 AST 33 units/L (5-40) 09/30/18 04:28 ALT 15 units/L (7-56) 09/30/18 04:28 Alkaline Phosphatase 69 units/L (35-129) 09/30/18 04:28 NT-Pro-B Natriuret Pep 160.5 pg/mL (0-900) 09/25/18 08:00 Total Protein 6.4 g/dL (6.3-8.2) 09/30/18 04:28 Albumin 2.5 g/dL (3.9-5) L 09/30/18 04:28 Albumin/Globulin Ratio 0.6 % 09/30/18 04:28 Lipase 13 units/L (13-60) 09/25/18 07:03 Urine Color Tania (Yellow) 09/25/18 07:25 Urine Turbidity Clear (Clear) 09/25/18 07:25 Urine pH 5.0 (5.0-7.0) 09/25/18 07:25 Ur Specific [place] 1.014 (1.003-1.030) 09/25/18 07:25 Urine Protein 30 mg/dl mg/dL (Negative) 09/25/18 07:25 Urine Glucose (UA) Neg mg/dL (Negative) 09/25/18 07:25 Urine Ketones Neg mg/dL (Negative) 09/25/18 07:25 Urine Blood Mod (Negative) 09/25/18 07:25 Urine Nitrite Neg (Negative) 09/25/18 07:25 Urine Bilirubin Neg (Negative) 09/25/18 07:25 Urine Urobilinogen 4.0 mg/dL (<2.0) 09/25/18 07:25 Ur Leukocyte Esterase Neg (Negative) 09/25/18 07:25 Urine WBC (Auto) 7.0 /HPF (0.0-6.0) H 09/25/18 07:25 Urine RBC (Auto) 2.0 /HPF (0.0-6.0) 09/25/18 07:25 U Epithel Cells (Auto) < 1.0 /HPF (0-13.0) 09/25/18 07:25 Blood Type O POSITIVE 09/28/18 14:20 Antibody Screen Negative 09/28/18 14:20 Nutrition/Malnutrition Assess - Dietary Evaluation Nutrition/Malnutrition Findings: Nutrition Notes Start: 09/30/18 12:11 Freq: Status: Active Protocol: Document 10/04/18 16:17 [facility] (Rec: 10/04/18 16:31 [facility] [id number]) Nutrition Notes Initial or Follow up Assessment Current Diagnosis Sepsis Other Pertinent Diagnosis Sigmoid diverticulitis with perforation s/p sigmoid colectomy Current Diet Cl liq Labs/Tests No recent available Pertinent Medications Reviewed Height 6 ft Weight 111.1 kg [place] Body Weight (kg) 80.90 BMI 33.2 Subjective/Other Information Diet advanced for lunch today. Pt tolerating PO; wants solid food. He has a colostomy; he has questions related to diet and colostomy. Burn Absent Trauma Absent #1 Nutrition Diagnosis Food and nutrition-related knowledge deficit Etiology new colostomy As Evidenced by Signs and Symptoms pt with questions related to diet and colostomy Is patient on ventilator? No Is Patient Ambulatory and/or Out of Bed Yes REE-([place]-St. Jeor-ambulatory/OOB) [ 2559.700 NUTR.MSJOOB] Kcal/Kg value to use for calculation 19 Approximate Energy Requirements Using 2111 kcal/Kg Calculation Used for Recommendations Kcal/kg Additional Notes Pro needs 0.8-1g/kg adjBW: 77- 96g/day Fluid needs 1ml/kcal Nutrition Intervention Change Diet Order: Continue current diet order; advance as tolerated Teaching Recipient Patient Significant Other Learning Readiness Good Teaching Methods Discussion Handout Response to Teaching Verbalize understanding Education Handouts Provided Colostomy Nutrition Therapy Barriers to Learning No Barriers RD phone number provided Yes Patient aware of follow up options Yes Goal #1 Continued PO tolerance Goal #2 Diet advancement to meet nutrient needs Follow-Up By: 10/07/18 Additional Comments F/U: diet advancement, PO tolerance
[2018-10-06] MEDS: NORCO 5/325 PO PRN ×4 (01:55→22:04)
[2018-10-06] MEDS: FLAGYL PO SCH ×3 (06:26→22:03)
--- NOTE | 2018-10-06 08:13 | Discharge Summary ---
Providers - Providers Date of Admission: 09/25/18 10:39 Attending physician: ASHUTOSH PABON MD 09/25/18 10:29 Consult to Physician [CONS] Routine Comment: Consulting Provider: ISAI RAMÍREZ Physician Instructions: Reason For Exam: diverticulitis with phlegmon/peritonitis 09/28/18 18:02 Consult to Wound/ET Nurse [CONS] Routine Reason For Exam: begin wd care Fri am Consult to Wound/ET Nurse [CONS] Routine Reason For Exam: wound eval 09/29/18 12:43 Physical Therapy Evaluation and Treat [CONS] Urgent Comment: Reason For Exam: first time OOB to chair post surgery Assistive devices?: Yes If so list: Walker Primary care physician: NATHAN BUSH Hospitalization Reason for admission: bowel pain Condition: Stable Hospital course: This is a 50-year-old male with abdominal pain who has just been recently placed in the bed. He tells me he's had left lower quadrant pain for the past approximately 3 days. He is a bit vague as to the acuity of onset. He states it's been progressive over the last 3 days and have bring his ability to walk. This is his first medical evaluation. The pain is severe. He is found to have an exquisitely tender abdomen. He states he's had no prior abdominal surgery however examination revealed presence of a previous inguinal hernia repair. He states he's had a lumbar fusion. On admission patient was seen by surgery and underwent sigmoid Colectomy with end colostomy with melody pouch and partial omentectomy. He was monitored carefully and now tolerating diet. Education provided. Discharge Diagnosis Sigmoid diverticulitis with perforation status post sigmoid colectomy with end colostomy Sepsis Sinus tach RAMANDEEP secondary to Vasomotor Disposition: DC/TX-06 HOME UNDER HOME [facility] Time spent for discharge: 35 mins Core Measure Documentation - Palliative Care Palliative Care/ Comfort Measures: Not Applicable - Core Measures Any of the following diagnoses?: none Exam - Physical Exam Narrative exam: VITAL SIGNS: Reviewed. GENERAL: The patient appeared well nourished and normally developed. Vital signs as documented. HEAD: No signs of head trauma. EYES: Pupils are equal. Extraocular motions intact. EARS: Hearing grossly intact. MOUTH: Oropharynx is normal. NECK: No adenopathy, no JVD. CHEST: Chest with clear breath sounds bilaterally. No wheezes, rales, or rhonchi. CARDIAC: Regular rate and rhythm. S1 and S2, without murmurs, gallops, or rubs. VASCULAR: No Edema. Peripheral pulses normal and equal in all extremities. ABDOMEN: Soft, colostomy and ostomy. No rebound or guarding, and no masses palpated. Bowel Sounds normal. MUSCULOSKELETAL: Good range of motion of all major joints. Extremities without clubbing, cyanosis or edema. NEUROLOGIC EXAM: Alert and oriented x 3. No focal sensory or strength deficits. Speech normal. Follows commands. PSYCHIATRIC: Mood normal. SKIN: No rash or lesions. - Constitutional Vitals: Temp Pulse Resp BP Pulse Ox 97.7 F 83 18 139/88 96 10/06/18 07:50 10/06/18 07:50 10/06/18 07:50 10/06/18 07:50 10/06/18 07:50 Plan Activity: advance as tolerated, fall precautions Diet: advance as tolerated Wound: per your surgeon's advice Follow up with: NATHAN BUSH [Primary Care Provider] - 3-5 Days DEREK MARRERO MD [Staff Physician] - 7 Days Prescriptions: Docusate Sodium [Colace] 100 mg PO BID PRN #30 capsule PRN Reason: Constipation Famotidine [Pepcid] 20 mg PO BID #30 tablet HYDROcodone/APAP 5-325 [Shiner 5-325 mg TAB] 2 each PO Q4H PRN #14 tablet PRN Reason: Pain , Severe (7-10)
[2018-10-06] MEDS: PEPCID PO SCH ×2 (09:12→22:04)
[2018-10-06] MEDS: LEVAQUIN PO SCH (09:12)
--- NOTE | 2018-10-06 12:18 | Progress Note ---
Assessment and Plan Pt feeling well. chuckie full liq diet Abd soft. wd clean surgically stable Davol sump drain removed advance to reg diet this am december d/c in am if solid diet has been chuckie, cleared by ID, and home health arrangements for local wd care completed would need po antibiotics and pain meds on d/c rto this Wednesday Objective Vital Signs - 12hr 10/06/18 10/06/18 10/06/18 01:55 02:55 04:42 Temperature 98.2 F Pulse Rate 83 Respiratory 18 18 20 Rate Blood Pressure 134/105 O2 Sat by Pulse 98 Oximetry 10/06/18 10/06/18 10/06/18 06:26 07:50 08:28 Temperature 97.7 F Pulse Rate 83 Respiratory 18 18 Rate Blood Pressure 139/88 O2 Sat by Pulse 96 99 Oximetry - Labs 10/02/18 04:17 09/30/18 04:28
--- NOTE | 2018-10-06 15:01 | Progress Note ---
Assessment and Plan Assessment and plan: This is a 50-year-old male with abdominal pain who has just been recently placed in the bed. He tells me he's had left lower quadrant pain for the past approximately 3 days. He is a bit vague as to the acuity of onset. He states it's been progressive over the last 3 days and have bring his ability to walk. This is his first medical evaluation. The pain is severe. He is found to have an exquisitely tender abdomen. He states he's had no prior abdominal surgery however examination revealed presence of a previous inguinal hernia repair. He states he's had a lumbar fusion. 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 - Per surgery, ok with ice chips Sepsis - IV fluids - IV zosyn changed to cefepime and flagyl per ID - Continue to follow culture - WBC is trending down - Surgery and ID is on board - surgery said possible NG tube removal in the morning Sinus tach - likely due to the above - No chest pain or shortness of breath RAMANDEEP secondary to Vasomotor Improved DVT/GI prophy Plan discussed with patient in detail. Anticipate discharge in AM Diet advanced today History Interval history: Patient is seen today for: Abdominal pain status post ostomy Seen and examined at bedside; 24hour events reviewed; nursing staff ; no adverse overnight events reported to me; Denies any chest pain, nausea, vomiting, diarrhea No fever noted blood pressure controlled Hospitalist Physical - Physical exam Narrative exam: VITAL SIGNS: Reviewed. GENERAL: The patient appeared well nourished and normally developed. Vital signs as documented. HEAD: No signs of head trauma. EYES: Pupils are equal. Extraocular motions intact. EARS: Hearing grossly intact. MOUTH: Oropharynx is normal. NECK: No adenopathy, no JVD. CHEST: Chest with clear breath sounds bilaterally. No wheezes, rales, or rhonchi. CARDIAC: Regular rate and rhythm. S1 and S2, without murmurs, gallops, or rubs. VASCULAR: No Edema. Peripheral pulses normal and equal in all extremities. ABDOMEN: Soft, colostomy and ostomy. No rebound or guarding, and no masses palpated. Bowel Sounds normal. MUSCULOSKELETAL: Good range of motion of all major joints. Extremities without clubbing, cyanosis or edema. NEUROLOGIC EXAM: Alert and oriented x 3. No focal sensory or strength deficits. Speech normal. Follows commands. PSYCHIATRIC: Mood normal. SKIN: No rash or lesions. - Constitutional Vitals: Temp Pulse Resp BP Pulse Ox 97.9 F 80 18 154/101 98 10/06/18 11:35 10/06/18 11:35 10/06/18 11:35 10/06/18 11:35 10/06/18 11:35 General appearance: Present: no acute distress, well-nourished Results - Labs CBC & Chem 7: 10/02/18 04:17 09/30/18 04:28 Labs: Laboratory Last Values WBC 11.4 K/mm3 (4.5-11.0) H 10/02/18 04:17 RBC 3.80 M/mm3 (3.65-5.03) 10/02/18 04:17 Hgb 10.9 gm/dl (11.8-15.2) L 10/02/18 04:17 Hct 32.0 % (35.5-45.6) L 10/02/18 04:17 MCV 84 fl (84-94) 10/02/18 04:17 MCH 29 pg (28-32) 10/02/18 04:17 MCHC 34 % (32-34) 10/02/18 04:17 RDW 15.8 % (13.2-15.2) H 10/02/18 04:17 Plt Count 265 K/mm3 (140-440) 10/02/18 04:17 Lymph % (Auto) 4.9 % (13.4-35.0) L 10/02/18 04:17 Sharkey % (Auto) 7.0 % (0.0-7.3) 10/02/18 04:17 Eos % (Auto) 3.5 % (0.0-4.3) 10/02/18 04:17 Baso % (Auto) 0.6 % (0.0-1.8) 10/02/18 04:17 Lymph # 0.6 K/mm3 (1.2-5.4) L 10/02/18 04:17 Sharkey # 0.8 K/mm3 (0.0-0.8) 10/02/18 04:17 Eos # 0.4 K/mm3 (0.0-0.4) 10/02/18 04:17 Baso # 0.1 K/mm3 (0.0-0.1) 10/02/18 04:17 Add Manual Diff Complete 09/28/18 11:15 Total Counted 100 09/28/18 11:15 Seg Neutrophils % 84.0 % (40.0-70.0) H 10/02/18 04:17 Seg Neuts % (Manual) 92.0 % (40.0-70.0) H 09/28/18 11:15 Band Neutrophils % 0 % 09/28/18 11:15 Lymphocytes % (Manual) 5.0 % (13.4-35.0) L 09/28/18 11:15 Reactive Lymphs % (Man) 0 % 09/28/18 11:15 Monocytes % (Manual) 3.0 % (0.0-7.3) 09/28/18 11:15 Eosinophils % (Manual) 0 % (0.0-4.3) 09/28/18 11:15 Basophils % (Manual) 0 % (0.0-1.8) 09/28/18 11:15 Metamyelocytes % 0 % 09/28/18 11:15 Myelocytes % 0 % 09/28/18 11:15 Promyelocytes % 0 % 09/28/18 11:15 Blast Cells % 0 % 09/28/18 11:15 Nucleated RBC % Not Reportable 09/28/18 11:15 Seg Neutrophils # 9.6 K/mm3 (1.8-7.7) H 10/02/18 04:17 Seg Neutrophils # Man 8.0 K/mm3 (1.8-7.7) H 09/28/18 11:15 Band Neutrophils # 0.0 K/mm3 09/28/18 11:15 Lymphocytes # (Manual) 0.4 K/mm3 (1.2-5.4) L 09/28/18 11:15 Abs React Lymphs (Man) 0.0 K/mm3 09/28/18 11:15 Monocytes # (Manual) 0.3 K/mm3 (0.0-0.8) 09/28/18 11:15 Eosinophils # (Manual) 0.0 K/mm3 (0.0-0.4) 09/28/18 11:15 Basophils # (Manual) 0.0 K/mm3 (0.0-0.1) 09/28/18 11:15 Metamyelocytes # 0.0 K/mm3 09/28/18 11:15 Myelocytes # 0.0 K/mm3 09/28/18 11:15 Promyelocytes # 0.0 K/mm3 09/28/18 11:15 Blast Cells # 0.0 K/mm3 09/28/18 11:15 WBC Morphology Not Reportable 09/28/18 11:15 Hypersegmented Neuts Not Reportable 09/28/18 11:15 Hyposegmented Neuts Not Reportable 09/28/18 11:15 Hypogranular Neuts Not Reportable 09/28/18 11:15 Smudge Cells Not Reportable 09/28/18 11:15 Toxic Granulation Not Reportable 09/28/18 11:15 Toxic Vacuolation Not Reportable 09/28/18 11:15 Dohle Bodies Not Reportable 09/28/18 11:15 Pelger-Huet Anomaly Not Reportable 09/28/18 11:15 Nkechi Rods Not Reportable 09/28/18 11:15 Platelet Estimate Consistent w auto 09/28/18 11:15 Clumped Platelets Not Reportable 09/28/18 11:15 Plt Clumps, EDTA Not Reportable 09/28/18 11:15 Large Platelets Not Reportable 09/28/18 11:15 Giant Platelets Not Reportable 09/28/18 11:15 Platelet Satelliting Not Reportable 09/28/18 11:15 Plt Morphology Comment Not Reportable 09/28/18 11:15 RBC Morphology Not Reportable 09/28/18 11:15 Dimorphic RBCs Not Reportable 09/28/18 11:15 Polychromasia Not Reportable 09/28/18 11:15 Hypochromasia Not Reportable 09/28/18 11:15 Poikilocytosis 1+ 09/28/18 11:15 Anisocytosis 1+ 09/28/18 11:15 Microcytosis Not Reportable 09/28/18 11:15 Macrocytosis Not Reportable 09/28/18 11:15 Spherocytes Not Reportable 09/28/18 11:15 Pappenheimer Bodies Not Reportable 09/28/18 11:15 Sickle Cells Not Reportable 09/28/18 11:15 Target Cells Not Reportable 09/28/18 11:15 Tear Drop Cells Not Reportable 09/28/18 11:15 Ovalocytes Few 09/28/18 11:15 Helmet Cells Not Reportable 09/28/18 11:15 Garcia-Lydia Bodies Not Reportable 09/28/18 11:15 [place] Rings Not Reportable 09/28/18 11:15 [place] Cells Not Reportable 09/28/18 11:15 Bite Cells Not Reportable 09/28/18 11:15 Crenated Cell Not Reportable 09/28/18 11:15 Elliptocytes Not Reportable 09/28/18 11:15 Acanthocytes (Spur) Not Reportable 09/28/18 11:15 Rouleaux Not Reportable 09/28/18 11:15 Hemoglobin C Crystals Not Reportable 09/28/18 11:15 Schistocytes Not Reportable 09/28/18 11:15 Malaria parasites Not Reportable 09/28/18 11:15 Salo Bodies Not Reportable 09/28/18 11:15 Hem Pathologist Commnt No 09/28/18 11:15 PT 15.0 Sec. (12.2-14.9) H 09/25/18 08:00 INR 1.14 (0.87-1.13) H 09/25/18 08:00 APTT 36.5 Sec. (24.2-36.6) 09/25/18 08:00 Sodium 145 mmol/L (137-145) 09/30/18 04:28 Potassium 4.5 mmol/L (3.6-5.0) 09/30/18 04:28 Chloride 108.1 mmol/L (98-107) H 09/30/18 04:28 Carbon Dioxide 27 mmol/L (22-30) 09/30/18 04:28 Anion Gap 14 mmol/L 09/30/18 04:28 BUN 9 mg/dL (9-20) 09/30/18 04:28 Creatinine 1.0 mg/dL (0.8-1.5) 09/30/18 04:28 Estimated GFR > 60 ml/min 09/30/18 04:28 BUN/Creatinine Ratio 9 % 09/30/18 04:28 Glucose 140 mg/dL (75-100) H 09/30/18 04:28 POC Glucose 114 (70-105) H 09/30/18 09:40 Lactic Acid 1.10 mmol/L (0.7-2.0) 09/28/18 21:44 Calcium 7.9 mg/dL (8.4-10.2) L 09/30/18 04:28 Magnesium 1.90 mg/dL (1.7-2.3) 09/25/18 08:00 Total Bilirubin 3.50 mg/dL (0.1-1.2) H 09/30/18 04:28 AST 33 units/L (5-40) 09/30/18 04:28 ALT 15 units/L (7-56) 09/30/18 04:28 Alkaline Phosphatase 69 units/L (35-129) 09/30/18 04:28 NT-Pro-B Natriuret Pep 160.5 pg/mL (0-900) 09/25/18 08:00 Total Protein 6.4 g/dL (6.3-8.2) 09/30/18 04:28 Albumin 2.5 g/dL (3.9-5) L 09/30/18 04:28 Albumin/Globulin Ratio 0.6 % 09/30/18 04:28 Lipase 13 units/L (13-60) 09/25/18 07:03 Urine Color Tania (Yellow) 09/25/18 07:25 Urine Turbidity Clear (Clear) 09/25/18 07:25 Urine pH 5.0 (5.0-7.0) 09/25/18 07:25 Ur Specific Dana 1.014 (1.003-1.030) 09/25/18 07:25 Urine Protein 30 mg/dl mg/dL (Negative) 09/25/18 07:25 Urine Glucose (UA) Neg mg/dL (Negative) 09/25/18 07:25 Urine Ketones Neg mg/dL (Negative) 09/25/18 07:25 Urine Blood Mod (Negative) 09/25/18 07:25 Urine Nitrite Neg (Negative) 09/25/18 07:25 Urine Bilirubin Neg (Negative) 09/25/18 07:25 Urine Urobilinogen 4.0 mg/dL (<2.0) 09/25/18 07:25 Ur Leukocyte Esterase Neg (Negative) 09/25/18 07:25 Urine WBC (Auto) 7.0 /HPF (0.0-6.0) H 09/25/18 07:25 Urine RBC (Auto) 2.0 /HPF (0.0-6.0) 09/25/18 07:25 U Epithel Cells (Auto) < 1.0 /HPF (0-13.0) 09/25/18 07:25 Blood Type O POSITIVE 09/28/18 14:20 Antibody Screen Negative 09/28/18 14:20 Nutrition/Malnutrition Assess - Dietary Evaluation Nutrition/Malnutrition Findings: Nutrition Notes Start: 09/30/18 12:11 Freq: Status: Active Protocol: Document 10/04/18 16:17 DANNY (Rec: 10/04/18 16:31 DANNY [email or web address]) Nutrition Notes Initial or Follow up Assessment Current Diagnosis Sepsis Other Pertinent Diagnosis Sigmoid diverticulitis with perforation s/p sigmoid colectomy Current Diet Cl liq Labs/Tests No recent available Pertinent Medications Reviewed Height 6 ft Weight 111.1 kg [place] Body Weight (kg) 80.90 BMI 33.2 Subjective/Other Information Diet advanced for lunch today. Pt tolerating PO; wants solid food. He has a colostomy; he has questions related to diet and colostomy. Burn Absent Trauma Absent #1 Nutrition Diagnosis Food and nutrition-related knowledge deficit Etiology new colostomy As Evidenced by Signs and Symptoms pt with questions related to diet and colostomy Is patient on ventilator? No Is Patient Ambulatory and/or Out of Bed Yes REE-(Prentiss-St. Jeor-ambulatory/OOB) [ 2559.700 NUTR.[id number]] Kcal/Kg value to use for calculation 19 Approximate Energy Requirements Using 2111 kcal/Kg Calculation Used for Recommendations Kcal/kg Additional Notes Pro needs 0.8-1g/kg adjBW: 77- 96g/day Fluid needs 1ml/kcal Nutrition Intervention Change Diet Order: Continue current diet order; advance as tolerated Teaching Recipient Patient Significant Other Learning Readiness Good Teaching Methods Discussion Handout Response to Teaching Verbalize understanding Education Handouts Provided Colostomy Nutrition Therapy Barriers to Learning No Barriers RD phone number provided Yes Patient aware of follow up options Yes Goal #1 Continued PO tolerance Goal #2 Diet advancement to meet nutrient needs Follow-Up By: 10/07/18 Additional Comments F/U: diet advancement, PO tolerance
[2018-10-07] MEDS: NORCO 5/325 PO PRN ×2 (01:43→08:39)
[2018-10-07 04:20] VITALS: BP 148/97
[2018-10-07 04:27] LABS: Basophils # (Auto) 0.1 K/mm3 (0.0-0.1); Basophils % (Auto) 0.9 % (0.0-1.8); Eosinophils # (Auto) 0.3 K/mm3 (0.0-0.4); Eosinophils % (Auto) 4.2 % (0.0-4.3); Hematocrit 34.2 % (35.5-45.6); Hemoglobin 11.9 gm/dl (11.8-15.2); Lymphocytes # (Auto) 1.2 K/mm3 (1.2-5.4); Lymphocytes % (Auto) 16.6 % (13.4-35.0); Mean Corpuscular HGB Conc 35 % (32-34); Mean Corpuscular Volume 83 fl (84-94); Monocytes # (Auto) 0.6 K/mm3 (0.0-0.8); Monocytes % (Auto) 8.7 % (0.0-7.3); Platelet Count 357 K/mm3 (140-440); Red Blood Count 4.11 M/mm3 (3.65-5.03); Red Cell Distribution Width 15.8 % (13.2-15.2)
--- NOTE | 2018-10-07 07:25 | Progress Note ---
Assessment and Plan Pt feeling well without compl. chuckie reg diet Abd soft stable december d/c from surg perspective. rto Wednesday Selected Entries 10/06/18 10/06/18 10/07/18 07:50 08:28 00:44 Temperature 97.7 F Pulse Rate 83 Respiratory Rate O2 Sat by Pulse 99 Oximetry Blood Pressure 139/88 137/91 10/07/18 04:19 Temperature 98.3 F Pulse Rate Respiratory 17 Rate O2 Sat by Pulse 94 Oximetry Blood Pressure Laboratory Tests 10/07/18 04:07 WBC 7.3 Hgb 11.9 Hct 34.2 L Objective Vital Signs - 12hr 10/06/18 10/06/18 10/07/18 20:38 20:39 00:44 Temperature 98.4 F 98.2 F Pulse Rate 80 80 86 Respiratory 18 18 Rate Blood Pressure 148/102 137/91 Blood Pressure [Right] O2 Sat by Pulse 98 99 98 Oximetry 10/07/18 10/07/18 04:02 04:19 Temperature 98.3 F Pulse Rate 84 84 Respiratory 17 Rate Blood Pressure Blood Pressure 148/97 [Right] O2 Sat by Pulse 99 94 Oximetry - Labs 10/07/18 04:07 09/30/18 04:28
[2018-10-07] MEDS: PEPCID PO SCH (10:57)
[2018-10-07] MEDS ORDERED: AFLURIA QUAD 2018-2019 SYRINGE IM ONE (12:00)
== END 2018-10-07 11:20 | disposition home health service (06) | DRG 854 ==
LOC: ED 06:04 → IMCU 10:39 → 3B-SURG 09-27 12:31 → IMCU 09-28 19:18 → 3B-SURG 10-01 14:20
PROVIDERS: ADMIT Internal Medicine; ATTEND Internal Medicine
PROC: 0DBN0ZZ Excision of Sigmoid Colon, Open Approach (ICD-10-PCS; principal; 2018-09-28)
PROC: 0DBU0ZZ Excision of Omentum, Open Approach (ICD-10-PCS; 2018-09-28)
PROC: 0D1N0Z4 Bypass Sigmoid Colon to Cutaneous, Open Approach (ICD-10-PCS; 2018-09-28)
PROC: 0DNL0ZZ Release Transverse Colon, Open Approach (ICD-10-PCS; 2018-09-28)
PROC: 0D9W30Z Drainage of Peritoneum with Drainage Device, Percutaneous Approach (ICD-10-PCS; 2018-09-28)
DX: A41.9 Sepsis, unspecified organism (principal); K57.20 Diverticulitis of large intestine with perforation and abscess without bleeding; L02.91 Cutaneous abscess, unspecified; N17.9 Acute kidney failure, unspecified; Z96.653 Presence of artificial knee joint, bilateral; F17.210 Nicotine dependence, cigarettes, uncomplicated; I10 Essential (primary) hypertension; Z82.49 Family history of ischemic heart disease and other diseases of the circulatory system
CPT/HCPCS: 36415; 71045; 74018; 74176; 74177; 80048; 80053; 81001; 82140; 82962; 83690; 83735; 83880; 85007; 85025; 85610; 85730; 86850; 86900; 86901; 87040; 87075; 87076; 87116; 87186; 88307; 90686; 93005; 93010; 94760; 96365; 96375; G0378; A4367; J0330; J0692; J0696; J1100; J1170; J1885; J2270; J2405; J2543; J2704; J3010; J7030; J7120; Q9967